=== PATIENT | male | born 1990 | race Caucasian/White ===

== ENCOUNTER 2018-12-29 18:16 | Emergency (ER) | payer OTHER ==
[2018-12-29] MEDS ORDERED: Proparacaine 0.5% Ophth Soln 15 ML Bottle EYEBOTH ONE (19:03)
[2018-12-29] MEDS ORDERED: Benoxinate/Fluorescein 0.4-0.25% Ophth Soln 5 ML Bottle EYEBOTH ONE (19:03)
[2018-12-29] MEDS ORDERED: Fluorescein 0.6 MG Ophth Strip ONE (19:06)
--- NOTE | 2018-12-29 19:24 | EDM.PDOC ---
ED HPI GENERAL MEDICAL PROBLEM - General Chief Complaint: Eye Problems Stated Complaint: FB IN EYE Time Seen by Provider: 12/29/18 18:53 Source of Information: Reports: Patient History Limitations: Reports: No Limitations - History of Present Illness INITIAL COMMENTS - FREE TEXT/NARRATIVE: The patient was working wit a saws all today at work on metal and he thinks he has a piece of metal in his left eye. He has pain and irritation and he has blurry vision. He says the blurry vision is better now. He was not welding or grinding. He did flush out his eye. Onset: Sudden Duration: Hour(s): Location: Reports: Other (Left eye) Quality: Reports: Sharp Severity: Moderate Improves with: Reports: None Worsens with: Reports: None Associated Symptoms: Reports: No Other Symptoms - Related Data Allergies Allergy/AdvReac Type Severity Reaction Status Date / Time No Known Allergies Allergy Verified 12/29/18 18:31 Home Meds: Home Meds Ciprofloxacin [Ciprofloxacin 0.3% Ophth Soln] 1 drop EYELF Q4HR #1 bottle [Rx] Past Medical History - Past Health History Medical/Surgical History: Denies Medical/Surgical History Social & Family History - Tobacco Use Smoking Status *Q: Never Smoker - Caffeine Use Caffeine Use: Reports: Energy Drinks - Recreational Drug Use Recreational Drug Use: No ED ROS GENERAL - Review of Systems Review Of Systems: See Below Constitutional: Reports: No Symptoms HEENT: Reports: Eye Pain Respiratory: Reports: No Symptoms Cardiovascular: Reports: No Symptoms Endocrine: Reports: No Symptoms GI/Abdominal: Reports: No Symptoms : Reports: No Symptoms ED EXAM GENERAL W FULL EYE - Physical Exam Exam: See Below Exam Limited By: No Limitations General Appearance: Alert, No Apparent Distress Eye Exam: Left Eye: Conjunctival Injection, Corneal Abrasion, Bilateral Eye: EOMI, PERRL Eyelids: Left: Lid Everted for Exam, Bilateral: Normal Appearance Conjunctiva & Sclera: Left: Injected Cornea Exam: Left: Corneal Abrasion Extraocular Movements: Bilateral: Intact Pupillary Reaction: Bilateral: Brisk Anterior Chamber: Left: Normal Appearance Ears: Normal External Exam Nose: Normal Inspection Head: Atraumatic, Normocephalic Course - Vital Signs Last Recorded V/S: Last Vital Signs Temp 97.4 F 12/29/18 18:29 Pulse 70 12/29/18 18:29 Resp 16 12/29/18 18:29 BP 152/78 H 12/29/18 18:29 Pulse Ox 95 12/29/18 18:29 - Orders/Labs/Meds Meds: Medications Discontinued Medications Generic Name Dose Route Start Last Admin Trade Name Anastacio PRN Reason Stop Dose Admin Fluorescein Sodium Confirm 12/29/18 19:06 12/29/18 19:13 Ful-Sylvia Administered 12/29/18 19:07 1.2 mg Dose Administration 1.2 mg .ROUTE .STK-MED ONE Fluorescein Sodium/Benoxinate HCl 1 ml 12/29/18 19:03 12/29/18 19:13 Fluress Ophth Soln EYEBOTH 12/29/18 19:04 Not Given ONETIME ONE Proparacaine HCl 1 ml 12/29/18 19:03 12/29/18 19:13 Proparacaine 0.5% Ophth Soln EYEBOTH 12/29/18 19:04 1 ml ONETIME ONE Administration - Re-Assessments/Exams Free Text/Narrative Re-Assessment/Exam: 12/29/18 19:26 He has a corneal abrasion. I will get him on some cipro drops. Departure - Departure Time of Disposition: 19:30 Disposition: Home, Self-Care 01 Condition: Good Clinical Impression: Corneal abrasion Qualifiers: Encounter type: initial encounter Laterality: left Qualified Code(s): S05.02XA - Injury of conjunctiva and corneal abrasion without foreign body, left eye, initial encounter - Discharge Information *PRESCRIPTION DRUG MONITORING PROGRAM REVIEWED*: Not Applicable *COPY OF PRESCRIPTION DRUG MONITORING REPORT IN PATIENT CAESAR: Not Applicable Prescriptions: Ciprofloxacin [Ciprofloxacin 0.3% Ophth Soln] 1 drop EYELF Q4HR #1 bottle Referrals: PCP,None [Primary Care Provider] - Forms: ED Department Discharge Additional Instructions: Take tylenol or motrin for pain. Use the cipro eye drops 1 drop in the left eye every 4 hours while awake for 1 week. Please return if you are worse.
== END 2018-12-29 19:39 | disposition home or self-care (01) ==
LOC: JD.ED 18:16
DX: S05.02XA Injury of conjunctiva and corneal abrasion without foreign body, left eye, initial encounter (principal); X58.XXXA Exposure to other specified factors, initial encounter
CPT/HCPCS: 99283

== ENCOUNTER 2019-10-11 08:35 | Day surgery (SDC) | payer BC ==
[~2019-10-11 08:35] MED LIST: Lactated Ringers 1,000 ML IV SCH; Lidocaine 1%/Sod Bicarbonate in NS 8.4% 1 ML Syringe IDERM PRN; Sodium Chloride 0.9% 10 ML Syringe FLUSH PRN
[2019-10-11] MEDS ORDERED: Lidocaine 1% 4 ML ONE (08:45)
[2019-10-11] MEDS ORDERED: Propofol 200 MG/20 ML SDV ONE ×2 (08:46→08:48)
[2019-10-11] MEDS ORDERED: fentaNYL 100 MCG/2 ML SDV ONE (08:46)
[2019-10-11] MEDS ORDERED: Ondansetron 4 MG/2 ML SDV IVPUSH PRN (09:23)
--- NOTE | 2019-10-11 09:23 | PCM.PREANE ---
Preanesthetic Assessment - Procedure Proposed Procedure: EGD - Anesthesia/Transfusion/Family Hx Anesthesia History: Prior Anesthesia Without Reaction Family History of Anesthesia Reaction: No Additional History: No previous problems with anesthesia or with intubation - Review of Systems General: No Symptoms Pulmonary: No Symptoms Cardiovascular: No Symptoms Gastrointestinal: No Symptoms Neurological: No Symptoms Other: Reports: None - Physical Assessment NPO Status Date: 10/10/19 NPO Status Time: 23:00 Vital Signs: Last Vital Signs Temp 36.2 C 10/11/19 08:40 Pulse 84 10/11/19 08:40 Resp 16 10/11/19 08:40 BP 138/84 10/11/19 08:40 Pulse Ox 97 10/11/19 08:40 Height: 6 ft 2 in Weight: 140.16 kg ASA Class: 2 Mental Status: Alert & Oriented x3 Airway Class: Mallampati = 2 Dentition: Reports: Normal Dentition Thyro-Mental Finger Breadths: 3 (heavy moreno) Mouth Opening Finger Breadths: 3 ROM/Head Extension: Full Lungs: Clear to Auscultation, Normal Respiratory Effort Cardiovascular: Regular Rate, Regular Rhythm - Allergies Allergies/Adverse Reactions: Allergies Allergy/AdvReac Type Severity Reaction Status Date / Time No Known Allergies Allergy Verified 10/10/19 13:17 - Acknowledgements Anesthesia Type Planned: MAC Pt an Appropriate Candidate for the Planned Anesthesia: Yes Alternatives and Risks of Anesthesia Discussed w Pt/Guardian: Yes Pt/Guardian Understands and Agrees with Anesthesia Plan: Yes PreAnesthesia Questionnaire - Past Health History Medical/Surgical History: Denies Medical/Surgical History HEENT History: Reports: Impaired Vision Cardiovascular History: Reports: Other (See Below) Other Cardiovascular History: chest pain, palpitations, pericarditis Respiratory History: Reports: SOB Gastrointestinal History: Reports: GERD, Other (See Below) Other Gastrointestinal History: anal fistula, pilonidal cyst, melanosis coli Genitourinary History: Reports: None MANAGER NUCLEAR History: Reports: None Musculoskeletal History: Reports: None Neurological History: Reports: None Psychiatric History: Reports: None Endocrine/Metabolic History: Reports: Obesity/BMI 30+ Hematologic History: Reports: None Immunologic History: Reports: None Oncologic (Cancer) History: Reports: None Dermatologic History: Reports: None - Infectious Disease History Infectious Disease History: Reports: Chicken Pox - Past Surgical History Head Surgeries/Procedures: Reports: None HEENT Surgical History: Reports: None Cardiovascular Surgical History: Reports: None Respiratory Surgical History: Reports: None GI Surgical History: Reports: Colonoscopy Female Surgical History: Reports: None Male Surgical History: Reports: None Endocrine Surgical History: Reports: None Neurological Surgical History: Reports: None Musculoskeletal Surgical History: Reports: None Oncologic Surgical History: Reports: None Dermatological Surgical History: Reports: None - SUBSTANCE USE Smoking Status *Q: Former Smoker Recreational Drug Use History: No - HOME MEDS Home Medications: Home Meds Omeprazole Magnesium [Prilosec Otc] 40 mg PO DAILY 08/17/19 [History] Colchicine 0.6 mg PO BID 10/10/19 [History] Indomethacin 50 mg PO DAILY 10/10/19 [History] Polyethylene Glycol 3350 [MiraLAX] 17 g PO DAILY PRN 10/10/19 [History] hydrOXYzine HCL [hydrOXYzine] 25 mg PO ASDIRECTED PRN 10/10/19 [History] - CURRENT (IN HOUSE) MEDS Current Meds: Current Medications Lactated Ringer's (Ringers, Lactated) 1,000 mls @ 125 mls/hr IV ASDIRECTED MARTHA Stop: 10/11/19 23:00 Last Admin: 10/11/19 08:55 Dose: 125 mls/hr Lidocaine/Sodium Bicarbonate (Buffered Lidocaine 1% In Ns 8.4%) 0.25 ml IDERM ONETIME PRN PRN Reason: Prior to IV Start Stop: 10/11/19 18:00 Last Admin: 10/11/19 08:55 Dose: 0.25 ml Sodium Chloride (Saline Flush) 10 ml FLUSH ASDIRECTED PRN PRN Reason: Keep Vein Open Stop: 10/11/19 18:00 Discontinued Medications Fentanyl (Sublimaze) Confirm Administered Dose 100 mcg .ROUTE .STK-MED ONE Stop: 10/11/19 08:47 Lidocaine HCl (Xylocaine-Mpf 1%) Confirm Administered Dose 4 mls @ as directed .ROUTE .STK-MED ONE Stop: 10/11/19 08:46 Propofol (Diprivan 20 Ml) Confirm Administered Dose 200 mg .ROUTE .STK-MED ONE Stop: 10/11/19 08:47 Propofol (Diprivan 20 Ml) Confirm Administered Dose 200 mg .ROUTE .STK-MED ONE Stop: 10/11/19 08:49
--- NOTE | 2019-10-11 09:46 | PCM.POSTAN ---
POST ANESTHESIA ASSESSMENT - MENTAL STATUS Mental Status: Alert, Oriented - VITAL SIGNS Vital Signs: Last Vital Signs Temp 36.8 C 10/11/19 09:29 Pulse 71 10/11/19 09:29 Resp 16 10/11/19 09:29 BP 125/68 10/11/19 09:29 Pulse Ox 96 10/11/19 09:29 - RESPIRATORY Respiratory Status: Respiratory Rate WNL, Airway Patent, O2 Saturation Stable - CARDIOVASCULAR CV Status: Pulse Rate WNL, Blood Pressure Stable - GASTROINTESTINAL GI Status: No Symptoms - PAIN Pain Score: 0 - POST OP HYDRATION Hydration Status: Adequate & Stable - OBSERVATIONS Free Text/Narrative:: Routine MAC. Transfer to OPS with handoff to RN. VSS, SV, CASTRO, FAC, CTAB, 0/10. No concerns at this time.
--- NOTE | 2019-10-11 09:47 | PCM48HPAN ---
Post Anesthesia Note - EVALUATION WITHIN 48HRS OF ANESTHETIC Vital Signs in Normal Range: Yes Patient Participated in Evaluation: Yes Respiratory Function Stable: Yes Airway Patent: Yes Cardiovascular Function Stable: Yes Hydration Status Stable: Yes Pain Control Satisfactory: Yes Nausea and Vomiting Control Satisfactory: Yes Mental Status Recovered: Yes Vital Signs: Last Vital Signs Temp 36.8 C 10/11/19 09:29 Pulse 71 10/11/19 09:29 Resp 16 10/11/19 09:29 BP 125/68 10/11/19 09:29 Pulse Ox 96 10/11/19 09:29 - COMMENTS/OBSERVATIONS Free Text/Narrative:: Routine. No concerns. Okay to discharge.
--- NOTE | 2019-10-11 09:54 | PCM.OPNOTE ---
- General Post-Op/Procedure Note Date of Surgery/Procedure: 10/11/19 Findings: 1. Gastritis 2. Small hiatal hernia (1-2cm) with mildly irregular GE junction 3. Abnormal duodenal mucosa Pre Op Diagnosis: Odynophagia and chest pain Post-Op Diagnosis: same Anesthesia Technique: MAC Primary Surgeon: Zoie Gonzalez Anesthesia Provider: Lasha Xie Pathology: 1. Duodenum biposy 2. GE junction and gastric antrum EBL in mLs: 0 Complications: none apparent Condition: Good
--- NOTE | 2019-10-11 10:01 | PCM.PRNOTE ---
- Free Text/Narrative Note: Operative Report Date of procedure: October 11, 2019 Preoperative diagnosis: Odynophagia and chest pain Postoperative diagnosis: Same Surgeon: Zoie Gonzalez M.D. Procedure: EGD with biopsy Anesthesia: MAC Anesthesiologist: Tyler Xie CRNA IV fluids: See anesthesia record Estimated blood loss: 0 mL Findings: 1. Gastritis 2. Small hiatal hernia (1-2cm) with mildly irregular GE junction 3. Abnormal duodenal mucosa Specimens: 1. Duodenal biopsy 2. GE junction and gastric antrum Indication: The patient is an 29 -year-old gentleman who presented with odynophagia and chest pain. The patient was consented for an EGD. Risk of perforation was discussed. The patient's consent was obtained Description of the procedure: The patient was taken to the endoscopy suite and placed on hemodynamic monitoring. The nurse core paster induced MAC anesthesia. A bite block was placed. The patient was positioned in the left lateral decubitus position. A timeout was performed. The endoscope was gently placed into the mouth to the back of the pharynx and introduced into the esophagus. The scope was gently advanced under direct visualization down to the level of the lower esophageal sphincter. A small sliding hiatal hernia (1-2 cm) was noted. The stomach was then entered. Normal rugal folds were noted with presence of bilious gastric secretions in the stomach. There was erythema diffusely in the stomach mucosa. The scope was advanced into the antrum. We noted gastritis. The pylorus was then entered and the first and second portion of the duodenum was inspected. We did note some abnormal appearance of the villous architecture and biopsies were taken with a cold biopsy forceps. There were no ulcerations in the duodenum. Biopsies were then taken with a cold biopsy forceps in the antrum. The scope was then retroflexed in the cardia and fundus were investigated. No other abnormalities were noted. The scope was then withdrawn while inspecting the esophagus. There was mild irregularity at the GE junction. Biopsies were taken with the cold biopsy forceps in 4 quadrants around the GE junction. There was no additional esophagitis. There was biliary secretions refluxing into the upper esophagus and near the vocal cords. This was suctioned. The procedure was terminated. the patient tolerated the procedure well without any evidence of complications. Instructions: Continue PPI. Follow-up with surgeon Zoie Gonzalez MD General Surgery
[2019-10-11] MEDS ORDERED: Midazolam 1 MG/ML 2 ML SDV IVPUSH ONE (11:58)
== END 2019-10-11 10:28 | disposition home or self-care (01) ==
LOC: JD.SDS 08:35
PROVIDERS: ATTEND Surgery
DX: K29.50 Unspecified chronic gastritis without bleeding (principal); K31.89 Other diseases of stomach and duodenum; K44.9 Diaphragmatic hernia without obstruction or gangrene; K22.8 Other specified diseases of esophagus; Z87.891 Personal history of nicotine dependence; Z79.899 Other long term (current) drug therapy
CPT/HCPCS: 00731; J2001; J2704; J3010; J7120

== ENCOUNTER 2020-07-08 06:59 | Observation (INO) | payer BC ==
[~2020-07-08 06:59] MED LIST changes: +Albuterol 0.083% 2.5 MG/3 ML Neb Soln NEB SCH
[2020-07-08] MEDS ORDERED: Lidocaine 1% 4 ML ONE (07:38)
[2020-07-08] MEDS ORDERED: Rocuronium 50 MG/5 ML Vial ONE ×5 (07:38→11:33)
[2020-07-08] MEDS ORDERED: Propofol 200 MG/20 ML SDV ONE ×3 (07:39→12:35)
[2020-07-08] MEDS ORDERED: fentaNYL 250 MCG/5 ML SDV ONE ×3 (07:39→10:38)
[2020-07-08] MEDS ORDERED: Ondansetron 4 MG/2 ML SDV ONE ×2 (08:19→13:41)
[2020-07-08] MEDS ORDERED: Dexamethasone 4 MG/ML 5 ML MDV ONE (08:19)
[2020-07-08] MEDS ORDERED: Morphine 10 MG/ML SDV ONE (08:20)
[2020-07-08] MEDS ORDERED: ceFAZolin 1 GM Vial ONE (08:22)
--- NOTE | 2020-07-08 08:30 | PCM.PREANE ---
Preanesthetic Assessment - Procedure Proposed Procedure: Laparoscopic Sam Fundoplication - Anesthesia/Transfusion/Family Hx Anesthesia History: Prior Anesthesia Without Reaction Family History of Anesthesia Reaction: No Transfusion History: Unknown - Review of Systems General: No Symptoms Pulmonary: No Symptoms Cardiovascular: No Symptoms Gastrointestinal: No Symptoms Neurological: No Symptoms Other: Reports: None - Physical Assessment NPO Status Date: 07/08/20 (greater than 8 hours) Vital Signs: Last Vital Signs Temp 36.1 C 07/08/20 07:10 Pulse 74 07/08/20 07:10 Resp 16 07/08/20 07:10 BP 133/79 07/08/20 07:10 Pulse Ox 96 07/08/20 07:10 Height: 6 ft 2 in Weight: 141.067 kg ASA Class: 2 Mental Status: Alert & Oriented x3 Airway Class: Mallampati = 3 Dentition: Reports: Normal Dentition Thyro-Mental Finger Breadths: 3 Mouth Opening Finger Breadths: 3 ROM/Head Extension: Full Lungs: Clear to Auscultation, Normal Respiratory Effort Cardiovascular: Regular Rate, Regular Rhythm - Lab Values: Laboratory Last Values SARS-CoV-2 (PCR) Not detected (NOT DETECT) 07/04/20 13:00 - Allergies Allergies/Adverse Reactions: Allergies Allergy/AdvReac Type Severity Reaction Status Date / Time No Known Allergies Allergy Verified 07/08/20 07:55 - Acknowledgements Anesthesia Type Planned: General Anesthesia Pt an Appropriate Candidate for the Planned Anesthesia: Yes Alternatives and Risks of Anesthesia Discussed w Pt/Guardian: Yes Pt/Guardian Understands and Agrees with Anesthesia Plan: Yes PreAnesthesia Questionnaire - Past Health History Medical/Surgical History: Denies Medical/Surgical History HEENT History: Reports: Impaired Vision Cardiovascular History: Reports: Other (See Below) Other Cardiovascular History: chest pain, palpitations, pericarditis Respiratory History: Reports: SOB Gastrointestinal History: Reports: GERD Other Gastrointestinal History: anal fistula, pilonidal cyst, melanosis coli Genitourinary History: Reports: Other (See Below) Other Genitourinary History: hematuria CHIEF OF FIELD OPERATIONS History: Reports: None Musculoskeletal History: Reports: None Neurological History: Reports: None Psychiatric History: Reports: None Endocrine/Metabolic History: Reports: Obesity/BMI 30+ Hematologic History: Reports: None Immunologic History: Reports: None Oncologic (Cancer) History: Reports: None Dermatologic History: Reports: None - Infectious Disease History Infectious Disease History: Reports: Chicken Pox - Past Surgical History Head Surgeries/Procedures: Reports: None HEENT Surgical History: Reports: None Cardiovascular Surgical History: Reports: None Respiratory Surgical History: Reports: None GI Surgical History: Reports: Colonoscopy, EGD, Other (See Below) Other GI Surgeries/Procedures: pilonidal cystectomy and anal fistulotomy Female Surgical History: Reports: None Male Surgical History: Reports: None Endocrine Surgical History: Reports: None Neurological Surgical History: Reports: None Musculoskeletal Surgical History: Reports: None Oncologic Surgical History: Reports: None Dermatological Surgical History: Reports: None - SUBSTANCE USE Smoking Status *Q: Former Smoker Recreational Drug Use History: No - HOME MEDS Home Medications: Home Meds Omeprazole Magnesium [Prilosec Otc] 40 mg PO DAILY 08/17/19 [History] - CURRENT (IN HOUSE) MEDS Current Meds: Current Medications Albuterol (Proventil Neb Soln) 2.5 mg NEB ONETIME MARTHA Stop: 07/08/20 18:00 Lactated Ringer's (Ringers, Lactated) 1,000 mls @ 125 mls/hr IV ASDIRECTED MARTHA Stop: 07/08/20 23:00 Last Admin: 07/08/20 07:15 Dose: 125 mls/hr Documented by: Lidocaine/Sodium Bicarbonate (Buffered Lidocaine 1% In Ns 8.4%) 0.25 ml IDERM ONETIME PRN PRN Reason: Prior to IV Start Stop: 07/08/20 18:00 Last Admin: 07/08/20 07:15 Dose: 0.25 ml Documented by: Sodium Chloride (Saline Flush) 10 ml FLUSH ASDIRECTED PRN PRN Reason: Keep Vein Open Stop: 07/08/20 18:00 Discontinued Medications Cefazolin Sodium (Ancef) Confirm Administered Dose 3 gm .ROUTE .STK-MED ONE Stop: 07/08/20 08:23 Dexamethasone (Dexamethasone) Confirm Administered Dose 20 mg .ROUTE .STK-MED ONE Stop: 07/08/20 08:20 Fentanyl (Sublimaze) Confirm Administered Dose 250 mcg .ROUTE .STK-MED ONE Stop: 07/08/20 07:40 Lidocaine HCl (Xylocaine-Mpf 1%) Confirm Administered Dose 4 mls @ as directed .ROUTE .STK-MED ONE Stop: 07/08/20 07:39 Morphine Sulfate (Morphine) Confirm Administered Dose 10 mg .ROUTE .STK-MED ONE Stop: 07/08/20 08:21 Ondansetron HCl (Zofran) Confirm Administered Dose 4 mg .ROUTE .STK-MED ONE Stop: 07/08/20 08:20 Propofol (Diprivan 20 Ml) Confirm Administered Dose 400 mg .ROUTE .STK-MED ONE Stop: 07/08/20 07:40 Rocuronium [place] (Zemuron) Confirm Administered Dose 50 mg .ROUTE .STK-MED ONE Stop: 07/08/20 07:39
[2020-07-08] MEDS ORDERED: Bupivacaine 0.5%/EPINEPHrine 1:200,000 50 ML MDV ONE (08:39)
[2020-07-08] MEDS ORDERED: Ketamine 500 mg/10 ML MDV ONE (10:44)
[2020-07-08] MEDS ORDERED: Lactated Ringers 4,000 ML ONE (11:33)
[2020-07-08] MEDS ORDERED: Ketorolac 30 MG/ML SDV ONE (13:27)
[2020-07-08] MEDS ORDERED: diphenhydrAMINE 50 MG/ML SDV IVPUSH PRN (14:20)
[2020-07-08] MEDS ORDERED: Promethazine 25 MG/ML SDV IM PRN (14:20)
[2020-07-08] MEDS ORDERED: Metoclopramide 10 MG/2 ML SDV IV PRN (14:20)
--- NOTE | 2020-07-08 14:21 | PCM.POSTAN ---
POST ANESTHESIA ASSESSMENT - MENTAL STATUS Mental Status: Alert, Oriented - VITAL SIGNS Vital Signs: Last Vital Signs Temp 96.9 F 07/08/20 07:10 Pulse 74 07/08/20 07:10 Resp 16 07/08/20 07:10 BP 133/79 07/08/20 07:10 Pulse Ox 96 07/08/20 07:10 159/93 94% on 2L 108 13 100.2f - RESPIRATORY Respiratory Status: Respiratory Rate WNL, Airway Patent, O2 Saturation Stable, Supplemental Oxygen - CARDIOVASCULAR CV Status: Pulse Rate WNL, Blood Pressure Stable - GASTROINTESTINAL GI Status: No Symptoms - PAIN Pain Score: 0 - POST OP HYDRATION Hydration Status: Adequate & Stable
--- NOTE | 2020-07-08 15:18 | PCM48HPAN ---
Post Anesthesia Note - EVALUATION WITHIN 48HRS OF ANESTHETIC Vital Signs in Normal Range: Yes Patient Participated in Evaluation: No Respiratory Function Stable: Yes Airway Patent: Yes Cardiovascular Function Stable: Yes Hydration Status Stable: Yes Pain Control Satisfactory: Yes Nausea and Vomiting Control Satisfactory: Yes Mental Status Recovered: Yes Vital Signs: Last Vital Signs Temp 37.2 C 07/08/20 14:45 Pulse 100 07/08/20 14:45 Resp 12 07/08/20 14:45 BP 163/94 H 07/08/20 14:45 Pulse Ox 95 07/08/20 14:45 - COMMENTS/OBSERVATIONS Free Text/Narrative:: Routine recovery after extensive anesthetic course. Transfer to acute care nursing for overnight stay. No concerns at this time. VSS, SV, CASTRO, FAC, CTAB.
--- NOTE | 2020-07-08 15:19 | OR ---
DATE OF OPERATION: 07/08/2020 SURGEON: Arlen Bacon MD PREOPERATIVE DIAGNOSIS: Severe reflux disease. POSTOPERATIVE DIAGNOSIS: Severe reflux disease. OPERATION PERFORMED: 1. Laparoscopic Sam fundoplication. 2. Intraoperative esophagogastroduodenoscopy. ANESTHESIA: General endotracheal. ESTIMATED BLOOD LOSS: 50 mL. URINE OUTPUT: 500 mL. FLUIDS: 5 L. COMPLICATIONS: None. NEED FOR SKILLED ASSISTANCE: Skilled assistance was needed in this case. The photography assistant helped with patient preparation, holding camera and retracting tissue during the surgery. INDICATIONS AND CONSENT: The patient is a 30-year-old male who has been struggling with chest pain as well as severe reflux refractory to medical management. The patient underwent preop evaluation for possible surgical intervention for his severe reflux, and he was deemed a good candidate for this procedure and a better candidate for a weight loss procedure. After much discussion, patient made it clear that he was not interested in the weight loss procedure at this time. I saw the patient in clinic and discussed risks, benefits, and alternatives to the procedure, and he agreed to proceed with the procedures. Informed consent was obtained. DESCRIPTION OF PROCEDURE: The patient was taken to the operating room and placed in supine position. Then, general endotracheal anesthesia was induced. Preop antibiotics were given. The patient was appropriately padded. Then, the patient's positioning was modified into lithotomy with Danilo stirrups. Then, a Zambrano catheter was placed. The abdomen was clipped of any hair and prepped and draped in the usual sterile fashion. A time-out was performed prior to the start of the procedure. I began the procedure by injecting local anesthetic in the left upper quadrant. The local anesthetic consisted of 5% bupivacaine with epinephrine. The local anesthetic was injected in the left upper quadrant. A stab incision was made, a Veress needle was placed, and the abdomen was insufflated to 15 mmHg. Then, a 12 mm port was placed at this location under direct visualization of 10 laparoscope. Inspection of the abdomen did not reveal any injuries due to the Veress needle insertion or trocar placement. Another 12 mm trocar was placed just to the left and superior of the umbilicus. Then, 2 additional 5 mm trocars were placed, one in the right upper quadrant, and another one in the left lateral abdomen. Liver retractor was then placed through an incision in the subxiphoid position, and the liver retractor was held in position by a retractor clamp. Then, we began the procedure by taking down the pars flaccida, accessing the right sondra. The peritoneum of the right sondra was opened, and midsternum was entered. There was a large paraesophageal fat pad. This was taken down at the anterior position of the esophagus. Then, at this point, the lesser sac was entered. Dissection was carried out. Short gastrics were ligated, and the left sondra was dissected free from the esophagus down to the apex of the crura. All this dissection was carried out with LigaSure Impact along with hand-held Bovie. Once the right and left crura were dissected, a retroesophageal window was made, and a Chichester drain was placed to assist with retraction of the esophagus. Then, the esophagus was retracted caudally and posteriorly to access the anterior aspect of the esophagus. This was dissected free deep into the mediastinum. Additional dissection circumferentially was made around the esophagus, taking care to leave the vagus nerves intact. We had about 5 cm of intraabdominal esophagus without any tension. Once this was done, the stomach fundus was completely freed from its attachments around the spleen and the retroperitoneum. Then, at this point, the dissection was complete. Prior to placing a bougie, the hernia opening was closed. This was done with interrupted 0 Surgidac stitches, leaving a small opening at the apex of the crura so that not to kink the esophagus. Once this was done, then a 56-[place] bougie was carefully placed into the esophagus and down to the stomach, and a floppy Sam fundoplication was performed using 0 Surgidac stitches creating a 2 cm wrap above the GE junction. At this point, postoperative EGD was performed. The EGD confirmed intact and a well-placed wrap. We were able to pass the EGD without any resistance. Then, at this point, the air was suctioned out, and the scope was removed. The abdomen was reinspected and hemostasis was confirmed. Once this was done, the procedure was concluded. The 12 mm port sites were closed in 2 layers. The fascia was closed with 0 Vicryl stitches using Lenny-Bina device, and skin at all 5 sites was closed with 4-0 Monocryl, and Dermabond was applied. The abdomen was desufflated at this point. Counts were correct x2, and the patient was awoken from general anesthesia and taken to the PACU for recovery. The patient will be admitted to the hospital for observation. The patient will be allowed to have clear liquids tonight and hopefully advance to full liquids tomorrow before discharge home. MMODAL /[id number]
[2020-07-08] MEDS: Ondansetron 4 MG/2 ML SDV IVPUSH SCH ×2 (15:37→20:46)
[2020-07-08] MEDS: Acetaminophen 325 MG Tab PO SCH ×2 (15:37→22:16)
[2020-07-08] MEDS: Lactated Ringers 1,000 ML IV SCH (15:52)
[2020-07-08] MEDS: oxyCODONE 5 MG Tab PO PRN (18:40)
[2020-07-08] MEDS: HYDROmorphone 1 MG/ML Syringe IVPUSH PRN (19:20)
[2020-07-08] MEDS: Ondansetron 4 MG Tab.DIS PO PRN (19:28)
[2020-07-09] MEDS: Ondansetron 4 MG Tab.DIS PO PRN ×4 (00:16→21:17)
[2020-07-09] MEDS: Acetaminophen 325 MG Tab PO SCH ×5 (00:16→21:18)
[2020-07-09] MEDS: HYDROmorphone 1 MG/ML Syringe IVPUSH PRN ×5 (00:25→21:25)
[2020-07-09] MEDS: Lactated Ringers 1,000 ML IV SCH ×2 (01:53→16:10)
[2020-07-09] MEDS: Ondansetron 4 MG/2 ML SDV IVPUSH SCH ×2 (03:38→09:06)
[2020-07-09] MEDS ORDERED: Polyethylene Glycol 3350 Powder 17 GM Packet PO PRN (08:00)
--- NOTE | 2020-07-09 10:07 | PCM.PN ---
- General Info Date of Service: 07/09/20 Admission Dx/Problem (Free Text): Sam fundoplication Subjective Update: Patient had episodes of nausea last night. No nausea today. He has not been out of bed yet since last night. Breathing well. Functional Status: Reports: Pain Controlled - Review of Systems General: Reports: No Symptoms HEENT: Reports: No Symptoms Pulmonary: Reports: No Symptoms Cardiovascular: Reports: No Symptoms Gastrointestinal: Reports: Abdominal Pain (post op) Genitourinary: Reports: No Symptoms Musculoskeletal: Reports: No Symptoms Skin: Reports: No Symptoms Neurological: Reports: No Symptoms Psychiatric: Reports: No Symptoms - Patient Data Vitals - Most Recent: Last Vital Signs Temp 98.5 F 07/09/20 04:00 Pulse 95 07/09/20 05:00 Resp 12 07/09/20 05:00 BP 131/86 07/09/20 04:00 Pulse Ox 98 07/09/20 05:25 Weight - Most Recent: 150.593 kg I&O - Last 24 Hours: Intake & Output 07/08/20 07/09/20 07/09/20 22:59 06:59 14:59 Intake Total 1046 1300 Output Total 650 1900 Balance 396 -600 Lab Results Last 24 Hours: Laboratory Results - last 24 hr 07/09/20 07/09/20 Range/Units 05:23 05:23 WBC 9.75 H (4.23-9.07) K/mm3 RBC 4.75 (4.63-6.08) M/mm3 Hgb 13.9 (13.7-17.5) gm/dl Hct 40.4 (40.1-51.0) % MCV 85.1 D (79.0-92.2) fl MCH 29.3 (25.7-32.2) pg MCHC 34.4 (32.2-35.5) g/dl RDW Std Deviation 40.3 (35.1-43.9) fL Plt Count 277 (163-337) K/mm3 MPV 10.3 (9.4-12.3) fl Neut % (Auto) 75.9 H (34.0-67.9) % Lymph % (Auto) 13.3 L (21.8-53.1) % [place] % (Auto) 10.7 (5.3-12.2) % Eos % (Auto) 0 L (0.8-7.0) Baso % (Auto) 0.0 L (0.1-1.2) % Neut # (Auto) 7.40 H (1.78-5.38) K/mm3 Lymph # (Auto) 1.30 L (1.32-3.57) K/mm3 [place] # (Auto) 1.04 H (0.30-0.82) K/mm3 Eos # (Auto) 0.00 L (0.04-0.54) K/mm3 Baso # (Auto) 0.00 L (0.01-0.08) K/mm3 Sodium 143 (136-145) mEq/L Potassium 4.1 (3.5-5.1) mEq/L Chloride 105 (98-107) mEq/L Carbon Dioxide 28 (21-32) mEq/L Anion Gap 14.1 (5-15) BUN 9 (7-18) mg/dL Creatinine 0.8 (0.7-1.3) mg/dL Est Cr Clr Drug Dosing 155.55 mL/min Estimated GFR (MDRD) > 60 (>60) mL/min BUN/Creatinine Ratio 11.3 L (14-18) Glucose 119 H (74-106) mg/dL Calcium 8.1 L (8.5-10.1) mg/dL Phosphorus 4.4 (2.6-4.7) mg/dL Magnesium 1.6 L (1.8-2.4) mg/dl Med Orders - Current: Current Medications Acetaminophen (Tylenol) 650 mg PO Q6H [facility] Last Admin: 07/09/20 09:18 Dose: 650 mg Documented by: Diphenhydramine HCl (Benadryl) 25 mg IVPUSH Q4H PRN PRN Reason: Itching Last Admin: 07/09/20 00:22 Dose: 25 mg Documented by: Hydromorphone HCl (Dilaudid) 1 mg IVPUSH Q2H PRN PRN Reason: Pain (severe 7-10) Last Admin: 07/09/20 00:25 Dose: 1 mg Documented by: Lactated Ringer's (Ringers, Lactated) 1,000 mls @ 50 mls/hr IV ASDIRECTED [facility] Last Admin: 07/09/20 01:53 Dose: 100 mls/hr Documented by: Metoclopramide HCl (Reglan) 5 mg IV Q6H PRN PRN Reason: Nausea Ondansetron HCl (Zofran Odt) 4 mg PO Q4H PRN PRN Reason: Nausea/Vomiting Last Admin: 07/09/20 00:16 Dose: 4 mg Documented by: Oxycodone HCl (Oxycodone) 5 - 10 mg PO Q4H PRN PRN Reason: Abdominal Pain Last Admin: 07/08/20 18:40 Dose: 5 mg Documented by: Polyethylene Glycol (Miralax) 17 gm PO DAILY PRN PRN Reason: Constipation Promethazine HCl (Phenergan) 12.5 mg IM Q6H PRN PRN Reason: Nausea Last Admin: 07/09/20 00:21 Dose: 12.5 mg Documented by: Discontinued Medications Albuterol (Proventil Neb Soln) 2.5 mg NEB ONETIME [facility] Stop: 07/08/20 18:00 Bupivacaine HCl/Epinephrine Bitart (Marcaine 0.5%/Epinephrine 1:200,000) Confirm Administered Dose 50 ml .ROUTE .STK-MED ONE Stop: 07/08/20 08:40 Last Admin: 07/08/20 08:44 Dose: 48 ml Documented by: Cefazolin Sodium (Ancef) Confirm Administered Dose 3 gm .ROUTE .STK-MED ONE Stop: 07/08/20 08:23 Dexamethasone (Dexamethasone) Confirm Administered Dose 20 mg .ROUTE .STK-MED ONE Stop: 07/08/20 08:20 Fentanyl (Sublimaze) Confirm Administered Dose 250 mcg .ROUTE .STK-MED ONE Stop: 07/08/20 07:40 Fentanyl (Sublimaze) Confirm Administered Dose 250 mcg .ROUTE .STK-MED ONE Stop: 07/08/20 09:14 Fentanyl (Sublimaze) Confirm Administered Dose 250 mcg .ROUTE .STK-MED ONE Stop: 07/08/20 10:39 Glycopyrrolate (Robinul) Confirm Administered Dose 0.8 mg .ROUTE .STK-MED ONE Stop: 07/08/20 13:47 Lactated Ringer's (Ringers, Lactated) 1,000 mls @ 125 mls/hr IV ASDIRECTED [facility] Stop: 07/08/20 23:00 Last Admin: 07/08/20 07:15 Dose: 125 mls/hr Documented by: Lidocaine HCl (Xylocaine-Mpf 1%) Confirm Administered Dose 4 mls @ as directed .ROUTE .STK-MED ONE Stop: 07/08/20 07:39 Lactated Ringer's (Ringers, Lactated) Confirm Administered Dose 4,000 mls @ as directed .ROUTE .STK-MED ONE Stop: 07/08/20 11:34 Ketamine HCl (Ketalar) Confirm Administered Dose 500 mg .ROUTE .STK-MED ONE Stop: 07/08/20 10:45 Ketorolac Tromethamine (Toradol) Confirm Administered Dose 30 mg .ROUTE .STK-MED ONE Stop: 07/08/20 13:28 Lidocaine/Sodium Bicarbonate (Buffered Lidocaine 1% In Ns 8.4%) 0.25 ml IDERM ONETIME PRN PRN Reason: Prior to IV Start Stop: 07/08/20 18:00 Last Admin: 07/08/20 07:15 Dose: 0.25 ml Documented by: Morphine Sulfate (Morphine) Confirm Administered Dose 10 mg .ROUTE .STK-MED ONE Stop: 07/08/20 08:21 Neostigmine Methylsulfate (Neostigmine Methylsulfate) Confirm Administered Dose 5 mg .ROUTE .STK-MED ONE Stop: 07/08/20 13:46 Ondansetron HCl (Zofran) Confirm Administered Dose 4 mg .ROUTE .STK-MED ONE Stop: 07/08/20 08:20 Ondansetron HCl (Zofran) Confirm Administered Dose 4 mg .ROUTE .STK-MED ONE Stop: 07/08/20 13:42 Ondansetron HCl (Zofran) 4 mg IVPUSH Q6H [facility] Last Admin: 07/09/20 09:06 Dose: Not Given Documented by: Propofol (Diprivan 20 Ml) Confirm Administered Dose 400 mg .ROUTE .STK-MED ONE Stop: 07/08/20 07:40 Propofol (Diprivan 20 Ml) Confirm Administered Dose 200 mg .ROUTE .STK-MED ONE Stop: 07/08/20 10:21 Propofol (Diprivan 20 Ml) Confirm Administered Dose 200 mg .ROUTE .STK-MED ONE Stop: 07/08/20 12:36 Rocuronium [place] (Zemuron) Confirm Administered Dose 50 mg .ROUTE .STK-MED ONE Stop: 07/08/20 07:39 Rocuronium [place] (Zemuron) Confirm Administered Dose 50 mg .ROUTE .STK-MED ONE Stop: 07/08/20 09:44 Rocuronium [place] (Zemuron) Confirm Administered Dose 50 mg .ROUTE .STK-MED ONE Stop: 07/08/20 09:46 Rocuronium [place] (Zemuron) Confirm Administered Dose 50 mg .ROUTE .STK-MED ONE Stop: 07/08/20 10:24 Rocuronium [place] (Zemuron) Confirm Administered Dose 50 mg .ROUTE .STK-MED ONE Stop: 07/08/20 11:34 Sodium Chloride (Saline Flush) 10 ml FLUSH ASDIRECTED PRN PRN Reason: Keep Vein Open Stop: 07/08/20 18:00 - Exam General: Alert, Oriented, Cooperative Lungs: Clear to Auscultation, Normal Respiratory Effort Cardiovascular: Regular Rate, Regular Rhythm, No Murmurs GI/Abdominal Exam: No Organomegaly, No Distention, No Abnormal Bruit, No Mass, Distended (appropriately) Sepsis Event Note - Evaluation Sepsis Screening Result: No Definite Risk - Focused Exam Vital Signs: Vital Signs Temp Pulse Resp BP Pulse Ox Pulse Ox 07/09/20 05:25 98 07/09/20 05:00 95 12 96 07/09/20 04:01 90 11 L 96 07/09/20 04:00 98.5 F 88 12 131/86 96 07/09/20 03:59 91 11 L 96 07/09/20 03:00 97 12 96 07/09/20 02:00 97 11 L 97 07/09/20 01:00 98 11 L 95 07/09/20 00:01 97 14 142/81 H 97 07/09/20 00:00 98.2 F 97 15 95 07/08/20 23:00 100 13 96 07/08/20 22:37 103 H 13 95 - Problem List Review Problem List Initiated/Reviewed/Updated: No - My Orders Last 24 Hours: My Active Orders 07/08/20 14:05 Resuscitation Status Routine 07/08/20 14:20 Acetaminophen [TylenoL] 650 mg PO Q6H HYDROmorphone [Dilaudid] 1 mg IVPUSH Q2H PRN Lactated Ringers [Ringers, Lactated] 1,000 ml IV ASDIRECTED Metoclopramide [Reglan] 5 mg IV Q6H PRN Ondansetron [Zofran ODT] 4 mg PO Q4H PRN Promethazine [Phenergan] 12.5 mg IM Q6H PRN diphenhydrAMINE [Benadryl] 25 mg IVPUSH Q4H PRN oxyCODONE 5 - 10 mg PO Q4H PRN 07/08/20 14:20 Patient Status [ADT] Routine Ambulate [RC] .TID Cardiac Monitoring [RC] . DIRECTED Intake and Output [RC] ,16 January Shower [RC] ASDIRECTED Oxygen Therapy [RC] PRN Pulse Oximetry [RC] CONTINUOUS RT Incentive Spirometry [RC] Q1HWA Up ad [place] [RC] ASDIRECTED Up to Chair [RC] ASDIRECTED Urinary Catheter Assessment [RC] Q4HR Urinary Catheter Removal [RC] PER UNIT ROUTINE Vital Signs [RC] Q4HR Abdominal Binder [OM.PC] Per Unit Routine 07/08/20 Dinner Clear Liquid Diet [DIET] 07/09/20 08:00 polyethylene glycoL 3350 [MiraLAX] 17 gm PO DAILY PRN - Assessment Assessment:: POD 1 s/p Sam fundoplication for refractory GERD. - Plan Plan:: - IVF to 50 ml/hr - Cont CLD as pt had rouble with Jello. He is tolerating water and juices. Once he is tolerating CLD well, will advance to FLD - Continue scheduled nausea medications. His nausea had improved - Wean oxygen - Dc telemetry - OOB to ambulate today - Anticipate discharge tomorrow pending clinical improvement
[2020-07-09] MEDS: oxyCODONE 5 MG Tab PO PRN ×2 (15:14→16:09)
[2020-07-09] MEDS: Acetaminophen/HYDROcodone 325-5 MG Tab PO PRN (18:21)
[2020-07-10] MEDS: Acetaminophen/HYDROcodone 325-5 MG Tab PO PRN ×4 (01:28→12:48)
[2020-07-10] MEDS: Acetaminophen 325 MG Tab PO SCH ×2 (06:00→08:26)
--- NOTE | 2020-07-10 11:35 | PCM.PN ---
- General Info Date of Service: 07/10/20 Admission Dx/Problem (Free Text): Sam fundoplication Subjective Update: pain is controlled, the patient is ambulating, tolerated clears and FLD. he is urinating by himself. - Review of Systems General: Reports: No Symptoms HEENT: Reports: No Symptoms Pulmonary: Reports: No Symptoms Cardiovascular: Reports: No Symptoms Gastrointestinal: Reports: Abdominal Pain Genitourinary: Reports: No Symptoms Musculoskeletal: Reports: No Symptoms Skin: Reports: No Symptoms Neurological: Reports: No Symptoms - Patient Data Vitals - Most Recent: Last Vital Signs Temp 98.3 F 07/10/20 08:00 Pulse 97 07/10/20 08:00 Resp 19 07/10/20 08:00 BP 132/86 07/10/20 08:00 Pulse Ox 97 07/10/20 08:00 Weight - Most Recent: 144.9 kg I&O - Last 24 Hours: Intake & Output 07/09/20 07/10/20 07/10/20 22:59 06:59 14:59 Intake Total 924 317 Balance 924 317 Med Orders - Current: Current Medications Acetaminophen (Tylenol) 650 mg PO Q6H [facility] Last Admin: 07/10/20 08:26 Dose: 650 mg Documented by: Hydrocodone Bitart/Acetaminophen ([place] 325-5 Mg) 1 - 2 tab PO Q4H PRN PRN Reason: Pain (moderate 4-6) Last Admin: 07/10/20 08:26 Dose: 1 tab Documented by: Diphenhydramine HCl (Benadryl) 25 mg IVPUSH Q4H PRN PRN Reason: Itching Last Admin: 07/09/20 00:22 Dose: 25 mg Documented by: Metoclopramide HCl (Reglan) 5 mg IV Q6H PRN PRN Reason: Nausea Ondansetron HCl (Zofran Odt) 4 mg PO Q4H PRN PRN Reason: Nausea/Vomiting Last Admin: 07/09/20 21:17 Dose: 4 mg Documented by: Oxycodone HCl (Oxycodone) 5 - 10 mg PO Q4H PRN PRN Reason: Abdominal Pain Last Admin: 07/09/20 16:09 Dose: 5 mg Documented by: Polyethylene Glycol (Miralax) 17 gm PO DAILY PRN PRN Reason: Constipation Promethazine HCl (Phenergan) 12.5 mg IM Q6H PRN PRN Reason: Nausea Last Admin: 07/09/20 00:21 Dose: 12.5 mg Documented by: Discontinued Medications Albuterol (Proventil Neb Soln) 2.5 mg NEB ONETIME [facility] Stop: 07/08/20 18:00 Bupivacaine HCl/Epinephrine Bitart (Marcaine 0.5%/Epinephrine 1:200,000) Confirm Administered Dose 50 ml .ROUTE .STK-MED ONE Stop: 07/08/20 08:40 Last Admin: 07/08/20 08:44 Dose: 48 ml Documented by: Cefazolin Sodium (Ancef) Confirm Administered Dose 3 gm .ROUTE .STK-MED ONE Stop: 07/08/20 08:23 Dexamethasone (Dexamethasone) Confirm Administered Dose 20 mg .ROUTE .STK-MED ONE Stop: 07/08/20 08:20 Fentanyl (Sublimaze) Confirm Administered Dose 250 mcg .ROUTE .STK-MED ONE Stop: 07/08/20 07:40 Fentanyl (Sublimaze) Confirm Administered Dose 250 mcg .ROUTE .STK-MED ONE Stop: 07/08/20 09:14 Fentanyl (Sublimaze) Confirm Administered Dose 250 mcg .ROUTE .STK-MED ONE Stop: 07/08/20 10:39 Glycopyrrolate (Robinul) Confirm Administered Dose 0.8 mg .ROUTE .STK-MED ONE Stop: 07/08/20 13:47 Hydromorphone HCl (Dilaudid) 1 mg IVPUSH Q2H PRN PRN Reason: Pain (severe 7-10) Last Admin: 07/09/20 21:25 Dose: 1 mg Documented by: Lactated Ringer's (Ringers, Lactated) 1,000 mls @ 125 mls/hr IV ASDIRECTED [facility] Stop: 07/08/20 23:00 Last Admin: 07/08/20 07:15 Dose: 125 mls/hr Documented by: Lidocaine HCl (Xylocaine-Mpf 1%) Confirm Administered Dose 4 mls @ as directed .ROUTE .STK-MED ONE Stop: 07/08/20 07:39 Lactated Ringer's (Ringers, Lactated) Confirm Administered Dose 4,000 mls @ as directed .ROUTE .STK-MED ONE Stop: 07/08/20 11:34 Lactated Ringer's (Ringers, Lactated) 1,000 mls @ 50 mls/hr IV ASDIRECTED [facility] Last Admin: 07/09/20 16:10 Dose: 100 mls/hr Documented by: Ketamine HCl (Ketalar) Confirm Administered Dose 500 mg .ROUTE .STK-MED ONE Stop: 07/08/20 10:45 Ketorolac Tromethamine (Toradol) Confirm Administered Dose 30 mg .ROUTE .STK-MED ONE Stop: 07/08/20 13:28 Lidocaine/Sodium Bicarbonate (Buffered Lidocaine 1% In Ns 8.4%) 0.25 ml IDERM ONETIME PRN PRN Reason: Prior to IV Start Stop: 07/08/20 18:00 Last Admin: 07/08/20 07:15 Dose: 0.25 ml Documented by: Morphine Sulfate (Morphine) Confirm Administered Dose 10 mg .ROUTE .STK-MED ONE Stop: 07/08/20 08:21 Neostigmine Methylsulfate (Neostigmine Methylsulfate) Confirm Administered Dose 5 mg .ROUTE .STK-MED ONE Stop: 07/08/20 13:46 Ondansetron HCl (Zofran) Confirm Administered Dose 4 mg .ROUTE .STK-MED ONE Stop: 07/08/20 08:20 Ondansetron HCl (Zofran) Confirm Administered Dose 4 mg .ROUTE .STK-MED ONE Stop: 07/08/20 13:42 Ondansetron HCl (Zofran) 4 mg IVPUSH Q6H [facility] Last Admin: 07/09/20 09:06 Dose: Not Given Documented by: Propofol (Diprivan 20 Ml) Confirm Administered Dose 400 mg .ROUTE .STK-MED ONE Stop: 07/08/20 07:40 Propofol (Diprivan 20 Ml) Confirm Administered Dose 200 mg .ROUTE .STK-MED ONE Stop: 07/08/20 10:21 Propofol (Diprivan 20 Ml) Confirm Administered Dose 200 mg .ROUTE .STK-MED ONE Stop: 07/08/20 12:36 Rocuronium [place] (Zemuron) Confirm Administered Dose 50 mg .ROUTE .STK-MED ONE Stop: 07/08/20 07:39 Rocuronium [place] (Zemuron) Confirm Administered Dose 50 mg .ROUTE .STK-MED ONE Stop: 07/08/20 09:44 Rocuronium [place] (Zemuron) Confirm Administered Dose 50 mg .ROUTE .STK-MED ONE Stop: 07/08/20 09:46 Rocuronium [place] (Zemuron) Confirm Administered Dose 50 mg .ROUTE .STK-MED ONE Stop: 07/08/20 10:24 Rocuronium [place] (Zemuron) Confirm Administered Dose 50 mg .ROUTE .STK-MED ONE Stop: 07/08/20 11:34 Sodium Chloride (Saline Flush) 10 ml FLUSH ASDIRECTED PRN PRN Reason: Keep Vein Open Stop: 07/08/20 18:00 - Exam General: Alert, Oriented, Cooperative Lungs: Clear to Auscultation, Normal Respiratory Effort Cardiovascular: Regular Rate, Regular Rhythm GI/Abdominal Exam: Soft, No Organomegaly, No Distention, No Abnormal Bruit, No Mass, Tender (appropriately around the incisions) Sepsis Event Note - Evaluation Sepsis Screening Result: No Definite Risk - Focused Exam Vital Signs: Vital Signs Temp Pulse Resp BP Pulse Ox 07/10/20 08:00 98.3 F 97 19 132/86 97 07/10/20 04:00 98.4 F 12 128/74 96 07/10/20 00:00 98.4 F 12 128/78 95 - Problem List Review Problem List Initiated/Reviewed/Updated: No - My Orders Last 24 Hours: My Active Orders 07/09/20 18:12 Acetaminophen/HYDROcodone [Plains 325-5 MG] 1 - 2 tab PO Q4H PRN 07/10/20 Dinner Full Liquid Diet [DIET] - Assessment Assessment:: POD 1 s/p Sam fundoplication for refractory GERD. - Plan Plan:: - progressing well - DC IVF and all IV medications - Continue FLD - continue to encourage ambulation - discharge to home today. Discharge instructions provided.
--- NOTE | 2020-07-10 11:53 | PCM.DCSUM1 ---
Discharge Summary - Hospital Course Free Text/Narrative:: The patient underwent laparoscopic sam fundoplication for refractory GERD. He had some severe pain on POD1 and stayed for pain control. He tolerated clear liquid diet and was advanced to full liquid diet. On POD2, pain was controlled on oral medications, patient was ambulating, on room air and tolerating full liquid diet. He was discharged to home in stable condition. Diagnosis: Stroke: No - Discharge Data Discharge Date: 07/10/20 Discharge Disposition: Home, Self-Care 01 Condition: Good - Referral to Home Health Primary Care Physician: PCP None - Patient Instructions Diet: Full Liquid Diet (dietary instructions have been provided to the patient.) Activity: No Lifting Over 20 Pounds (for 2 weeks) Driving: Do Not Drive (if taking opioid pain medications) Showering/Bathing: May Shower, No Tub Bathing/Swimming Wound/Incision Care: Keep Operative Site/Wound Site Clean and Dry Notify Provider of: Fever, Increased Pain, Swelling and Redness, Nausea and/or Vomiting Other/Special Instructions: - Crush all tablets prior to taking. Can dissolve the crushed meds in apple sauce or juice prior to taking. - Take Over the counter Miralax daily while on Opioid pain medications to avoid constipation. - Discharge Plan *PRESCRIPTION DRUG MONITORING PROGRAM REVIEWED*: No *COPY OF PRESCRIPTION DRUG MONITORING REPORT IN PATIENT CAESAR: No Prescriptions/Med Rec: Hydrocodone/Acetaminophen [Hydrocodone-Acetamin 10-300 mg] 1 each PO Q6H PRN 7 Days #28 tablet PRN Reason: Abdominal Pain Ondansetron [Zofran ODT] 4 mg PO Q6H PRN 5 Days #20 tab.dis PRN Reason: Nausea/Vomiting Home Medications: Home Meds Hydrocodone/Acetaminophen [Hydrocodone-Acetamin 10-300 mg] 1 each PO Q6H PRN 7 Days #28 tablet 07/10/20 [Rx] Ondansetron [Zofran ODT] 4 mg PO Q6H PRN 5 Days #20 tab.dis 07/10/20 [Rx] Oxygen Therapy Mode: Room Air Referrals: Arlen Bacon MD [Physician] - (in 7-10 days) - Discharge Summary/Plan Comment DC Time >30 min.: Yes - General Info Date of Service: 07/10/20 Admission Dx/Problem (Free Text: Sam fundoplication Subjective Update: Pain is controlled on oral medications, patient is ambulating, tolerating oral diet, on room air. Functional Status: Reports: Pain Controlled, Tolerating Diet, Ambulating, Urinating - Review of Systems General: Reports: No Symptoms HEENT: Reports: No Symptoms Pulmonary: Reports: No Symptoms Cardiovascular: Reports: No Symptoms Gastrointestinal: Reports: Abdominal Pain Genitourinary: Reports: No Symptoms Musculoskeletal: Reports: No Symptoms Skin: Reports: No Symptoms Neurological: Reports: No Symptoms Psychiatric: Reports: No Symptoms - Patient Data Vitals - Most Recent: Last Vital Signs Temp 98.3 F 07/10/20 08:00 Pulse 97 07/10/20 08:00 Resp 19 07/10/20 08:00 BP 132/86 07/10/20 08:00 Pulse Ox 97 07/10/20 08:00 Weight - Most Recent: 144.9 kg I&O - Last 24 hours: Intake & Output 07/09/20 07/10/20 07/10/20 22:59 06:59 14:59 Intake Total 924 317 Balance 924 317 Med Orders - Current: Current Medications Acetaminophen (Tylenol) 650 mg PO Q6H [facility] Last Admin: 07/10/20 08:26 Dose: 650 mg Documented by: Hydrocodone Bitart/Acetaminophen ([place] 325-5 Mg) 1 - 2 tab PO Q4H PRN PRN Reason: Pain (moderate 4-6) Last Admin: 07/10/20 08:26 Dose: 1 tab Documented by: Diphenhydramine HCl (Benadryl) 25 mg IVPUSH Q4H PRN PRN Reason: Itching Last Admin: 07/09/20 00:22 Dose: 25 mg Documented by: Metoclopramide HCl (Reglan) 5 mg IV Q6H PRN PRN Reason: Nausea Ondansetron HCl (Zofran Odt) 4 mg PO Q4H PRN PRN Reason: Nausea/Vomiting Last Admin: 07/09/20 21:17 Dose: 4 mg Documented by: Oxycodone HCl (Oxycodone) 5 - 10 mg PO Q4H PRN PRN Reason: Abdominal Pain Last Admin: 07/09/20 16:09 Dose: 5 mg Documented by: Polyethylene Glycol (Miralax) 17 gm PO DAILY PRN PRN Reason: Constipation Promethazine HCl (Phenergan) 12.5 mg IM Q6H PRN PRN Reason: Nausea Last Admin: 07/09/20 00:21 Dose: 12.5 mg Documented by: Discontinued Medications Albuterol (Proventil Neb Soln) 2.5 mg NEB ONETIME [facility] Stop: 07/08/20 18:00 Bupivacaine HCl/Epinephrine Bitart (Marcaine 0.5%/Epinephrine 1:200,000) Confirm Administered Dose 50 ml .ROUTE .STK-MED ONE Stop: 07/08/20 08:40 Last Admin: 07/08/20 08:44 Dose: 48 ml Documented by: Cefazolin Sodium (Ancef) Confirm Administered Dose 3 gm .ROUTE .STK-MED ONE Stop: 07/08/20 08:23 Dexamethasone (Dexamethasone) Confirm Administered Dose 20 mg .ROUTE .STK-MED ONE Stop: 07/08/20 08:20 Fentanyl (Sublimaze) Confirm Administered Dose 250 mcg .ROUTE .STK-MED ONE Stop: 07/08/20 07:40 Fentanyl (Sublimaze) Confirm Administered Dose 250 mcg .ROUTE .STK-MED ONE Stop: 07/08/20 09:14 Fentanyl (Sublimaze) Confirm Administered Dose 250 mcg .ROUTE .STK-MED ONE Stop: 07/08/20 10:39 Glycopyrrolate (Robinul) Confirm Administered Dose 0.8 mg .ROUTE .STK-MED ONE Stop: 07/08/20 13:47 Hydromorphone HCl (Dilaudid) 1 mg IVPUSH Q2H PRN PRN Reason: Pain (severe 7-10) Last Admin: 07/09/20 21:25 Dose: 1 mg Documented by: Lactated Ringer's (Ringers, Lactated) 1,000 mls @ 125 mls/hr IV ASDIRECTED [facility] Stop: 07/08/20 23:00 Last Admin: 07/08/20 07:15 Dose: 125 mls/hr Documented by: Lidocaine HCl (Xylocaine-Mpf 1%) Confirm Administered Dose 4 mls @ as directed .ROUTE .STK-MED ONE Stop: 07/08/20 07:39 Lactated Ringer's (Ringers, Lactated) Confirm Administered Dose 4,000 mls @ as directed .ROUTE .STK-MED ONE Stop: 07/08/20 11:34 Lactated Ringer's (Ringers, Lactated) 1,000 mls @ 50 mls/hr IV ASDIRECTED [facility] Last Admin: 07/09/20 16:10 Dose: 100 mls/hr Documented by: Ketamine HCl (Ketalar) Confirm Administered Dose 500 mg .ROUTE .STK-MED ONE Stop: 07/08/20 10:45 Ketorolac Tromethamine (Toradol) Confirm Administered Dose 30 mg .ROUTE .STK-MED ONE Stop: 07/08/20 13:28 Lidocaine/Sodium Bicarbonate (Buffered Lidocaine 1% In Ns 8.4%) 0.25 ml IDERM ONETIME PRN PRN Reason: Prior to IV Start Stop: 07/08/20 18:00 Last Admin: 07/08/20 07:15 Dose: 0.25 ml Documented by: Morphine Sulfate (Morphine) Confirm Administered Dose 10 mg .ROUTE .STK-MED ONE Stop: 07/08/20 08:21 Neostigmine Methylsulfate (Neostigmine Methylsulfate) Confirm Administered Dose 5 mg .ROUTE .STK-MED ONE Stop: 07/08/20 13:46 Ondansetron HCl (Zofran) Confirm Administered Dose 4 mg .ROUTE .STK-MED ONE Stop: 07/08/20 08:20 Ondansetron HCl (Zofran) Confirm Administered Dose 4 mg .ROUTE .STK-MED ONE Stop: 07/08/20 13:42 Ondansetron HCl (Zofran) 4 mg IVPUSH Q6H [facility] Last Admin: 07/09/20 09:06 Dose: Not Given Documented by: Propofol (Diprivan 20 Ml) Confirm Administered Dose 400 mg .ROUTE .STK-MED ONE Stop: 07/08/20 07:40 Propofol (Diprivan 20 Ml) Confirm Administered Dose 200 mg .ROUTE .STK-MED ONE Stop: 07/08/20 10:21 Propofol (Diprivan 20 Ml) Confirm Administered Dose 200 mg .ROUTE .STK-MED ONE Stop: 07/08/20 12:36 Rocuronium [place] (Zemuron) Confirm Administered Dose 50 mg .ROUTE .STK-MED ONE Stop: 07/08/20 07:39 Rocuronium [place] (Zemuron) Confirm Administered Dose 50 mg .ROUTE .STK-MED ONE Stop: 07/08/20 09:44 Rocuronium [place] (Zemuron) Confirm Administered Dose 50 mg .ROUTE .STK-MED ONE Stop: 07/08/20 09:46 Rocuronium [place] (Zemuron) Confirm Administered Dose 50 mg .ROUTE .STK-MED ONE Stop: 07/08/20 10:24 Rocuronium [place] (Zemuron) Confirm Administered Dose 50 mg .ROUTE .STK-MED ONE Stop: 07/08/20 11:34 Sodium Chloride (Saline Flush) 10 ml FLUSH ASDIRECTED PRN PRN Reason: Keep Vein Open Stop: 07/08/20 18:00 - Exam General: Reports: Alert, Oriented, Cooperative Lungs: Reports: Clear to Auscultation, Normal Respiratory Effort Cardiovascular: Reports: Regular Rate, Regular Rhythm GI/Abdominal Exam: Soft, No Organomegaly, No Distention, No Abnormal Bruit, No Mass, Tender (appropriately)
[2020-07-10] MEDS: Ondansetron 4 MG Tab.DIS PO PRN (12:52)
--- NOTE | 2020-07-12 16:20 | PCM.SN.2 ---
- Free Text/Narrative Note: Addendum to the surgery procedure: Hiatal hernia repair was performed as well.
== END 2020-07-10 12:56 | disposition home or self-care (01) ==
LOC: JD.SDS 06:59 → JD.ICU 07:00 → EDSTATUS 08:00 → JD.ICU 08:58 → JD.SDS 14:00 → JD.ICU 14:01
PROVIDERS: ADMIT Surgery; ATTEND Surgery
DX: K21.9 Gastro-esophageal reflux disease without esophagitis (principal); E66.9 Obesity, unspecified; Z68.41 Body mass index [BMI] 40.0-44.9, adult; Z98.890 Other specified postprocedural states; Z01.812 Encounter for preprocedural laboratory examination; Z20.828 Contact with and (suspected) exposure to other viral communicable diseases; Z79.899 Other long term (current) drug therapy
CPT/HCPCS: 00790; 36415; 80048; 83735; 84100; 85025; A9270-GY; G0378; J0690; J1100; J1170; J1200; J1885; J2001; J2270; J2405; J2550; J2704; J2710; J3010; J3490; J7120; U0002

== ENCOUNTER 2020-12-09 12:48 | Emergency (ER) | payer BC ==
--- NOTE | 2020-12-09 13:52 | EDM.PDOC ---
ED HPI GENERAL MEDICAL PROBLEM - General Chief Complaint: Chest Pain Stated Complaint: CHEST PAIN Time Seen by Provider: 12/09/20 12:51 Source of Information: Reports: Patient, RN Notes Reviewed History Limitations: Reports: No Limitations - History of Present Illness INITIAL COMMENTS - FREE TEXT/NARRATIVE: Patient is a 30 year old male presenting to the ER with c/o intermittent chest pain since this morning. He describes intermittent, "sharpish-dull" midsternal chest pain. He states that it has occurred on a few occasions throughout the morning, but is not present at this time. He reports that he feels SOB with these episodes. Denies dizziness. He has been having episodes of palpitations for awhile now. He has a hx of pericarditis and had a f/u with his cardiolog ist, Dr. Gomez, last week and they had a discussion regarding his palpitations. His estimation manager recommended that he stop using energy drinks which he states he has. He denies any caffeine use at this time. She also recommended a holter monitor; however, the patient declined. Pt also has a hx of GERD, but states that since he had his haital hernia repaired last June it has resolved. He is no longer taking his omeprazole. Denies any other cardiac hx. - Related Data Allergies Allergy/AdvReac Type Severity Reaction Status Date / Time No Known Allergies Allergy Verified 12/09/20 12:57 Home Meds: Home Meds . [No Known Home Meds] 12/09/20 [History] Past Medical History - Past Health History Medical/Surgical History: Denies Medical/Surgical History HEENT History: Reports: Impaired Vision Cardiovascular History: Reports: Other (See Below) Other Cardiovascular History: chest pain, palpitations, pericarditis Respiratory History: Reports: SOB Gastrointestinal History: Reports: GERD Other Gastrointestinal History: anal fistula, pilonidal cyst, melanosis coli Genitourinary History: Reports: Other (See Below) Other Genitourinary History: hematuria [employer] WORK[employer]PER History: Reports: None Musculoskeletal History: Reports: None Neurological History: Reports: None Psychiatric History: Reports: None Endocrine/Metabolic History: Reports: Obesity/BMI 30+ Hematologic History: Reports: None Immunologic History: Reports: None Oncologic (Cancer) History: Reports: None Dermatologic History: Reports: None - Infectious Disease History Infectious Disease History: Reports: Chicken Pox - Past Surgical History Head Surgeries/Procedures: Reports: None HEENT Surgical History: Reports: None Cardiovascular Surgical History: Reports: None Respiratory Surgical History: Reports: None GI Surgical History: Reports: Colonoscopy, EGD, Other (See Below) Other GI Surgeries/Procedures: pilonidal cystectomy and anal fistulotomy Male Surgical History: Reports: None Endocrine Surgical History: Reports: None Neurological Surgical History: Reports: None Musculoskeletal Surgical History: Reports: None Oncologic Surgical History: Reports: None Dermatological Surgical History: Reports: None Social & Family History - Family History Family Medical History: No Pertinent Family History - Tobacco Use Tobacco Use Status *Q: Never Tobacco User - Caffeine Use Caffeine Use: Reports: Energy Drinks - Recreational Drug Use Recreational Drug Use: No ED ROS GENERAL - Review of Systems Review Of Systems: See Below Constitutional: Reports: No Symptoms HEENT: Reports: No Symptoms Respiratory: Reports: Shortness of Breath. Denies: Wheezing, Cough Cardiovascular: Reports: Chest Pain, Palpitations. Denies: Dyspnea on Exertion, Lightheadedness, Syncope Endocrine: Reports: No Symptoms GI/Abdominal: Reports: No Symptoms : Reports: No Symptoms Musculoskeletal: Reports: No Symptoms Skin: Reports: No Symptoms Neurological: Reports: No Symptoms Psychiatric: Reports: No Symptoms Hematologic/Lymphatic: Reports: No Symptoms Immunologic: Reports: No Symptoms ED EXAM, GENERAL - Physical Exam Exam: See Below General Appearance: Alert, WD/WN, No Apparent Distress Respiratory/Chest: No Respiratory Distress, Lungs Clear, Normal Breath Sounds, No Accessory Muscle Use, Chest Non-Tender Cardiovascular: Normal Peripheral Pulses, Regular Rate, Rhythm, No Edema, No Gallop, No JVD, No Murmur, No Rub GI/Abdominal: Normal Bowel Sounds, Soft, Non-Tender, No Organomegaly, No Distention, No Abnormal Bruit, No Mass Extremities: Normal Inspection, Normal Range of Motion, Non-Tender, Normal Capillary Refill, No Pedal Edema Neurological: Alert, Oriented, CN II-XII Intact, Normal Cognition, Normal Gait, Normal Reflexes, No Motor/Sensory Deficits Psychiatric: Normal Affect, Normal Mood Skin Exam: Warm, Dry, Intact, Normal Color, No Rash #1 Interpretation EKG Date: 12/09/20 Time: 12:54 Rhythm: NSR Rate (Beats/Min): 68 [place]: Normal P-Wave: Present QRS: Normal ST-T: Normal QT: Normal Course - Vital Signs Last Recorded V/S: Last Vital Signs Temp 98.1 F 12/09/20 12:55 Pulse 68 12/09/20 12:55 Resp 17 12/09/20 14:50 BP 127/80 12/09/20 14:50 Pulse Ox 98 12/09/20 14:50 - Orders/Labs/Meds Orders: Active Orders 24 hr Category Date Time Status EKG 12 Lead [EK] Stat Ther 12/09/20 12:58 Ordered Labs: Laboratory Tests 12/09/20 12/09/20 12/09/20 Range/Units 13:15 13:15 13:15 WBC 6.45 (4.23-9.07) K/mm3 RBC 5.17 (4.63-6.08) M/mm3 Hgb 15.0 (13.7-17.5) gm/dl Hct 44.1 (40.1-51.0) % MCV 85.3 (79.0-92.2) fl MCH 29.0 (25.7-32.2) pg MCHC 34.0 (32.2-35.5) g/dl RDW Std Deviation 38.8 (35.1-43.9) fL Plt Count 282 (163-337) K/mm3 MPV 10.2 (9.4-12.3) fl Neut % (Auto) 52.2 (34.0-67.9) % Lymph % (Auto) 40.0 (21.8-53.1) % [place] % (Auto) 5.6 (5.3-12.2) % Eos % (Auto) 1.2 (0.8-7.0) Baso % (Auto) 0.8 (0.1-1.2) % Neut # (Auto) 3.37 (1.78-5.38) K/mm3 Lymph # (Auto) 2.58 (1.32-3.57) K/mm3 [place] # (Auto) 0.36 (0.30-0.82) K/mm3 Eos # (Auto) 0.08 (0.04-0.54) K/mm3 Baso # (Auto) 0.05 (0.01-0.08) K/mm3 D-Dimer, Quantitative < 0.19 L (0.19-0.50) mg/L Sodium 147 H (136-145) mEq/L Potassium 4.1 (3.5-5.1) mEq/L Chloride 107 (98-107) mEq/L Carbon Dioxide 27 (21-32) mEq/L Anion Gap 17.1 H (5-15) BUN 7 (7-18) mg/dL Creatinine 0.7 (0.7-1.3) mg/dL Est Cr Clr Drug Dosing 177.77 mL/min Estimated GFR (MDRD) > 60 (>60) mL/min BUN/Creatinine Ratio 10.0 L (14-18) Glucose 92 (74-106) mg/dL Calcium 8.9 (8.5-10.1) mg/dL Magnesium (1.8-2.4) mg/dl Total Bilirubin 0.5 (0.2-1.0) mg/dL AST 19 (15-37) U/L ALT 32 (16-63) U/L Alkaline Phosphatase 70 (46-116) U/L Troponin I < 0.017 (0.00-0.056) ng/mL C-Reactive Protein < 0.2 (<1.0) mg/dL Total Protein 7.8 (6.4-8.2) g/dl Albumin 4.3 (3.4-5.0) g/dl Globulin 3.5 gm/dL Albumin/Globulin Ratio 1.2 (1-2) 12/09/20 Range/Units 13:15 WBC (4.23-9.07) K/mm3 RBC (4.63-6.08) M/mm3 Hgb (13.7-17.5) gm/dl Hct (40.1-51.0) % MCV (79.0-92.2) fl MCH (25.7-32.2) pg MCHC (32.2-35.5) g/dl RDW Std Deviation (35.1-43.9) fL Plt Count (163-337) K/mm3 MPV (9.4-12.3) fl Neut % (Auto) (34.0-67.9) % Lymph % (Auto) (21.8-53.1) % [place] % (Auto) (5.3-12.2) % Eos % (Auto) (0.8-7.0) Baso % (Auto) (0.1-1.2) % Neut # (Auto) (1.78-5.38) K/mm3 Lymph # (Auto) (1.32-3.57) K/mm3 [place] # (Auto) (0.30-0.82) K/mm3 Eos # (Auto) (0.04-0.54) K/mm3 Baso # (Auto) (0.01-0.08) K/mm3 D-Dimer, Quantitative (0.19-0.50) mg/L Sodium (136-145) mEq/L Potassium (3.5-5.1) mEq/L Chloride (98-107) mEq/L Carbon Dioxide (21-32) mEq/L Anion Gap (5-15) BUN (7-18) mg/dL Creatinine (0.7-1.3) mg/dL Est Cr Clr Drug Dosing mL/min Estimated GFR (MDRD) (>60) mL/min BUN/Creatinine Ratio (14-18) Glucose (74-106) mg/dL Calcium (8.5-10.1) mg/dL Magnesium 1.8 (1.8-2.4) mg/dl Total Bilirubin (0.2-1.0) mg/dL AST (15-37) U/L ALT (16-63) U/L Alkaline Phosphatase (46-116) U/L Troponin I (0.00-0.056) ng/mL C-Reactive Protein (<1.0) mg/dL Total Protein (6.4-8.2) g/dl Albumin (3.4-5.0) g/dl Globulin gm/dL Albumin/Globulin Ratio (1-2) - Re-Assessments/Exams Free Text/Narrative Re-Assessment/Exam: Patient is a 30-year-old male presenting to the emergency department with complaints of intermittent chest pain this morning as well as episodes of palpitations. Symptoms had resolved at the time of my exam. Patient has a history significant for pericarditis and had a follow-up with his estimation manager, Dr. Siddiqui, last week. Recommendation was for a Holter monitor, however patient declined. Exam is grossly unremarkable. Will do cardiac work-up including CBC, CMP, CRP, magnesium, troponin, D-dimer, EKG, chest x-ray. 12/09/20 14:25 Hematology significant for sodium minimally elevated at 147, anion gap 17.1. Hematology is otherwise unremarkable. Troponin and D-dimer are both negative. EKG shows normal sinus rhythm at 68 with no acute ischemia. Chest x-ray shows no acute abnormalities. He has had no recurrence of chest pain or palpitations while in the ER. We will discharge the patient home with a 48-hour Holter monitor. Recommend that he contact Dr. Siddiqui's office today to let them know of today's occurrences and to schedule follow-up to review the Holter monitor results. Discharge instructions as documented. Departure - Departure Time of Disposition: 14:26 Disposition: Home, Self-Care 01 Condition: Good Clinical Impression: Atypical chest pain, Palpitations Instructions: Nonspecific Chest Pain, Adult, Palpitations Referrals: PCP,None [Primary Care Provider] - Ean Prince DO [Ordering Only Provider] - Forms: ED Department Discharge Additional Instructions: You were seen in the emergency department today for intermittent chest pain at this morning as well as episodes of palpitations. Work-up included blood work, EKG, chest x-ray. Results of your work-up were found to be overall normal. You have been sent home on a 40-hour Holter monitor. Follow the instructions as given to you and return this in 48 hours. Recommend contacting her estimation manager tomorrow morning to let them know of today's occurrences and to set up follow-up to review the Holter monitor results. Return to ER for any new or worsening symptoms of concern. Sepsis Event Note (ED) - Evaluation Sepsis Screening Result: No Definite Risk - Focused Exam Vital Signs: Vital Signs Temp Pulse Resp BP Pulse Ox 12/09/20 14:50 17 127/80 98 12/09/20 12:55 98.1 F 68 16 159/87 H 97 - My Orders Last 24 Hours: My Active Orders 12/09/20 12:58 EKG 12 Lead [EK] Stat - Assessment/Plan Last 24 Hours: My Active Orders 12/09/20 12:58 EKG 12 Lead [EK] Stat
--- NOTE | 2020-12-09 13:54 | CR ---
Chest: PA and lateral views of the chest were obtained. Comparison: Prior chest x-ray of 08/29/17 and 08/17/19. Heart size and mediastinum are normal. Lungs are clear with no acute parenchymal change. Bony structures are unremarkable. Impression: 1. Nothing acute is seen on 2 view chest x-ray. Diagnostic code #1
== END 2020-12-09 14:50 | disposition home or self-care (01) ==
LOC: JD.ED 12:48
DX: R07.89 Other chest pain (principal); R00.2 Palpitations; R06.02 Shortness of breath; E66.9 Obesity, unspecified; Z68.36 Body mass index [BMI] 36.0-36.9, adult
CPT/HCPCS: 36415; 71046; 71046-26; 80053; 83735; 84484; 85025; 85379; 86140; 93005; 93010; 93225; 93226; 99284; 99285-25

== ENCOUNTER 2021-01-29 04:46 | Emergency (ER) | payer BC ==
[2021-01-29] MEDS ORDERED: Sodium Chloride 0.9% 10 ML Syringe FLUSH PRN (05:17)
[2021-01-29] MEDS ORDERED: Ketorolac 15 MG/ML SDV IVPUSH ONE (05:17)
[2021-01-29] MEDS ORDERED: Ondansetron 4 MG/2 ML SDV IVPUSH ONE (05:18)
--- NOTE | 2021-01-29 05:24 | EDM.PDOC ---
<Rasheed Marroquin - Last Filed: 01/29/21 10:42> ED HPI GENERAL MEDICAL PROBLEM - General Chief Complaint: Flank Pain Stated Complaint: LEFT SIDE FLANK PAIN Time Seen by Provider: 01/29/21 05:08 - Related Data Allergies Allergy/AdvReac Type Severity Reaction Status Date / Time No Known Allergies Allergy Verified 01/29/21 04:52 Home Meds: Home Meds Tamsulosin HCl 0.4 mg PO DAILY #7 capsule 01/29/21 [Rx] oxyCODONE HCl/Acetaminophen [Endocet 5-325 Tablet] 1 each PO Q6H PRN #18 tablet 01/29/21 [Rx] Course - Re-Assessments/Exams Free Text/Narrative Re-Assessment/Exam: 01/29/21 10:42 Márquez called back and they have a bed now. He has more pain. I ordered dilaudid 1mg IV. Departure - Departure Time of Disposition: 10:50 Disposition: DC/Tfer to [facility] Clinical Impression: Acute left flank pain, Ureterolithiasis - Discharge Information Prescriptions: oxyCODONE HCl/Acetaminophen [Endocet 5-325 Tablet] 1 each PO Q6H PRN #18 tablet PRN Reason: Severe pain Tamsulosin HCl 0.4 mg PO DAILY #7 capsule Instructions: Kidney Stones Referrals: PCP,None [Primary Care Provider] - Forms: ED Department Discharge Additional Instructions: Return if condition worsens May resume general activity and regular diet as tolerated Strain all urine Continue usual medications May take IBUPROFEN 600 mg every 6 hours as needed for pain/inflammation Take TAMSULOSIN as prescribed, until completed, or stone has passed May take OXYCODONE/ACETAMINOPHEN sparingly for severe pain, 1-2 tablets every 6 hours as needed Follow-up with primary care provider is recommended Follow-up with urology is recommended within 1 week Call [facility] ([phone]) or ([phone]) to arrange urology consultation <Bharathi Flynn - Last Filed: 01/31/21 10:32> ED HPI GENERAL MEDICAL PROBLEM - General Source of Information: Reports: Patient History Limitations: Reports: No Limitations - History of Present Illness INITIAL COMMENTS - FREE TEXT/NARRATIVE: Patient arrived to ED by private vehicle He is accompanied by his Onset of symptoms was 01/24/2021 Developed hematuria and pain in the left lower back/flank area He was seen by outpatient provider and had imaging, thought to be radiography Arrangements were initiated for outpatient CT scan, which is currently pending Pain has persisted since onset, with some variability Lowest pain severity stated as 7/10 Pain was significantly worse this morning, rated 10/10, and associated at that time with nausea and dry heaves Current pain severity is 8/10 He denies acute trauma or injury Denies prior history of similar symptoms Left Flank Pain Score (Numeric/FACES): 8 Past Medical History - Past Health History Medical/Surgical History: Denies Medical/Surgical History HEENT History: Reports: Impaired Vision Cardiovascular History: Reports: Other (See Below) Other Cardiovascular History: chest pain, palpitations, pericarditis Respiratory History: Reports: SOB Gastrointestinal History: Reports: GERD Other Gastrointestinal History: anal fistula, pilonidal cyst, melanosis coli Genitourinary History: Reports: Other (See Below) 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 Musculoskeletal History: Reports: None Neurological History: Reports: None Psychiatric History: Reports: None Endocrine/Metabolic History: Reports: Obesity/BMI 30+ Hematologic History: Reports: None Immunologic History: Reports: None Oncologic (Cancer) History: Reports: None Dermatologic History: Reports: None - Infectious Disease History Infectious Disease History: Reports: Chicken Pox - Past Surgical History Respiratory Surgical History: Reports: None GI Surgical History: Reports: Colonoscopy, EGD, Hernia Repair/Other, Other (See Below) Other GI Surgeries/Procedures: pilonidal cystectomy and anal fistulotomy Social & Family History - Family History Family Medical History: No Pertinent Family History - Tobacco Use Tobacco Use Status *Q: Never Tobacco User - Caffeine Use Caffeine Use: Reports: Tea - Recreational Drug Use Recreational Drug Use: No ED ROS GENERAL - Review of Systems Review Of Systems: See Below Free Text/Narrative/Comment: Constitutional - no fever Cardiovascular - no chest pain Respiratory - no shortness of breath; no cough Gastrointestinal - no abdominal pain; nausea; no vomiting; no diarrhea; left flank pain Genitourinary - no dysuria; hematuria Musculoskeletal - no neck pain; back pain; no extremity injury Neurological - no headache; no speech disturbance; no weakness ED EXAM, GENERAL - Physical Exam Exam: See Below Free Text/Narrative:: Constitutional - awake; alert; mild to moderate pain distress Head - no facial swelling or weakness Eyes - extra ocular motion intact; conjunctiva normal ENT - no nasal deformity; no epistaxis; normal phonation Respiratory - normal respiratory effort; no crackles or wheezing; no stridor Cardiovascular - regular rhythm; normal rate; S1; S2; grade 1/6 systolic murmur GI/Abdomen - normal bowel sounds; soft; no tenderness; no rebound; no guarding; no mass; pain localized above left posterolateral iliac crest Musculoskeletal - grossly normal strength and motion; no swelling or deformity Skin - warm; dry Neurologic - normal speech; no weakness; gait intact Psychiatric - normal mood and affect; memory and attention normal Course - Vital Signs Text/Narrative:: . Considered etiologies included: Hematuria, flank pain, UTI, renal colic, ureterolithiasis Symptoms and examination were discussed Investigations were initiated Empiric treatment was initiated with ondansetron and ketorolac At reevaluation, there was mild improvement in pain severity to 6/10 He remained visibly uncomfortable Results were discussed, with findings for proximal ureteral calculus Additional analgesia was provided with morphine 4 mg IV At reevaluation he seemed comfortable, and outpatient treatment and follow-up were reviewed for anticipated discharge Prior to discharge from ED, he had recurrence of severe pain He was given an additional dose of morphine 4 mg IV with mild and transient improvement In consideration of his modest and transient response to analgesic treatment, and limited progress of stone over duration of symptoms, decision was made for transfer 0837 - Case was discussed with Dr. Chambers (urologist at ) who deferred to hospitalist 0845 - Case was discussed with Dr. Cheung (hospitalist at ) who accepted patient for transfer Further analgesia was provided with IV fentanyl Care was endorsed to Dr Marroquin pending bed assignment for transfer Last Recorded V/S: Last Vital Signs Temp 36.0 C L 01/29/21 10:35 Pulse 52 L 01/29/21 10:35 Resp 16 01/29/21 10:35 BP 137/98 H 01/29/21 10:35 Pulse Ox 97 01/29/21 10:35 - Orders/Labs/Meds Labs: Laboratory Tests 01/29/21 01/29/21 01/29/21 Range/Units 04:55 05:08 05:08 WBC 6.46 (4.23-9.07) K/mm3 RBC 5.24 (4.63-6.08) M/mm3 Hgb 15.2 (13.7-17.5) gm/dl Hct 43.3 (40.1-51.0) % MCV 82.6 (79.0-92.2) fl MCH 29.0 (25.7-32.2) pg MCHC 35.1 (32.2-35.5) g/dl RDW Std Deviation 38.7 (35.1-43.9) fL Plt Count 268 (163-337) K/mm3 MPV 10.3 (9.4-12.3) fl Neut % (Auto) 54.7 (34.0-67.9) % Lymph % (Auto) 34.7 (21.8-53.1) % [place] % (Auto) 7.6 (5.3-12.2) % Eos % (Auto) 2.3 (0.8-7.0) Baso % (Auto) 0.5 (0.1-1.2) % Neut # (Auto) 3.54 (1.78-5.38) K/mm3 Lymph # (Auto) 2.24 (1.32-3.57) K/mm3 [place] # (Auto) 0.49 (0.30-0.82) K/mm3 Eos # (Auto) 0.15 (0.04-0.54) K/mm3 Baso # (Auto) 0.03 (0.01-0.08) K/mm3 Sodium 146 H (136-145) mEq/L Potassium 3.9 (3.5-5.1) mEq/L Chloride 107 (98-107) mEq/L Carbon Dioxide 26 (21-32) mEq/L Anion Gap 16.9 H (5-15) BUN 13 (7-18) mg/dL Creatinine 0.9 (0.7-1.3) mg/dL Est Cr Clr Drug Dosing 138.27 mL/min Estimated GFR (MDRD) > 60 (>60) mL/min BUN/Creatinine Ratio 14.4 (14-18) Glucose 119 H (74-106) mg/dL Calcium 9.0 (8.5-10.1) mg/dL Total Bilirubin 0.7 (0.2-1.0) mg/dL AST 14 L (15-37) U/L ALT 21 (16-63) U/L Alkaline Phosphatase 76 (46-116) U/L Total Protein 7.5 (6.4-8.2) g/dl Albumin 4.2 (3.4-5.0) g/dl Globulin 3.3 gm/dL Albumin/Globulin Ratio 1.3 (1-2) Urine Color Yellow (Yellow) Urine Appearance Cloudy H (Clear) Urine pH 6.0 (5.0-8.0) Ur Specific [place] > or = 1.030 (1.005-1.030) Urine Protein 1+ H (Negative) Urine Glucose (UA) Negative (Negative) Urine Ketones Negative (Negative) Urine Occult Blood 3+ H (Negative) Urine Nitrite Negative (Negative) Urine Bilirubin Negative (Negative) Urine Urobilinogen 1.0 (0.2-1.0) Ur Leukocyte Esterase Negative (Negative) Urine RBC 75-100 H (0-5) /hpf Urine WBC 0-5 (0-5) /hpf Ur Squamous Epith Cells 0-5 (0-5) /hpf Calcium Oxalate Crystal Few H (NONE) Urine Bacteria Few (FEW) /hpf Urine Mucus Moderate H (FEW) /hpf Meds: Medications Discontinued Medications Generic Name Dose Route Start Last Admin Trade Name Anastacio PRSera Reason Stop Dose Admin Fentanyl 50 mcg 01/29/21 09:00 01/29/21 09:21 Fentanyl 100 Mcg/2 Ml Sdv IVPUSH 01/29/21 09:01 50 mcg ONETIME ONE Administration Hydromorphone HCl 1 mg 01/29/21 10:41 01/29/21 10:46 Hydromorphone 1 Mg/Ml Syringe IVPUSH 01/29/21 10:42 1 mg ONETIME ONE Administration Lactated Ringer's 1,000 mls @ 170 mls/hr 01/29/21 09:00 01/29/21 09:23 Ringers, Lactated IV 170 mls/hr ASDIRECTED MARTHA Administration Ketorolac Tromethamine 15 mg 01/29/21 05:17 01/29/21 05:32 Ketorolac 15 Mg/Ml Sdv IVPUSH 01/29/21 05:18 15 mg ONETIME ONE Administration Morphine Sulfate 4 mg 01/29/21 06:35 01/29/21 06:55 Morphine 4 Mg/Ml Syringe IVPUSH 01/29/21 06:36 4 mg ONETIME ONE Administration Morphine Sulfate 4 mg 01/29/21 08:06 01/29/21 08:35 Morphine 4 Mg/Ml Syringe IVPUSH 01/29/21 08:07 Not Given ONETIME ONE Morphine Sulfate Confirm 01/29/21 08:17 01/29/21 08:35 Morphine 10 Mg/Ml Sdv Administered 01/29/21 08:18 Not Given Dose 10 mg .ROUTE .STK-MED ONE Morphine Sulfate 4 mg 01/29/21 08:30 01/29/21 08:20 Morphine 10 Mg/Ml Sdv IV 01/29/21 08:31 4 mg ONETIME ONE Administration Ondansetron HCl 4 mg 01/29/21 05:18 01/29/21 05:32 Ondansetron 4 Mg/2 Ml Sdv IVPUSH 01/29/21 05:19 4 mg ONETIME ONE Administration Sodium Chloride 10 ml 01/29/21 05:17 01/29/21 05:32 Sodium Chloride 0.9% 10 Ml Syringe FLUSH 10 ml ASDIRECTED PRN Administration Keep Vein Open - Radiology Interpretation Free Text/Narrative:: CT abdomen/pelvis, noncontrast, preliminary radiology report: 1. Mildly obstructing 3 mm proximal left ureteral calculus 2. Right nephrolithiasis CT abdomen/pelvis, noncontrast, final radiologist interpretation: 1. Obstructing calculus within the proximal left ureter measuring between 4 and 5 mm. This causes adjacent inflammatory change around the left ureter compatible with fairly high-grade obstruction. 2. 2 nonobstructing stones within the right lower right kidney 3. Other nonacute findings as described above. Departure - Departure Condition: Good Sepsis Event Note (ED) - Evaluation Sepsis Screening Result: No Definite Risk
[2021-01-29] MEDS ORDERED: Morphine 4 MG/ML Syringe IVPUSH ONE ×2 (06:35→08:06)
--- NOTE | 2021-01-29 07:09 | CT ---
CT abdomen and pelvis Technique: Multiple axial sections were obtained from below the dome of the diaphragm inferiorly through the pubic symphysis. Intravenous and oral contrast was not utilized. Study has been performed as a pulmonary angiogram protocol. Comparison: Prior abdominal x-ray 08/29/19. Findings: Two calcifications are seen within the lower right kidney compatible with nonobstructing calculi. Left kidney shows no abnormal calcifications within the renal parenchyma. Left-sided collecting system and proximal left ureter are dilated. Left-sided findings are caused by an obstructing ureteral stone measuring somewhere between 4 and 5 mm. Inflammatory change is noted around the proximal left ureter compatible with fairly high-grade obstruction. No other abnormal ureteral calcifications are seen. Several small calcified granulomas are noted posteriorly within the right lobe of the liver. Spleen size is normal. Numerous gallstones are seen within the gallbladder. No adrenal abnormality is appreciated. Pancreas shows no discrete abnormality. Small amount of accessory splenic tissue is noted medial to the spleen. Abdominal aorta shows no aneurysm. No retroperitoneal adenopathy or mesenteric abnormalities are seen. Appendix is seen and appears to be normal in size. No pelvic mass or adenopathy is noted. Bone window settings were reviewed which show no acute osseous finding. Impression: 1. Obstructing calculus within the proximal left ureter measuring between 4 and 5 mm. This causes adjacent inflammatory change around the left ureter compatible with fairly high-grade obstruction. 2. Two nonobstructing stones within the lower right kidney. 3. Other nonacute findings as described above. Diagnostic code #3 I agree with preliminary report from [facility], finalized on 01/29/21, 7:23 AM CDT, code 1
[2021-01-29] MEDS ORDERED: Morphine 10 MG/ML SDV ONE (08:17)
[2021-01-29] MEDS ORDERED: Morphine 10 MG/ML SDV IV ONE (08:30)
[2021-01-29] MEDS ORDERED: fentaNYL 100 MCG/2 ML SDV IVPUSH ONE (09:00)
[2021-01-29] MEDS ORDERED: Lactated Ringers 1,000 ML IV SCH (09:00)
[2021-01-29] MEDS ORDERED: HYDROmorphone 1 MG/ML Syringe IVPUSH ONE (10:41)
== END 2021-01-29 10:54 ==
LOC: JD.ED 04:46
DX: N20.1 Calculus of ureter (principal); K21.9 Gastro-esophageal reflux disease without esophagitis; E66.9 Obesity, unspecified; Z68.35 Body mass index [BMI] 35.0-35.9, adult; Z79.899 Other long term (current) drug therapy
CPT/HCPCS: 36415; 74176; 80053; 81001; 85025; 96374; 96375; 96376; 99285; J1170; J1885; J2270; J2405; J3010; J7120

== ENCOUNTER 2021-02-02 16:54 | Inpatient (IN) | payer BC ==
[2021-02-02] MEDS ORDERED: Sodium Chloride 0.9% 10 ML Syringe FLUSH PRN (17:41)
[2021-02-02] MEDS ORDERED: LORazepam 2 MG/ML SDV IVPUSH ONE (17:42)
[2021-02-02] MEDS ORDERED: HYDROmorphone 0.5 MG/0.5 ML Syringe IVPUSH ONE (17:42)
--- NOTE | 2021-02-02 18:03 | EDM.PDOC ---
ED HPI GENERAL MEDICAL PROBLEM - General Chief Complaint: Flank Pain Stated Complaint: KIDNEY PAIN Time Seen by Provider: 02/02/21 17:16 Source of Information: Reports: Patient, RN Notes Reviewed - History of Present Illness INITIAL COMMENTS - FREE TEXT/NARRATIVE: 30 yr old male presents to ED with severe R sided back and flank pain that radiates to R groin. He was diagnosed with L 4 to 5 mm proximal ureter obstruction stone at this ED 4 days ago. Due to severity of pain over multiple day duration he was transferred to [facility] for Urology intervention. He states the Urologist accidentally stented the R side (wrong side), 3 days ago, than upon realizing mistake stented the L side. He was kept in the hospital yesterday, discharged home this morning feeling better at time of discharge. He started having more pain even on the way home that has worsened this afternoon. He has taken 2 percocet this afternoon, last percocet only 1 hr ago, pain still about an 8, only "slightly improved" from before taking the last percocet. No fever, chills, nausea or vomiting. Right Flank Pain Score (Numeric/FACES): 8 - Related Data Allergies Allergy/AdvReac Type Severity Reaction Status Date / Time No Known Allergies Allergy Verified 01/29/21 04:52 Home Meds: Home Meds oxyCODONE HCl/Acetaminophen [Endocet 5-325 Tablet] 1 each PO Q6H PRN #18 tablet 01/29/21 [Rx] Levofloxacin 500 mg PO DAILY 02/02/21 [History] Past Medical History - Past Health History Medical/Surgical History: Denies Medical/Surgical History HEENT History: Reports: Impaired Vision Cardiovascular History: Reports: Other (See Below) Other Cardiovascular History: chest pain, palpitations, pericarditis Respiratory History: Reports: SOB Gastrointestinal History: Reports: GERD Other Gastrointestinal History: anal fistula, pilonidal cyst, melanosis coli Genitourinary History: Reports: Renal Calculus, Other (See Below) Other Genitourinary History: hematuria [employer] History: Reports: None Musculoskeletal History: Reports: None Neurological History: Reports: None Psychiatric History: Reports: None Endocrine/Metabolic History: Reports: Obesity/BMI 30+ Hematologic History: Reports: None Immunologic History: Reports: None Oncologic (Cancer) History: Reports: None Dermatologic History: Reports: None - Infectious Disease History Infectious Disease History: Reports: Chicken Pox - Past Surgical History Head Surgeries/Procedures: Reports: None HEENT Surgical History: Reports: None Cardiovascular Surgical History: Reports: None Respiratory Surgical History: Reports: None GI Surgical History: Reports: Colonoscopy, EGD, Hernia Repair/Other, Other (See Below) Other GI Surgeries/Procedures: pilonidal cystectomy and anal fistulotomy Male Surgical History: Reports: None, Lithotripsy ([facility]) Endocrine Surgical History: Reports: None Neurological Surgical History: Reports: None Musculoskeletal Surgical History: Reports: None Oncologic Surgical History: Reports: None Dermatological Surgical History: Reports: None Social & Family History - Family History Family Medical History: No Pertinent Family History - Tobacco Use Tobacco Use Status *Q: Never Tobacco User - Caffeine Use Caffeine Use: Reports: Tea - Recreational Drug Use Recreational Drug Use: No ED ROS GENERAL - Review of Systems Review Of Systems: See Below ED EXAM, RENAL/ - Physical Exam Exam: See Below General Appearance: Alert, Moderate Distress Head: Atraumatic Neck: Supple Respiratory/Chest: No Respiratory Distress, Lungs Clear, Normal Breath Sounds Cardiovascular: Regular Rate, Rhythm GI/Abdominal: Soft, Non-Tender Back Exam: CVA Tenderness (R) Extremities: Normal Inspection. No: Pedal Edema, Leg Pain Neurological: Alert, Oriented, No Motor/Sensory Deficits Skin Exam: Warm, Dry, Normal Color, No Rash Course - Vital Signs Last Recorded V/S: Last Vital Signs Temp 96.9 F 02/02/21 17:21 Pulse 69 02/02/21 17:21 Resp 20 02/02/21 17:21 BP 135/86 02/02/21 17:21 Pulse Ox 100 02/02/21 17:21 - Orders/Labs/Meds Orders: Active Orders 24 hr Category Date Time Status Peripheral IV Care [RC] . DIRECTED Care 02/02/21 17:42 Active CULTURE URINE [RM] Stat Lab 02/02/21 17:25 Received Sodium Chloride 0.9% [Saline Flush] Med 02/02/21 17:41 Active 10 ml FLUSH ASDIRECTED PRN Peripheral IV Insertion Adult [OM.PC] Stat Oth 02/02/21 17:41 Ordered Medication Orders Sodium Chloride (Sodium Chloride 0.9% 10 Ml Syringe) 10 ml FLUSH ASDIRECTED PRN PRN Reason: Keep Vein Open Last Admin: 02/02/21 17:52 Dose: 10 ml Documented by: SANDI Labs: Laboratory Tests 02/02/21 02/02/21 02/02/21 Range/Units 17:20 17:20 17:25 WBC 10.07 H (4.23-9.07) K/mm3 RBC 4.77 (4.63-6.08) M/mm3 Hgb 14.0 (13.7-17.5) gm/dl Hct 39.2 L (40.1-51.0) % MCV 82.2 (79.0-92.2) fl MCH 29.4 (25.7-32.2) pg MCHC 35.7 H (32.2-35.5) g/dl RDW Std Deviation 37.1 (35.1-43.9) fL Plt Count 270 (163-337) K/mm3 MPV 10.5 (9.4-12.3) fl Neut % (Auto) 74.8 H (34.0-67.9) % Lymph % (Auto) 17.1 L (21.8-53.1) % [place] % (Auto) 7.2 (5.3-12.2) % Eos % (Auto) 0.6 L (0.8-7.0) Baso % (Auto) 0.2 (0.1-1.2) % Neut # (Auto) 7.53 H (1.78-5.38) K/mm3 Lymph # (Auto) 1.72 (1.32-3.57) K/mm3 [place] # (Auto) 0.73 (0.30-0.82) K/mm3 Eos # (Auto) 0.06 (0.04-0.54) K/mm3 Baso # (Auto) 0.02 (0.01-0.08) K/mm3 Manual Slide Review Sodium 142 (136-145) mEq/L Potassium 3.6 (3.5-5.1) mEq/L Chloride 104 (98-107) mEq/L Carbon Dioxide 23 (21-32) mEq/L Anion Gap 18.6 H (5-15) BUN 19 H (7-18) mg/dL Creatinine 1.2 (0.7-1.3) mg/dL Est Cr Clr Drug Dosing 100.80 mL/min Estimated GFR (MDRD) > 60 (>60) mL/min BUN/Creatinine Ratio 15.8 (14-18) Glucose 101 (74-106) mg/dL Calcium 8.6 (8.5-10.1) mg/dL Total Bilirubin 1.2 H (0.2-1.0) mg/dL AST 9 L (15-37) U/L ALT 15 L (16-63) U/L Alkaline Phosphatase 70 (46-116) U/L Total Protein 7.0 (6.4-8.2) g/dl Albumin 3.7 (3.4-5.0) g/dl Globulin 3.3 gm/dL Albumin/Globulin Ratio 1.1 (1-2) Urine Color Red H (Yellow) Urine Appearance Cloudy H (Clear) Urine pH 6.5 (5.0-8.0) Ur Specific [place] 1.025 (1.005-1.030) Urine Protein 3+ H (Negative) Urine Glucose (UA) Negative (Negative) Urine Ketones 1+ H (Negative) Urine Occult Blood 3+ H (Negative) Urine Nitrite Positive H (Negative) Urine Bilirubin 1+ H (Negative) Urine Urobilinogen 4.0 H (0.2-1.0) Ur Leukocyte Esterase 1+ H (Negative) Urine RBC >100 H (0-5) /hpf Urine WBC 10-20 H (0-5) /hpf Ur Squamous Epith Cells 0-5 (0-5) /hpf Urine Bacteria Moderate H (FEW) /hpf Urine Mucus Few (FEW) /hpf Meds: Medications Generic Name Dose Route Start Last Admin Trade Name Anastacio PRN Reason Stop Dose Admin Sodium Chloride 10 ml 02/02/21 17:41 02/02/21 17:52 Sodium Chloride 0.9% 10 Ml Syringe FLUSH 10 ml ASDIRECTED PRN Administration Keep Vein Open Discontinued Medications Generic Name Dose Route Start Last Admin Trade Name Anastacio PRN Reason Stop Dose Admin Hydromorphone HCl 0.5 mg 02/02/21 17:42 02/02/21 17:52 Hydromorphone 0.5 Mg/0.5 Ml Syringe IVPUSH 02/02/21 17:43 0.5 mg ONETIME ONE Administration Ceftriaxone Sodium 2 gm/ 100 mls @ 200 mls/hr 02/02/21 19:12 02/02/21 19:29 Sodium Chloride IV 02/02/21 19:41 200 mls/hr ONETIME ONE Administration Lorazepam 0.5 mg 02/02/21 17:42 02/02/21 17:51 Lorazepam 2 Mg/Ml Sdv IVPUSH 02/02/21 17:43 0.5 mg ONETIME ONE Administration - Re-Assessments/Exams Free Text/Narrative Re-Assessment/Exam: 02/02/21 19:44 WBC 10,000. Non[address] CT does show dilitation of the collecting system and renal pelvis R kidney. There is inflamatory change around the R ureter, there is some free fluid in the pelvis. See Radiology report for details. Ua is nitrite and leukocyte pos, 3 + RBC, 10-20 WBC/HPF, Moderate bacteria, UC ordered. I have discussed this with Dr Crane, Urologist security incident response engineer for [facility]. He states the edema/inflamation of the R ureter is not unexpected. This will t ypically go down, improve over the next day or so. If not the treatment is to place a stent back up the R ureter. He [facility]. If better in the morning he can go home. If not better he will accept the patient in transfer back to [facility] and he will admit the patient for stent placement. I have discussed this with Dr Car, our Hospitalist security incident response engineer. He is agreeable to the admission for pain management. He has asked I inform patient and his , make sure they know and understand the admission is for pain management only, that he is not a Urologist and cannnot be expected to make Urology type decisions or treatments. I have discussed this with patient and his . They would like to be admitted here [facility], give this a chance to get better on its own without further intervention if possible. He will be admitted med surg. Obsv. status. Departure - Departure Time of Disposition: 19:35 Disposition: Refer to Observation Condition: Fair Clinical Impression: Ureteric colic, UTI, Urinary tract infectious disease - Discharge Information Referrals: PCP,None [Primary Care Provider] - Forms: ED Department Discharge Sepsis Event Note (ED) - Evaluation Sepsis Screening Result: No Definite Risk - Focused Exam Vital Signs: Vital Signs Temp Pulse Resp BP Pulse Ox 02/02/21 17:21 96.9 F 69 20 135/86 100 - My Orders Last 24 Hours: My Active Orders 02/02/21 17:25 CULTURE URINE [RM] Stat 02/02/21 17:41 Sodium Chloride 0.9% [Saline Flush] 10 ml FLUSH ASDIRECTED PRN Peripheral IV Insertion Adult [OM.PC] Stat 02/02/21 17:42 Peripheral IV Care [RC] . DIRECTED - Assessment/Plan Last 24 Hours: My Active Orders 02/02/21 17:25 CULTURE URINE [RM] Stat 02/02/21 17:41 Sodium Chloride 0.9% [Saline Flush] 10 ml FLUSH ASDIRECTED PRN Peripheral IV Insertion Adult [OM.PC] Stat 02/02/21 17:42 Peripheral IV Care [RC] . DIRECTED
--- NOTE | 2021-02-02 18:45 | CT ---
CT abdomen and pelvis Technique: Multiple axial sections were obtained from above the dome of the diaphragm inferiorly through the pubic symphysis. Reconstructed coronal and sagittal images were obtained. Comparison: Prior CT abdomen and pelvis study of 01/29/21. Findings: Right kidney shows 2 small nonobstructing calculi. Left kidney shows a single small nonobstructing calculus. Left kidney shows a left ureteral stent with proximal end located within the left renal pelvis and distal end lying within the bladder. Right kidney shows dilation of the collecting system and renal pelvis. There is inflammatory change being seen around the right ureter. There are no definite obstructing calculi within the right ureter. No bladder calculi are seen. Visualized lung bases show nothing acute. Noncontrast appearance of the liver shows 2 small calcifications within the posterior right lobe which were felt compatible with small granulomas. Spleen size is normal. Adrenal glands show no nodule. Pancreas shows no discrete abnormality. Numerous gallstones are seen within the gallbladder. Abdominal aorta shows no aneurysm. No retroperitoneal adenopathy or mesenteric abnormalities are seen. No pelvic mass or adenopathy is noted. Pelvis shows free fluid which is increased over physiologic fluid. Bone window settings were reviewed which show no acute osseous finding. Impression: 1. Dilated right kidney collecting system and renal pelvis. Mild inflammatory change is seen around the right ureter although ureter is not dilated. These findings could represent recently passed stone as well as representing changes of UTI and possible early renal infection. Please correlate with the patient's symptoms. 2. Left ureteral stent which is satisfactory located. 3. Nonobstructing bilateral renal calculi are seen. 4. Free fluid within the pelvis which is slightly more than usually expected for being physiologic. 5. Other findings as noted above which are stable. Diagnostic code #3
[2021-02-02] MEDS ORDERED: cefTRIAXone 2 GM in Sodium Chloride 0.9% 100 ML IV ONE (19:12)
[2021-02-02] MEDS ORDERED: Acetaminophen 325 MG Tab PO PRN (20:32)
[2021-02-02] MEDS ORDERED: Albuterol/Ipratropium 3.0-0.5 MG/3 ML Neb Soln NEB PRN (20:32)
[2021-02-02] MEDS ORDERED: LORazepam 2 MG/ML SDV IV PRN (20:32)
[2021-02-02] MEDS ORDERED: Promethazine 12.5 MG in Sodium Chloride 0.9% 50 ML IV PRN (20:32)
[2021-02-02] MEDS ORDERED: hydrALAZINE 20 MG/ML SDV IVPUSH PRN (20:39)
--- NOTE | 2021-02-02 20:45 | PCM.HP.2 ---
H&P History of Present Illness - General Date of Service: 02/02/21 Admit Problem/Dx: Admission Diagnosis/Problem Admission Diagnosis/Problem Flank pain Source of Information: Patient, Other (chart) - History of Present Illness Initial Comments - Free Text/Narative: Patient is a 30-year-old male with a history of nephrolithiasis status post stenting who presented to the ER due to right flank pain for 3 days. The pain is constant, sharp in nature and a 8 out of 10 in severity associated with nause a and mild dizziness, radiating to inguinal area. Patient also reports that he has been having pink urine (gross hematuria) for about 9 days. he had stents placed bilaterally by urologist in [place] on Wednesday (3 days ago) but the stent was removed from right side. Otherwise the patient is fine. Denies headache, chest pain, shortness of breath, diarrhea, fever, or chills. Patient has never had a similar problems before. In the ER, CT abdomen showed dilated the right kidney collecting system at the renal pelvis. Mild inflammatory change is seen around the right ureter; left ureteral stent which is satisfactory located; nonobstructing bilateral renal calculi are seen. Patient was admitted to the hospital for pain control and antibiotics. Right Flank Pain Score (Numeric/FACES): 8 - Related Data Allergies/Adverse Reactions: Allergies Allergy/AdvReac Type Severity Reaction Status Date / Time No Known Allergies Allergy Verified 02/02/21 21:17 Home Medications: Home Meds oxyCODONE HCl/Acetaminophen [Endocet 5-325 Tablet] 1 each PO Q6H PRN #18 tablet 01/29/21 [Rx] Levofloxacin 500 mg PO DAILY 02/02/21 [History] Past Medical History - Past Health History Medical/Surgical History: Denies Medical/Surgical History HEENT History: Reports: Impaired Vision Cardiovascular History: Reports: Other (See Below) Other Cardiovascular History: chest pain, palpitations, pericarditis Respiratory History: Reports: SOB Gastrointestinal History: Reports: GERD Other Gastrointestinal History: anal fistula, pilonidal cyst, melanosis coli Genitourinary History: Reports: Renal Calculus, Other (See Below) Other Genitourinary History: hematuria SOFTBALL UMPIRE History: Reports: None Musculoskeletal History: Reports: None Neurological History: Reports: None Psychiatric History: Reports: None Endocrine/Metabolic History: Reports: Obesity/BMI 30+ Hematologic History: Reports: None Immunologic History: Reports: None Oncologic (Cancer) History: Reports: None Dermatologic History: Reports: None - Infectious Disease History Infectious Disease History: Reports: Chicken Pox - Past Surgical History Head Surgeries/Procedures: Reports: None HEENT Surgical History: Reports: None Cardiovascular Surgical History: Reports: None Respiratory Surgical History: Reports: None GI Surgical History: Reports: Colonoscopy, EGD, Hernia Repair/Other, Other (See Below) Other GI Surgeries/Procedures: pilonidal cystectomy and anal fistulotomy Male Surgical History: Reports: None, Lithotripsy ([facility]) Endocrine Surgical History: Reports: None Neurological Surgical History: Reports: None Musculoskeletal Surgical History: Reports: None Oncologic Surgical History: Reports: None Dermatological Surgical History: Reports: None Social & Family History - Family History Family Medical History: No Pertinent Family History (Denies genetic diseases in family) - Tobacco Use Tobacco Use Status *Q: Never Tobacco User - Caffeine Use Caffeine Use: Reports: Tea - Recreational Drug Use Recreational Drug Use: No H&P Review of Systems - Review of Systems: Review Of Systems: See Below General: Reports: No Symptoms HEENT: Reports: No Symptoms Pulmonary: Reports: No Symptoms Cardiovascular: Reports: No Symptoms Gastrointestinal: Reports: Nausea Genitourinary: Reports: Hematuria, Flank Pain Musculoskeletal: Reports: No Symptoms Skin: Reports: No Symptoms Psychiatric: Reports: No Symptoms Neurological: Reports: No Symptoms Hematologic/Lymphatic: Reports: No Symptoms Immunologic: Reports: No Symptoms Exam - Exam Exam: See Below - Vital Signs Vital Signs: Last Vital Signs Temp 36.1 C 02/02/21 17:21 Pulse 69 02/02/21 17:21 Resp 20 02/02/21 17:21 BP 135/86 02/02/21 17:21 Pulse Ox 100 02/02/21 17:21 Weight: 125.277 kg - Exam General: Alert, Oriented, Cooperative, Moderate Distress (Due to pain) HEENT: Conjunctiva Clear, EOMI, Pupils Equal, Pupils Reactive Neck: Supple, Trachea Midline, Full Range of Motion Lungs: Clear to Auscultation, Normal Respiratory Effort Cardiovascular: Regular Rate, Regular Rhythm, Normal S1, Normal S2 GI/Abdominal Exam: Normal Bowel Sounds, Soft, Non-Tender, No Organomegaly (Male) Exam: Deferred Rectal (Males) Exam: Deferred Back Exam: CVA Tenderness (R) Extremities: Normal Inspection, Normal Range of Motion, Non-Tender, No Pedal Edema Skin: Warm, Dry, Intact Neurological: Cranial Nerves Intact, Reflexes Equal Bilateral, Strength Equal Bilateral, Normal Speech, Normal Tone, Sensation Intact Neuro Extensive - Mental Status: Alert, Oriented x3, Normal Mood/Affect Neuro Extensive - Motor, Sensory, Reflexes: CN II-XII Intact Psychiatric: Normal Mood - Patient Data Lab Results Last 24 hrs: Laboratory Results - last 24 hr 02/02/21 02/02/21 02/02/21 Range/Units 17:20 17:20 17:25 WBC 10.07 H (4.23-9.07) K/mm3 RBC 4.77 (4.63-6.08) M/mm3 Hgb 14.0 (13.7-17.5) gm/dl Hct 39.2 L (40.1-51.0) % MCV 82.2 (79.0-92.2) fl MCH 29.4 (25.7-32.2) pg MCHC 35.7 H (32.2-35.5) g/dl RDW Std Deviation 37.1 (35.1-43.9) fL Plt Count 270 (163-337) K/mm3 MPV 10.5 (9.4-12.3) fl Neut % (Auto) 74.8 H (34.0-67.9) % Lymph % (Auto) 17.1 L (21.8-53.1) % Colbert % (Auto) 7.2 (5.3-12.2) % Eos % (Auto) 0.6 L (0.8-7.0) Baso % (Auto) 0.2 (0.1-1.2) % Neut # (Auto) 7.53 H (1.78-5.38) K/mm3 Lymph # (Auto) 1.72 (1.32-3.57) K/mm3 Colbert # (Auto) 0.73 (0.30-0.82) K/mm3 Eos # (Auto) 0.06 (0.04-0.54) K/mm3 Baso # (Auto) 0.02 (0.01-0.08) K/mm3 Manual Slide Review Sodium 142 (136-145) mEq/L Potassium 3.6 (3.5-5.1) mEq/L Chloride 104 (98-107) mEq/L Carbon Dioxide 23 (21-32) mEq/L Anion Gap 18.6 H (5-15) BUN 19 H (7-18) mg/dL Creatinine 1.2 (0.7-1.3) mg/dL Est Cr Clr Drug Dosing 100.80 mL/min Estimated GFR (MDRD) > 60 (>60) mL/min BUN/Creatinine Ratio 15.8 (14-18) Glucose 101 (74-106) mg/dL Calcium 8.6 (8.5-10.1) mg/dL Total Bilirubin 1.2 H (0.2-1.0) mg/dL AST 9 L (15-37) U/L ALT 15 L (16-63) U/L Alkaline Phosphatase 70 (46-116) U/L Total Protein 7.0 (6.4-8.2) g/dl Albumin 3.7 (3.4-5.0) g/dl Globulin 3.3 gm/dL Albumin/Globulin Ratio 1.1 (1-2) Urine Color Red H (Yellow) Urine Appearance Cloudy H (Clear) Urine pH 6.5 (5.0-8.0) Ur Specific [place] 1.025 (1.005-1.030) Urine Protein 3+ H (Negative) Urine Glucose (UA) Negative (Negative) Urine Ketones 1+ H (Negative) Urine Occult Blood 3+ H (Negative) Urine Nitrite Positive H (Negative) Urine Bilirubin 1+ H (Negative) Urine Urobilinogen 4.0 H (0.2-1.0) Ur Leukocyte Esterase 1+ H (Negative) Urine RBC >100 H (0-5) /hpf Urine WBC 10-20 H (0-5) /hpf Ur Squamous Epith Cells 0-5 (0-5) /hpf Urine Bacteria Moderate H (FEW) /hpf Urine Mucus Few (FEW) /hpf Result Diagrams: 02/03/21 06:03 02/03/21 06:03 Sepsis Event Note - Evaluation Sepsis Screening Result: No Definite Risk - Focused Exam Vital Signs: Vital Signs Temp Pulse Resp BP Pulse Ox 02/02/21 17:21 36.1 C 69 20 135/86 100 Problem List Initiated/Reviewed/Updated: Yes Orders Last 24hrs: Active Orders 24 hr Category Date Time Status Admission Status [Patient Status] [ADT] Routine ADT 02/02/21 20:02 Active Ambulate [RC] ASDIRECTED Care 02/02/21 20:32 Ordered Antiembolic Devices [RC] PER UNIT ROUTINE Care 02/02/21 20:34 Ordered Intake and Output [RC] QSHIFT Care 02/02/21 20:33 Ordered Oxygen Therapy [RC] PRN Care 02/02/21 20:32 Ordered Peripheral IV Care [RC] . DIRECTED Care 02/02/21 17:42 Active RT Aerosol Therapy [RC] ASDIRECTED Care 02/02/21 20:36 Ordered VTE/DVT Education [RC] PER UNIT ROUTINE Care 02/02/21 20:32 Ordered Vital Signs [RC] Q4H Care 02/02/21 20:32 Ordered Clear Liquid Diet [DIET] Diet 02/02/21 Breakfast Ordered CBC WITH AUTO DIFF [HEME] DAILY Lab 02/03/21 05:00 Ordered CBC WITH AUTO DIFF [HEME] DAILY Lab 02/04/21 05:00 Ordered CBC WITH AUTO DIFF [HEME] DAILY Lab 02/05/21 05:00 Ordered CBC WITH AUTO DIFF [HEME] DAILY Lab 02/06/21 05:00 Ordered COMPREHENSIVE METABOLIC PN,CMP [CHEM] DAILY Lab 02/03/21 05:00 Ordered COMPREHENSIVE METABOLIC PN,CMP [CHEM] DAILY Lab 02/04/21 05:00 Ordered COMPREHENSIVE METABOLIC PN,CMP [CHEM] DAILY Lab 02/05/21 05:00 Ordered COMPREHENSIVE METABOLIC PN,CMP [CHEM] DAILY Lab 02/06/21 05:00 Ordered CULTURE BLOOD [BC] Stat Lab 02/02/21 20:38 Ordered CULTURE BLOOD [BC] Stat Lab 02/02/21 20:38 Ordered CULTURE URINE [RM] Stat Lab 02/02/21 17:25 Received MAGNESIUM [CHEM] Routine Lab 02/02/21 20:32 Ordered TROPONIN I [CHEM] Routine Lab 02/02/21 20:32 Ordered TSH [CHEM] Routine Lab 02/02/21 20:43 Ordered URIC ACID, URINE Urgent Lab 02/02/21 20:42 Ordered Acetaminophen [TylenoL] Med 02/02/21 20:32 Ordered 650 mg PO Q6H PRN Acetaminophen/HYDROcodone [[place]comb 325-5 MG] Med 02/02/21 20:32 Ordered 1 tab PO Q6H PRN Albuterol/Ipratropium [DuoNeb 3.0-0.5 MG/3 ML] Med 02/02/21 20:32 Ordered 3 ml NEB Q4H PRN HYDROmorphone [Dilaudid] Med 02/02/21 20:32 Ordered 0.5 mg IVPUSH Q2H PRN LORazepam [Ativan] Med 02/02/21 20:32 Ordered 0.5 mg IV Q6H PRN Promethazine [Phenergan] 12.5 mg Med 02/02/21 20:32 Ordered Sodium Chloride 0.9% [Normal Saline] 50 ml IV Q6H Sodium Chloride 0.9% [Normal Saline] 1,000 ml Med 02/02/21 20:45 Ordered IV ASDIRECTED Sodium Chloride 0.9% [Saline Flush] Med 02/02/21 17:41 Active 10 ml FLUSH ASDIRECTED PRN cefTRIAXone [Rocephin] 1 gm Med 02/02/21 20:45 Ordered Sodium Chloride 0.9% [Normal Saline] 100 ml IV Q24H hydrALAZINE [Apresoline] Med 02/02/21 20:39 Ordered 10 mg IVPUSH Q4H PRN Blood Culture x2 Reflex Set [OM.PC] Stat Oth 02/02/21 20:32 Ordered Peripheral IV Insertion Adult [OM.PC] Stat Oth 02/02/21 17:41 Ordered Sequential Compression Device [OM.PC] Per Unit Routine Oth 02/02/21 20:33 Ordered Medication Orders Acetaminophen (Acetaminophen 325 Mg Tab) 650 mg PO Q6H PRN PRN Reason: Pain (Mild 1-3)/fever Hydrocodone Bitart/Acetaminophen (Acetaminophen/Hydrocodone 325-5 Mg Tab) 1 tab PO Q6H PRN PRN Reason: Pain (moderate 4-6) Albuterol/Ipratropium (Albuterol/Ipratropium 3.0-0.5 Mg/3 Ml Neb Soln) 3 ml NEB Q4H PRN PRN Reason: Shortness Of Breath/wheezing Hydralazine HCl (Hydralazine 20 Mg/Ml Sdv) 10 mg IVPUSH Q4H PRN PRN Reason: Hypertension Hydromorphone HCl (Hydromorphone 0.5 Mg/0.5 Ml Syringe) 0.5 mg IVPUSH Q2H PRN PRN Reason: Pain (severe 7-10) Sodium Chloride (Normal Saline) 1,000 mls @ 70 mls/hr IV ASDIRECTED MARTHA Promethazine HCl 12.5 mg/ (Sodium Chloride) 50.5 mls @ 100 mls/hr IV Q6H PRN PRN Reason: Nausea/Vomiting Ceftriaxone Sodium 1 gm/ (Sodium Chloride) 100 mls @ 200 mls/hr IV Q24H MARTHA Lorazepam (Lorazepam 2 Mg/Ml Sdv) 0.5 mg IV Q6H PRN PRN Reason: Anxiety Sodium Chloride (Sodium Chloride 0.9% 10 Ml Syringe) 10 ml FLUSH ASDIRECTED PRN PRN Reason: Keep Vein Open Last Admin: 02/02/21 17:52 Dose: 10 ml Documented by: SANDI Assessment/Plan Comment:: Patient is a 30-year-old male with a history of nephrolithiasis status post stenting who presented to the ER due to right flank pain for 3 days. The pain is constant, sharp in nature and a 8 out of 10 in severity associated with nausea and mild dizziness, radiating to inguinal area. Patient also reports that he has been having pink urine (gross hematuria) for about 9 days. Assessment: Abdominal pain/ureterric colic Dilitation of the collecting system and renal pelvis and mild inflammatory change, right. S/p stenting, stent was removed. Nonobstrucive nephrolithiasis, B/L s/p stenting, L -Creatinine 1.2 on admission -Right CVA tenderness -No definite obstructiong calculi within the right ureter -Possible early renal infection, right -Left ureteral stent is satisfactorily located -Etiology for multiple calculi unknown. Urine uric acid, oxalic acid (not available), and TSH. serum edward WNL Gross hematuria -Etiologies include renal calculi and recent procedures -urine RBC > 100 -urine color: red -urine occult blood: 3+ -H/H: 14.0/39.2 on admission UTI/right pyelonephritis -Nonobstructive nephrolithiasis and recent bilateral procedure -Urine nitrate -Urine leukocyte esterase: 1+ -Urine WBC 10-20 Liver granulomas -CT abd - 2 small calcifications within the posterior right lobe which c ompatible with small granulomas. -On admission: AST/ALT: 9/15, alkaline phos 70, total bilirubin 1.2 Cholelithiasis Obesity, BMI 36.4 Plan: 1. Patient was admitted to the hospital as an observation status which was switched to inpatient status. 2. Blood culture and urine culture. Continue ceftriaxone. Pending urine culture result 3. Will repeat CT abdomen 4. Repeat renal function daily in morning 5. Pain management including IV Dilaudid 6. Monitor hemoglobin 7. Follow with PCP, GI and surgeon for his liver granulomas, cholelithiasis and obesity 8. DVT prophylaxis: SCD. No pharmacological DVT prophylaxis due to gross hematuria 9. CODE STATUS: Full 10. Deposition: 1 or 2 more days - Mortality Measure Prognosis:: Good
[2021-02-02] MEDS: Acetaminophen/HYDROcodone 325-5 MG Tab PO PRN (20:54)
[2021-02-02] MEDS: HYDROmorphone 0.5 MG/0.5 ML Syringe IVPUSH PRN (20:54)
[2021-02-02] MEDS: Sodium Chloride 0.9% 1,000 ML IV SCH (22:07)
[2021-02-03] MEDS: HYDROmorphone 0.5 MG/0.5 ML Syringe IVPUSH PRN ×4 (00:01→09:17)
[2021-02-03] MEDS: Acetaminophen/HYDROcodone 325-5 MG Tab PO PRN ×3 (03:13→17:27)
[2021-02-03] MEDS ORDERED: Magnesium Sulfate/Water 2 GM/50 ML BAG IV SCH (09:30)
[2021-02-03] MEDS ORDERED: Magnesium Sulfate/Water 2 GM/50 ML BAG IV ONE (09:45)
[2021-02-03] MEDS: Docusate Sodium 100 MG Cap PO PRN (09:48)
[2021-02-03] MEDS: HYDROmorphone 1 MG/ML Syringe IVPUSH PRN ×4 (11:03→21:14)
[2021-02-03] MEDS: Sodium Chloride 0.9% 1,000 ML IV SCH (11:46)
--- NOTE | 2021-02-03 11:58 | PCM.PN ---
- General Info Date of Service: 02/03/21 Admission Dx/Problem (Free Text): Admission Diagnosis/Problem Admission Diagnosis/Problem Flank pain Subjective Update: Patient is a 30-year-old male with a history of nephrolithiasis status post stenting who presented to the ER due to right flank pain for 3 days. The pain is constant, sharp in nature and a 8 out of 10 in severity associated with nausea and mild dizziness, radiating to inguinal area. Patient also reports that he has been having pink urine (gross hematuria) for about 9 days. Pain is not controlled. Patient still has a lot of pain from right flank. The pain is 8 out of 10. Vital signs are stable WBC 9.14 Mag 1.6 Creatinine 1.1 - Review of Systems Systems Review Comment:: General: Reports: No Symptoms HEENT: Reports: No Symptoms Pulmonary: Reports: No Symptoms Cardiovascular: Reports: No Symptoms Gastrointestinal: Reports: Nausea Genitourinary: Reports: Hematuria, Flank Pain Musculoskeletal: Reports: No Symptoms Skin: Reports: No Symptoms Psychiatric: Reports: No Symptoms Neurological: Reports: No Symptoms Hematologic/Lymphatic: Reports: No Symptoms Immunologic: Reports: No Symptoms - Patient Data Vitals - Most Recent: Last Vital Signs Temp 37.1 C 02/03/21 03:14 Pulse 76 02/03/21 03:14 Resp 18 02/03/21 03:14 BP 145/87 H 02/03/21 03:14 Pulse Ox 97 02/03/21 03:14 Weight - Most Recent: 122.561 kg I&O - Last 24 Hours: Intake & Output 02/02/21 02/03/21 02/03/21 22:59 06:59 14:59 Intake Total 861 Balance 861 Lab Results Last 24 Hours: Laboratory Results - last 24 hr 02/02/21 02/02/21 02/02/21 Range/Units 17:20 17:20 17:25 WBC 10.07 H (4.23-9.07) K/mm3 RBC 4.77 (4.63-6.08) M/mm3 Hgb 14.0 (13.7-17.5) gm/dl Hct 39.2 L (40.1-51.0) % MCV 82.2 (79.0-92.2) fl MCH 29.4 (25.7-32.2) pg MCHC 35.7 H (32.2-35.5) g/dl RDW Std Deviation 37.1 (35.1-43.9) fL Plt Count 270 (163-337) K/mm3 MPV 10.5 (9.4-12.3) fl Neut % (Auto) 74.8 H (34.0-67.9) % Lymph % (Auto) 17.1 L (21.8-53.1) % [place] % (Auto) 7.2 (5.3-12.2) % Eos % (Auto) 0.6 L (0.8-7.0) Baso % (Auto) 0.2 (0.1-1.2) % Neut # (Auto) 7.53 H (1.78-5.38) K/mm3 Lymph # (Auto) 1.72 (1.32-3.57) K/mm3 [place] # (Auto) 0.73 (0.30-0.82) K/mm3 Eos # (Auto) 0.06 (0.04-0.54) K/mm3 Baso # (Auto) 0.02 (0.01-0.08) K/mm3 Manual Slide Review Sodium 142 (136-145) mEq/L Potassium 3.6 (3.5-5.1) mEq/L Chloride 104 (98-107) mEq/L Carbon Dioxide 23 (21-32) mEq/L Anion Gap 18.6 H (5-15) BUN 19 H (7-18) mg/dL Creatinine 1.2 (0.7-1.3) mg/dL Est Cr Clr Drug Dosing 100.80 mL/min Estimated GFR (MDRD) > 60 (>60) mL/min BUN/Creatinine Ratio 15.8 (14-18) Glucose 101 (74-106) mg/dL Calcium 8.6 (8.5-10.1) mg/dL Magnesium (1.8-2.4) mg/dl Total Bilirubin 1.2 H (0.2-1.0) mg/dL AST 9 L (15-37) U/L ALT 15 L (16-63) U/L Alkaline Phosphatase 70 (46-116) U/L Troponin I (0.00-0.056) ng/mL Total Protein 7.0 (6.4-8.2) g/dl Albumin 3.7 (3.4-5.0) g/dl Globulin 3.3 gm/dL Albumin/Globulin Ratio 1.1 (1-2) TSH 3rd Generation (0.358-3.74) uIU/mL Urine Color Red H (Yellow) Urine Appearance Cloudy H (Clear) Urine pH 6.5 (5.0-8.0) Ur Specific [place] 1.025 (1.005-1.030) Urine Protein 3+ H (Negative) Urine Glucose (UA) Negative (Negative) Urine Ketones 1+ H (Negative) Urine Occult Blood 3+ H (Negative) Urine Nitrite Positive H (Negative) Urine Bilirubin 1+ H (Negative) Urine Urobilinogen 4.0 H (0.2-1.0) Ur Leukocyte Esterase 1+ H (Negative) Urine RBC >100 H (0-5) /hpf Urine WBC 10-20 H (0-5) /hpf Ur Squamous Epith Cells 0-5 (0-5) /hpf Urine Bacteria Moderate H (FEW) /hpf Urine Mucus Few (FEW) /hpf SARS-CoV-2 RNA (NAHUN) (NEGATIVE) 02/02/21 02/02/21 02/03/21 Range/Units 21:02 21:02 06:03 WBC 9.14 H (4.23-9.07) K/mm3 RBC 4.74 (4.63-6.08) M/mm3 Hgb 13.9 (13.7-17.5) gm/dl Hct 39.4 L (40.1-51.0) % MCV 83.1 (79.0-92.2) fl MCH 29.3 (25.7-32.2) pg MCHC 35.3 (32.2-35.5) g/dl RDW Std Deviation 37.5 (35.1-43.9) fL Plt Count 259 (163-337) K/mm3 MPV 9.9 (9.4-12.3) fl Neut % (Auto) 73.4 H (34.0-67.9) % Lymph % (Auto) 17.1 L (21.8-53.1) % [place] % (Auto) 8.3 (5.3-12.2) % Eos % (Auto) 0.8 (0.8-7.0) Baso % (Auto) 0.3 (0.1-1.2) % Neut # (Auto) 6.71 H (1.78-5.38) K/mm3 Lymph # (Auto) 1.56 (1.32-3.57) K/mm3 [place] # (Auto) 0.76 (0.30-0.82) K/mm3 Eos # (Auto) 0.07 (0.04-0.54) K/mm3 Baso # (Auto) 0.03 (0.01-0.08) K/mm3 Manual Slide Review Sodium (136-145) mEq/L Potassium (3.5-5.1) mEq/L Chloride (98-107) mEq/L Carbon Dioxide (21-32) mEq/L Anion Gap (5-15) BUN (7-18) mg/dL Creatinine (0.7-1.3) mg/dL Est Cr Clr Drug Dosing mL/min Estimated GFR (MDRD) (>60) mL/min BUN/Creatinine Ratio (14-18) Glucose (74-106) mg/dL Calcium (8.5-10.1) mg/dL Magnesium 1.6 L (1.8-2.4) mg/dl Total Bilirubin (0.2-1.0) mg/dL AST (15-37) U/L ALT (16-63) U/L Alkaline Phosphatase (46-116) U/L Troponin I < 0.017 (0.00-0.056) ng/mL Total Protein (6.4-8.2) g/dl Albumin (3.4-5.0) g/dl Globulin gm/dL Albumin/Globulin Ratio (1-2) TSH 3rd Generation 2.886 (0.358-3.74) uIU/mL Urine Color (Yellow) Urine Appearance (Clear) Urine pH (5.0-8.0) Ur Specific [place] (1.005-1.030) Urine Protein (Negative) Urine Glucose (UA) (Negative) Urine Ketones (Negative) Urine Occult Blood (Negative) Urine Nitrite (Negative) Urine Bilirubin (Negative) Urine Urobilinogen (0.2-1.0) Ur Leukocyte Esterase (Negative) Urine RBC (0-5) /hpf Urine WBC (0-5) /hpf Ur Squamous Epith Cells (0-5) /hpf Urine Bacteria (FEW) /hpf Urine Mucus (FEW) /hpf SARS-CoV-2 RNA (NAHUN) (NEGATIVE) 02/03/21 02/03/21 Range/Units 06:03 10:15 WBC (4.23-9.07) K/mm3 RBC (4.63-6.08) M/mm3 Hgb (13.7-17.5) gm/dl Hct (40.1-51.0) % MCV (79.0-92.2) fl MCH (25.7-32.2) pg MCHC (32.2-35.5) g/dl RDW Std Deviation (35.1-43.9) fL Plt Count (163-337) K/mm3 MPV (9.4-12.3) fl Neut % (Auto) (34.0-67.9) % Lymph % (Auto) (21.8-53.1) % [place] % (Auto) (5.3-12.2) % Eos % (Auto) (0.8-7.0) Baso % (Auto) (0.1-1.2) % Neut # (Auto) (1.78-5.38) K/mm3 Lymph # (Auto) (1.32-3.57) K/mm3 [place] # (Auto) (0.30-0.82) K/mm3 Eos # (Auto) (0.04-0.54) K/mm3 Baso # (Auto) (0.01-0.08) K/mm3 Manual Slide Review Sodium 141 (136-145) mEq/L Potassium 3.8 (3.5-5.1) mEq/L Chloride 104 (98-107) mEq/L Carbon Dioxide 25 (21-32) mEq/L Anion Gap 15.8 H (5-15) BUN 17 (7-18) mg/dL Creatinine 1.1 (0.7-1.3) mg/dL Est Cr Clr Drug Dosing 113.13 mL/min Estimated GFR (MDRD) > 60 (>60) mL/min BUN/Creatinine Ratio 15.5 (14-18) Glucose 105 (74-106) mg/dL Calcium 8.1 L (8.5-10.1) mg/dL Magnesium (1.8-2.4) mg/dl Total Bilirubin 1.0 (0.2-1.0) mg/dL AST 8 L (15-37) U/L ALT 22 (16-63) U/L Alkaline Phosphatase 67 (46-116) U/L Troponin I (0.00-0.056) ng/mL Total Protein 6.9 (6.4-8.2) g/dl Albumin 3.3 L (3.4-5.0) g/dl Globulin 3.6 gm/dL Albumin/Globulin Ratio 0.9 L (1-2) TSH 3rd Generation (0.358-3.74) uIU/mL Urine Color (Yellow) Urine Appearance (Clear) Urine pH (5.0-8.0) Ur Specific [place] (1.005-1.030) Urine Protein (Negative) Urine Glucose (UA) (Negative) Urine Ketones (Negative) Urine Occult Blood (Negative) Urine Nitrite (Negative) Urine Bilirubin (Negative) Urine Urobilinogen (0.2-1.0) Ur Leukocyte Esterase (Negative) Urine RBC (0-5) /hpf Urine WBC (0-5) /hpf Ur Squamous Epith Cells (0-5) /hpf Urine Bacteria (FEW) /hpf Urine Mucus (FEW) /hpf SARS-CoV-2 RNA (NAHUN) Negative (NEGATIVE) Max[facility] Results Last 24 Hours: Microbiology 02/02/21 17:25 Urine Culture - Preliminary Urine, Clean Catch NO GROWTH AFTER 1 DAY Med Orders - Current: Current Medications Acetaminophen (Acetaminophen 325 Mg Tab) 650 mg PO Q6H PRN PRN Reason: Pain (Mild 1-3)/fever Hydrocodone Bitart/Acetaminophen (Acetaminophen/Hydrocodone 325-5 Mg Tab) 1 tab PO Q6H PRN PRN Reason: Pain (moderate 4-6) Last Admin: 02/03/21 09:17 Dose: 1 tab Documented by: Albuterol/Ipratropium (Albuterol/Ipratropium 3.0-0.5 Mg/3 Ml Neb Soln) 3 ml NEB Q4H PRN PRN Reason: Shortness Of Breath/wheezing Docusate Sodium (Docusate Sodium 100 Mg Cap) 100 mg PO BID PRN PRN Reason: Constipation Last Admin: 02/03/21 09:48 Dose: 100 mg Documented by: Hydralazine HCl (Hydralazine 20 Mg/Ml Sdv) 10 mg IVPUSH Q4H PRN PRN Reason: Hypertension Hydromorphone HCl (Hydromorphone 1 Mg/Ml Syringe) 1 mg IVPUSH Q2H PRN PRN Reason: Pain Last Admin: 02/03/21 11:03 Dose: 1 mg Documented by: Sodium Chloride (Normal Saline) 1,000 mls @ 70 mls/hr IV ASDIRECTED MARTHA Last Admin: 02/03/21 11:46 Dose: 70 mls/hr Documented by: Promethazine HCl 12.5 mg/ (Sodium Chloride) 50.5 mls @ 100 mls/hr IV Q6H PRN PRN Reason: Nausea/Vomiting Ceftriaxone Sodium 1 gm/ (Sodium Chloride) 100 mls @ 200 mls/hr IV Q24H MARTHA Lorazepam (Lorazepam 2 Mg/Ml Sdv) 0.5 mg IV Q6H PRN PRN Reason: Anxiety Sodium Chloride (Sodium Chloride 0.9% 10 Ml Syringe) 10 ml FLUSH ASDIRECTED PRN PRN Reason: Keep Vein Open Last Admin: 02/02/21 17:52 Dose: 10 ml Documented by: Discontinued Medications Hydromorphone HCl (Hydromorphone 0.5 Mg/0.5 Ml Syringe) 0.5 mg IVPUSH ONETIME ONE Stop: 02/02/21 17:43 Last Admin: 02/02/21 17:52 Dose: 0.5 mg Documented by: Hydromorphone HCl (Hydromorphone 0.5 Mg/0.5 Ml Syringe) 0.5 mg IVPUSH Q2H PRN PRN Reason: Pain (severe 7-10) Last Admin: 02/03/21 09:17 Dose: 0.5 mg Documented by: Ceftriaxone Sodium 2 gm/ (Sodium Chloride) 100 mls @ 200 mls/hr IV ONETIME ONE Stop: 02/02/21 19:41 Last Admin: 02/02/21 19:29 Dose: 200 mls/hr Documented by: Magnesium Sulfate (Magnesium Sulfate In Water 2 Gm/50 Ml) 2 gm in 50 mls @ 25 mls/hr IV Q1H MARTHA Last Admin: 02/03/21 10:43 Dose: Not Given Documented by: Magnesium Sulfate (Magnesium Sulfate In Water 2 Gm/50 Ml) 2 gm in 50 mls @ 25 mls/hr IV ONETIME ONE Stop: 02/03/21 11:44 Last Admin: 02/03/21 09:48 Dose: 25 mls/hr Documented by: Lorazepam (Lorazepam 2 Mg/Ml Sdv) 0.5 mg IVPUSH ONETIME ONE Stop: 02/02/21 17:43 Last Admin: 02/02/21 17:51 Dose: 0.5 mg Documented by: - Exam Physical Findings Comments:: General: Alert, Oriented, Cooperative, Moderate Distress (Due to pain) HEENT: Conjunctiva Clear, EOMI, Pupils Equal, Pupils Reactive Neck: Supple, Trachea Midline, Full Range of Motion Lungs: Clear to Auscultation, Normal Respiratory Effort Cardiovascular: Regular Rate, Regular Rhythm, Normal S1, Normal S2 GI/Abdominal Exam: Normal Bowel Sounds, Soft, Non-Tender, No Organomegaly (Male) Exam: Deferred Rectal (Males) Exam: Deferred Back Exam: CVA Tenderness (R) Extremities: Normal Inspection, Normal Range of Motion, Non-Tender, No Pedal Edema Skin: Warm, Dry, Intact Neurological: Cranial Nerves Intact, Reflexes Equal Bilateral, Strength Equal Bilateral, Normal Speech, Normal Tone, Sensation Intact Neuro Extensive - Mental Status: Alert, Oriented x3, Normal Mood/Affect Neuro Extensive - Motor, Sensory, Reflexes: CN II-XII Intact Psychiatric: Normal Mood - Patient Data Lab Results Last 24 hrs: Laboratory Results - last 24 hr 02/02/21 02/02/21 02/02/21 Range/Units 17:20 17:20 17:25 WBC 10.07 H (4.23-9.07) K/mm3 RBC 4.77 (4.63-6.08) M/mm3 Hgb 14.0 (13.7-17.5) gm/dl Hct 39.2 L (40.1-51.0) % MCV 82.2 (79.0-92.2) fl MCH 29.4 (25.7-32.2) pg MCHC 35.7 H (32.2-35.5) g/dl RDW Std Deviation 37.1 (35.1-43.9) fL Plt Count 270 (163-337) K/mm3 MPV 10.5 (9.4-12.3) fl Neut % (Auto) 74.8 H (34.0-67.9) % Lymph % (Auto) 17.1 L (21.8-53.1) % [place] % (Auto) 7.2 (5.3-12.2) % Eos % (Auto) 0.6 L (0.8-7.0) Baso % (Auto) 0.2 (0.1-1.2) % Neut # (Auto) 7.53 H (1.78-5.38) K/mm3 Lymph # (Auto) 1.72 (1.32-3.57) K/mm3 [place] # (Auto) 0.73 (0.30-0.82) K/mm3 Eos # (Auto) 0.06 (0.04-0.54) K/mm3 Baso # (Auto) 0.02 (0.01-0.08) K/mm3 Manual Slide Review Sodium 142 (136-145) mEq/L Potassium 3.6 (3.5-5.1) mEq/L Chloride 104 (98-107) mEq/L Carbon Dioxide 23 (21-32) mEq/L Anion Gap 18.6 H (5-15) BUN 19 H (7-18) mg/dL Creatinine 1.2 (0.7-1.3) mg/dL Est Cr Clr Drug Dosing 100.80 mL/min Estimated GFR (MDRD) > 60 (>60) mL/min BUN/Creatinine Ratio 15.8 (14-18) Glucose 101 (74-106) mg/dL Calcium 8.6 (8.5-10.1) mg/dL Magnesium (1.8-2.4) mg/dl Total Bilirubin 1.2 H (0.2-1.0) mg/dL AST 9 L (15-37) U/L ALT 15 L (16-63) U/L Alkaline Phosphatase 70 (46-116) U/L Troponin I (0.00-0.056) ng/mL Total Protein 7.0 (6.4-8.2) g/dl Albumin 3.7 (3.4-5.0) g/dl Globulin 3.3 gm/dL Albumin/Globulin Ratio 1.1 (1-2) TSH 3rd Generation (0.358-3.74) uIU/mL Urine Color Red H (Yellow) Urine Appearance Cloudy H (Clear) Urine pH 6.5 (5.0-8.0) Ur Specific [place] 1.025 (1.005-1.030) Urine Protein 3+ H (Negative) Urine Glucose (UA) Negative (Negative) Urine Ketones 1+ H (Negative) Urine Occult Blood 3+ H (Negative) Urine Nitrite Positive H (Negative) Urine Bilirubin 1+ H (Negative) Urine Urobilinogen 4.0 H (0.2-1.0) Ur Leukocyte Esterase 1+ H (Negative) Urine RBC >100 H (0-5) /hpf Urine WBC 10-20 H (0-5) /hpf Ur Squamous Epith Cells 0-5 (0-5) /hpf Urine Bacteria Moderate H (FEW) /hpf Urine Mucus Few (FEW) /hpf SARS-CoV-2 RNA (NAHUN) (NEGATIVE) 02/02/21 02/02/21 02/03/21 Range/Units 21:02 21:02 06:03 WBC 9.14 H (4.23-9.07) K/mm3 RBC 4.74 (4.63-6.08) M/mm3 Hgb 13.9 (13.7-17.5) gm/dl Hct 39.4 L (40.1-51.0) % MCV 83.1 (79.0-92.2) fl MCH 29.3 (25.7-32.2) pg MCHC 35.3 (32.2-35.5) g/dl RDW Std Deviation 37.5 (35.1-43.9) fL Plt Count 259 (163-337) K/mm3 MPV 9.9 (9.4-12.3) fl Neut % (Auto) 73.4 H (34.0-67.9) % Lymph % (Auto) 17.1 L (21.8-53.1) % [place] % (Auto) 8.3 (5.3-12.2) % Eos % (Auto) 0.8 (0.8-7.0) Baso % (Auto) 0.3 (0.1-1.2) % Neut # (Auto) 6.71 H (1.78-5.38) K/mm3 Lymph # (Auto) 1.56 (1.32-3.57) K/mm3 [place] # (Auto) 0.76 (0.30-0.82) K/mm3 Eos # (Auto) 0.07 (0.04-0.54) K/mm3 Baso # (Auto) 0.03 (0.01-0.08) K/mm3 Manual Slide Review Sodium (136-145) mEq/L Potassium (3.5-5.1) mEq/L Chloride (98-107) mEq/L Carbon Dioxide (21-32) mEq/L Anion Gap (5-15) BUN (7-18) mg/dL Creatinine (0.7-1.3) mg/dL Est Cr Clr Drug Dosing mL/min Estimated GFR (MDRD) (>60) mL/min BUN/Creatinine Ratio (14-18) Glucose (74-106) mg/dL Calcium (8.5-10.1) mg/dL Magnesium 1.6 L (1.8-2.4) mg/dl Total Bilirubin (0.2-1.0) mg/dL AST (15-37) U/L ALT (16-63) U/L Alkaline Phosphatase (46-116) U/L Troponin I < 0.017 (0.00-0.056) ng/mL Total Protein (6.4-8.2) g/dl Albumin (3.4-5.0) g/dl Globulin gm/dL Albumin/Globulin Ratio (1-2) TSH 3rd Generation 2.886 (0.358-3.74) uIU/mL Urine Color (Yellow) Urine Appearance (Clear) Urine pH (5.0-8.0) Ur Specific [place] (1.005-1.030) Urine Protein (Negative) Urine Glucose (UA) (Negative) Urine Ketones (Negative) Urine Occult Blood (Negative) Urine Nitrite (Negative) Urine Bilirubin (Negative) Urine Urobilinogen (0.2-1.0) Ur Leukocyte Esterase (Negative) Urine RBC (0-5) /hpf Urine WBC (0-5) /hpf Ur Squamous Epith Cells (0-5) /hpf Urine Bacteria (FEW) /hpf Urine Mucus (FEW) /hpf SARS-CoV-2 RNA (NAHUN) (NEGATIVE) 02/03/21 02/03/21 Range/Units 06:03 10:15 WBC (4.23-9.07) K/mm3 RBC (4.63-6.08) M/mm3 Hgb (13.7-17.5) gm/dl Hct (40.1-51.0) % MCV (79.0-92.2) fl MCH (25.7-32.2) pg MCHC (32.2-35.5) g/dl RDW Std Deviation (35.1-43.9) fL Plt Count (163-337) K/mm3 MPV (9.4-12.3) fl Neut % (Auto) (34.0-67.9) % Lymph % (Auto) (21.8-53.1) % [place] % (Auto) (5.3-12.2) % Eos % (Auto) (0.8-7.0) Baso % (Auto) (0.1-1.2) % Neut # (Auto) (1.78-5.38) K/mm3 Lymph # (Auto) (1.32-3.57) K/mm3 [place] # (Auto) (0.30-0.82) K/mm3 Eos # (Auto) (0.04-0.54) K/mm3 Baso # (Auto) (0.01-0.08) K/mm3 Manual Slide Review Sodium 141 (136-145) mEq/L Potassium 3.8 (3.5-5.1) mEq/L Chloride 104 (98-107) mEq/L Carbon Dioxide 25 (21-32) mEq/L Anion Gap 15.8 H (5-15) BUN 17 (7-18) mg/dL Creatinine 1.1 (0.7-1.3) mg/dL Est Cr Clr Drug Dosing 113.13 mL/min Estimated GFR (MDRD) > 60 (>60) mL/min BUN/Creatinine Ratio 15.5 (14-18) Glucose 105 (74-106) mg/dL Calcium 8.1 L (8.5-10.1) mg/dL Magnesium (1.8-2.4) mg/dl Total Bilirubin 1.0 (0.2-1.0) mg/dL AST 8 L (15-37) U/L ALT 22 (16-63) U/L Alkaline Phosphatase 67 (46-116) U/L Troponin I (0.00-0.056) ng/mL Total Protein 6.9 (6.4-8.2) g/dl Albumin 3.3 L (3.4-5.0) g/dl Globulin 3.6 gm/dL Albumin/Globulin Ratio 0.9 L (1-2) TSH 3rd Generation (0.358-3.74) uIU/mL Urine Color (Yellow) Urine Appearance (Clear) Urine pH (5.0-8.0) Ur Specific [place] (1.005-1.030) Urine Protein (Negative) Urine Glucose (UA) (Negative) Urine Ketones (Negative) Urine Occult Blood (Negative) Urine Nitrite (Negative) Urine Bilirubin (Negative) Urine Urobilinogen (0.2-1.0) Ur Leukocyte Esterase (Negative) Urine RBC (0-5) /hpf Urine WBC (0-5) /hpf Ur Squamous Epith Cells (0-5) /hpf Urine Bacteria (FEW) /hpf Urine Mucus (FEW) /hpf SARS-CoV-2 RNA (NAHUN) Negative (NEGATIVE) Result Diagrams: 02/03/21 06:03 02/03/21 06:03 Max[facility] Results Last 24 hrs: Microbiology 02/02/21 17:25 Urine Culture - Preliminary Urine, Clean Catch NO GROWTH AFTER 1 DAY Sepsis Event Note - Evaluation Sepsis Screening Result: No Definite Risk - Focused Exam Vital Signs: Vital Signs Temp Pulse Resp BP Pulse Ox 02/03/21 03:14 37.1 C 76 18 145/87 H 97 02/03/21 00:06 36.8 C 79 14 133/85 98 - Problem List Review Problem List Initiated/Reviewed/Updated: Yes - My Orders Last 24 Hours: My Active Orders 02/02/21 19:25 URIC ACID, URINE Urgent 02/02/21 20:32 Ambulate [RC] ASDIRECTED Oxygen Therapy [RC] PRN Vital Signs [RC] Q4HR Acetaminophen [TylenoL] 650 mg PO Q6H PRN Acetaminophen/HYDROcodone [[place] 325-5 MG] 1 tab PO Q6H PRN Albuterol/Ipratropium [DuoNeb 3.0-0.5 MG/3 ML] 3 ml NEB Q4H PRN LORazepam [Ativan] 0.5 mg IV Q6H PRN Promethazine [Phenergan] 12.5 mg Sodium Chloride 0.9% [Normal Saline] 50 ml IV Q6H Blood Culture x2 Reflex Set [OM.PC] Stat 02/02/21 20:33 Intake and Output [RC] 04,16 Sequential Compression Device [OM.PC] Per Unit Routine 02/02/21 20:34 Antiembolic Devices [RC] PER UNIT ROUTINE 02/02/21 20:36 RT Aerosol Therapy [RC] ASDIRECTED 02/02/21 20:39 hydrALAZINE [Apresoline] 10 mg IVPUSH Q4H PRN 02/02/21 20:45 Sodium Chloride 0.9% [Normal Saline] 1,000 ml IV ASDIRECTED 02/02/21 21:02 CULTURE BLOOD [BC] Stat 02/02/21 21:10 CULTURE BLOOD [BC] Stat 02/02/21 21:16 Resuscitation Status Routine 02/03/21 09:44 Docusate Sodium [Colace] 100 mg PO BID PRN 02/03/21 10:12 HYDROmorphone [Dilaudid] 1 mg IVPUSH Q2H PRN 02/03/21 10:13 Pulse Oximetry Continuous Monitoring [OM.PC] Routine 02/03/21 10:56 Consult to Physical Therapy [PT Evaluation and Treatment] [CONS] Routine 02/03/21 10:59 Consult to Occupational Therapy [OT Evaluation and Treatment] [CONS] Routine 02/03/21 11:15 Admission Status [Patient Status] [ADT] Routine 02/03/21 17:00 Abdomen Pelvis wo Cont [CT] Routine 02/03/21 21:00 cefTRIAXone [Rocephin] 1 gm Sodium Chloride 0.9% [Normal Saline] 100 ml IV Q24H 02/04/21 05:00 CBC WITH AUTO DIFF [HEME] DAILY COMPREHENSIVE METABOLIC PN,CMP [CHEM] DAILY MAGNESIUM [CHEM] Routine 02/05/21 05:00 CBC WITH AUTO DIFF [HEME] DAILY COMPREHENSIVE METABOLIC PN,CMP [CHEM] DAILY 02/06/21 05:00 CBC WITH AUTO DIFF [HEME] DAILY COMPREHENSIVE METABOLIC PN,CMP [CHEM] DAILY - Plan Plan:: Patient is a 30-year-old male with a history of nephrolithiasis status post stenting who presented to the ER due to right flank pain for 3 days. The pain is constant, sharp in nature and a 8 out of 10 in severity associated with nausea and mild dizziness, radiating to inguinal area. Patient also reports that he has been having pink urine (gross hematuria) for about 9 days. Assessment: Abdominal pain/ureterric colic Dilitation of the collecting system and renal pelvis and mild inflammatory change, right. S/p stenting, stent was removed. Nonobstrucive nephrolithiasis, B/L s/p stenting, L -Creatinine 1.2 on admission -Right CVA tenderness -No definite obstructiong calculi within the right ureter -Possible early renal infection, right -Left ureteral stent is satisfactorily located -Etiology for multiple calculi unknown. Urine uric acid, oxalic acid (not available), and TSH. serum edward WNL Gross hematuria -Etiologies include renal calculi and recent procedures -urine RBC > 100 -urine color: red -urine occult blood: 3+ -H/H: 14.0/39.2 on admission UTI/right pyelonephritis -Nonobstructive nephrolithiasis and recent bilateral procedure -Urine nitrate -Urine leukocyte esterase: 1+ -Urine WBC 10-20 Liver granulomas -CT abd - 2 small calcifications within the posterior right lobe which compatible with small granulomas. -On admission: AST/ALT: 9/15, alkaline phos 70, total bilirubin 1.2 Cholelithiasis Obesity, BMI 36.4 Plan: 1. Patient was admitted to the hospital as an observation status which was switched to inpatient status. 2. Blood culture and urine culture. Continue ceftriaxone. Pending urine culture result 3. Will repeat CT abdomen 4. Repeat renal function daily in morning 5. Pain management including IV Dilaudid 6. Monitor hemoglobin 7. Follow with PCP, GI and surgeon for his liver granulomas, cholelithiasis and obesity 8. DVT prophylaxis: SCD. No pharmacological DVT prophylaxis due to gross hematuria 9. CODE STATUS: Full 10. Deposition: 1 or 2 more days
--- NOTE | 2021-02-03 17:38 | CT ---
CT abdomen and pelvis Technique: Multiple axial sections were obtained from above the dome of the diaphragm inferiorly through the pubic symphysis. Intravenous and oral contrast were not utilized. Reconstructed coronal and sagittal images were obtained. Comparison: Prior study of 02/02/21. Findings: Increased inflammatory type change is noted around the right kidney. Dilated right renal pelvis is noted. No ureteral dilatation is seen. Two small calculi are noted within the right kidney. Stable left ureteral stent is noted. Single small nonobstructing stone is seen within the left kidney. Small right-sided pleural effusion is seen which is an interval change. Minimal left-sided pleural effusion is noted. Mild atelectasis is seen within both lung bases. Liver shows several small calcifications posteriorly. No acute liver abnormality is otherwise seen. Multiple small gallstones are seen within the gallbladder. Pancreas shows no abnormality. Abdominal aorta shows no aneurysm. No retroperitoneal adenopathy or mesenteric abnormalities are seen. No pelvic mass or adenopathy is seen. Free fluid is again seen within the pelvis which appears to be stable. Appendix is seen and appears normal in size. Bone window settings were reviewed which show no acute osseous abnormality. Impression: 1. Increased inflammatory change around the right kidney. This most likely represents worsening right sided pyelonephritis. Obstructing ureteral findings can also cause this etiology although no ureteral dilatation is seen. 2. Small pleural effusion which is slightly larger on the right side. Both lung bases also show mild atelectasis. 3. Left ureteral stent is stable. 4. Numerous small gallstones are noted within the gallbladder. 5. Other findings believed to be incidental as noted above. Diagnostic code #3
[2021-02-03] MEDS: cefTRIAXone 2 GM in Sodium Chloride 0.9% 100 ML IV SCH (19:01)
[2021-02-03] MEDS ORDERED: cefTRIAXone 1 GM in Sodium Chloride 0.9% 100 ML IV SCH (21:00)
[2021-02-04] MEDS: Sodium Chloride 0.9% 1,000 ML IV SCH ×2 (01:30→15:04)
[2021-02-04] MEDS: HYDROmorphone 1 MG/ML Syringe IVPUSH PRN ×5 (01:32→22:10)
[2021-02-04] MEDS: Docusate Sodium 100 MG Cap PO PRN (05:22)
[2021-02-04] MEDS: Acetaminophen/HYDROcodone 325-5 MG Tab PO PRN ×2 (08:06→16:17)
--- NOTE | 2021-02-04 11:55 | PCM.PN ---
- General Info Date of Service: 02/04/21 Admission Dx/Problem (Free Text): Admission Diagnosis/Problem Admission Diagnosis/Problem Flank pain Subjective Update: Patient is a 30-year-old male with a history of nephrolithiasis status post stenting who presented to the ER due to right flank pain for 3 days. The pain is constant, sharp in nature and a 8 out of 10 in severity associated with nausea and mild dizziness, radiating to inguinal area. Patient also reports that he has been having pink urine (gross hematuria) for about 9 days. Patient still has right flank pain but the pain is controlled. Denies nausea, vomiting, fever, or chills. Afebrile White blood cells 9.27, creatinine 1.0 Total bilirubin 0.8 - Review of Systems Systems Review Comment:: General: Reports: No Symptoms HEENT: Reports: No Symptoms Pulmonary: Reports: No Symptoms Cardiovascular: Reports: No Symptoms Gastrointestinal: Reports: Nausea Genitourinary: Reports: Hematuria, Flank Pain Musculoskeletal: Reports: No Symptoms Skin: Reports: No Symptoms Psychiatric: Reports: No Symptoms Neurological: Reports: No Symptoms Hematologic/Lymphatic: Reports: No Symptoms Immunologic: Reports: No Symptoms - Patient Data Vitals - Most Recent: Last Vital Signs Temp 37.1 C 02/04/21 11:17 Pulse 74 02/04/21 11:39 Resp 16 02/04/21 11:17 BP 145/99 H 02/04/21 11:17 Pulse Ox 93 L 02/04/21 11:39 Weight - Most Recent: 122.606 kg I&O - Last 24 Hours: Intake & Output 02/03/21 02/04/21 02/04/21 22:59 06:59 14:59 Intake Total 1790 880 Balance 1790 880 Lab Results Last 24 Hours: Laboratory Results - last 24 hr 02/02/21 02/04/21 02/04/21 Range/Units 19:25 04:54 04:54 WBC 9.27 H (4.23-9.07) K/mm3 RBC 4.45 L (4.63-6.08) M/mm3 Hgb 12.8 L (13.7-17.5) gm/dl Hct 37.3 L (40.1-51.0) % MCV 83.8 (79.0-92.2) fl MCH 28.8 (25.7-32.2) pg MCHC 34.3 (32.2-35.5) g/dl RDW Std Deviation 37.7 (35.1-43.9) fL Plt Count 253 (163-337) K/mm3 MPV 10.1 (9.4-12.3) fl Neut % (Auto) 72.7 H (34.0-67.9) % Lymph % (Auto) 16.4 L (21.8-53.1) % [place] % (Auto) 9.2 (5.3-12.2) % Eos % (Auto) 1.4 (0.8-7.0) Baso % (Auto) 0.2 (0.1-1.2) % Neut # (Auto) 6.74 H (1.78-5.38) K/mm3 Lymph # (Auto) 1.52 (1.32-3.57) K/mm3 [place] # (Auto) 0.85 H (0.30-0.82) K/mm3 Eos # (Auto) 0.13 (0.04-0.54) K/mm3 Baso # (Auto) 0.02 (0.01-0.08) K/mm3 Sodium 142 (136-145) mEq/L Potassium 3.8 (3.5-5.1) mEq/L Chloride 105 (98-107) mEq/L Carbon Dioxide 26 (21-32) mEq/L Anion Gap 14.8 (5-15) BUN 16 (7-18) mg/dL Creatinine 1.0 (0.7-1.3) mg/dL Est Cr Clr Drug Dosing 124.44 mL/min Estimated GFR (MDRD) > 60 (>60) mL/min BUN/Creatinine Ratio 16.0 (14-18) Glucose 102 H (70-99) mg/dL Calcium 8.0 L (8.5-10.1) mg/dL Magnesium 1.8 (1.8-2.4) mg/dL Total Bilirubin 0.8 (0.2-1.0) mg/dL AST 8 L (15-37) U/L ALT 13 L (16-63) U/L Alkaline Phosphatase 65 (46-116) U/L Total Protein 6.2 L (6.4-8.2) g/dl Albumin 2.9 L (3.4-5.0) g/dl Globulin 3.3 gm/dL Albumin/Globulin Ratio 0.9 L (1-2) Ur Uric Acid Concent 93.3 mg/dL Maximus Results Last 24 Hours: Microbiology 02/02/21 17:25 Urine Culture - Final Urine, Clean Catch NO GROWTH AFTER 2 DAYS 02/02/21 21:02 Aerobic Blood Culture - Preliminary Blood - Venous NO GROWTH AFTER 1 DAY Anaerobic Blood Culture - Preliminary NO GROWTH AFTER 1 DAY 02/02/21 21:10 Aerobic Blood Culture - Preliminary Blood - Venous - Lab Draw NO GROWTH AFTER 1 DAY Anaerobic Blood Culture - Preliminary NO GROWTH AFTER 1 DAY Med Orders - Current: Current Medications Acetaminophen (Acetaminophen 325 Mg Tab) 650 mg PO Q6H PRN PRN Reason: Pain (Mild 1-3)/fever Hydrocodone Bitart/Acetaminophen (Acetaminophen/Hydrocodone 325-5 Mg Tab) 1 tab PO Q6H PRN PRN Reason: Pain (moderate 4-6) Last Admin: 02/04/21 08:06 Dose: 1 tab Documented by: Albuterol/Ipratropium (Albuterol/Ipratropium 3.0-0.5 Mg/3 Ml Neb Soln) 3 ml NEB Q4H PRN PRN Reason: Shortness Of Breath/wheezing Docusate Sodium (Docusate Sodium 100 Mg Cap) 100 mg PO BID PRN PRN Reason: Constipation Last Admin: 02/04/21 05:22 Dose: 100 mg Documented by: Hydralazine HCl (Hydralazine 20 Mg/Ml Sdv) 10 mg IVPUSH Q4H PRN PRN Reason: Hypertension Hydromorphone HCl (Hydromorphone 1 Mg/Ml Syringe) 1 mg IVPUSH Q2H PRN PRN Reason: Pain Last Admin: 02/04/21 11:00 Dose: 1 mg Documented by: Sodium Chloride (Normal Saline) 1,000 mls @ 70 mls/hr IV ASDIRECTED [facility] Last Admin: 02/04/21 01:30 Dose: 70 mls/hr Documented by: Promethazine HCl 12.5 mg/ (Sodium Chloride) 50.5 mls @ 100 mls/hr IV Q6H PRN PRN Reason: Nausea/Vomiting Ceftriaxone Sodium 2 gm/ (Sodium Chloride) 100 mls @ 200 mls/hr IV Q24H [facility] Last Admin: 02/03/21 19:01 Dose: 200 mls/hr Documented by: Lorazepam (Lorazepam 2 Mg/Ml Sdv) 0.5 mg IV Q6H PRN PRN Reason: Anxiety Sodium Chloride (Sodium Chloride 0.9% 10 Ml Syringe) 10 ml FLUSH ASDIRECTED PRN PRN Reason: Keep Vein Open Last Admin: 02/02/21 17:52 Dose: 10 ml Documented by: Discontinued Medications Hydromorphone HCl (Hydromorphone 0.5 Mg/0.5 Ml Syringe) 0.5 mg IVPUSH ONETIME ONE Stop: 02/02/21 17:43 Last Admin: 02/02/21 17:52 Dose: 0.5 mg Documented by: Hydromorphone HCl (Hydromorphone 0.5 Mg/0.5 Ml Syringe) 0.5 mg IVPUSH Q2H PRN PRN Reason: Pain (severe 7-10) Last Admin: 02/03/21 09:17 Dose: 0.5 mg Documented by: Ceftriaxone Sodium 2 gm/ (Sodium Chloride) 100 mls @ 200 mls/hr IV ONETIME ONE Stop: 02/02/21 19:41 Last Admin: 02/02/21 19:29 Dose: 200 mls/hr Documented by: Ceftriaxone Sodium 1 gm/ (Sodium Chloride) 100 mls @ 200 mls/hr IV Q24H [facility] Magnesium Sulfate (Magnesium Sulfate In Water 2 Gm/50 Ml) 2 gm in 50 mls @ 25 mls/hr IV Q1H [facility] Last Admin: 02/03/21 10:43 Dose: Not Given Documented by: Magnesium Sulfate (Magnesium Sulfate In Water 2 Gm/50 Ml) 2 gm in 50 mls @ 25 mls/hr IV ONETIME ONE Stop: 02/03/21 11:44 Last Admin: 02/03/21 09:48 Dose: 25 mls/hr Documented by: Lorazepam (Lorazepam 2 Mg/Ml Sdv) 0.5 mg IVPUSH ONETIME ONE Stop: 02/02/21 17:43 Last Admin: 02/02/21 17:51 Dose: 0.5 mg Documented by: - Exam Physical Findings Comments:: General: Alert, Oriented, Cooperative, Moderate Distress (Due to pain) HEENT: Conjunctiva Clear, EOMI, Pupils Equal, Pupils Reactive Neck: Supple, Trachea Midline, Full Range of Motion Lungs: Clear to Auscultation, Normal Respiratory Effort Cardiovascular: Regular Rate, Regular Rhythm, Normal S1, Normal S2 GI/Abdominal Exam: Normal Bowel Sounds, Soft, Non-Tender, No Organomegaly (Male) Exam: Deferred Rectal (Males) Exam: Deferred Back Exam: CVA Tenderness (R) Extremities: Normal Inspection, Normal Range of Motion, Non-Tender, No Pedal Edema Skin: Warm, Dry, Intact Neurological: Cranial Nerves Intact, Reflexes Equal Bilateral, Strength Equal Bilateral, Normal Speech, Normal Tone, Sensation Intact Neuro Extensive - Mental Status: Alert, Oriented x3, Normal Mood/Affect Neuro Extensive - Motor, Sensory, Reflexes: CN II-XII Intact Psychiatric: Normal Mood - Patient Data Lab Results Last 24 hrs: Laboratory Results - last 24 hr 02/02/21 02/04/21 02/04/21 Range/Units 19:25 04:54 04:54 WBC 9.27 H (4.23-9.07) K/mm3 RBC 4.45 L (4.63-6.08) M/mm3 Hgb 12.8 L (13.7-17.5) gm/dl Hct 37.3 L (40.1-51.0) % MCV 83.8 (79.0-92.2) fl MCH 28.8 (25.7-32.2) pg MCHC 34.3 (32.2-35.5) g/dl RDW Std Deviation 37.7 (35.1-43.9) fL Plt Count 253 (163-337) K/mm3 MPV 10.1 (9.4-12.3) fl Neut % (Auto) 72.7 H (34.0-67.9) % Lymph % (Auto) 16.4 L (21.8-53.1) % [place] % (Auto) 9.2 (5.3-12.2) % Eos % (Auto) 1.4 (0.8-7.0) Baso % (Auto) 0.2 (0.1-1.2) % Neut # (Auto) 6.74 H (1.78-5.38) K/mm3 Lymph # (Auto) 1.52 (1.32-3.57) K/mm3 [place] # (Auto) 0.85 H (0.30-0.82) K/mm3 Eos # (Auto) 0.13 (0.04-0.54) K/mm3 Baso # (Auto) 0.02 (0.01-0.08) K/mm3 Sodium 142 (136-145) mEq/L Potassium 3.8 (3.5-5.1) mEq/L Chloride 105 (98-107) mEq/L Carbon Dioxide 26 (21-32) mEq/L Anion Gap 14.8 (5-15) BUN 16 (7-18) mg/dL Creatinine 1.0 (0.7-1.3) mg/dL Est Cr Clr Drug Dosing 124.44 mL/min Estimated GFR (MDRD) > 60 (>60) mL/min BUN/Creatinine Ratio 16.0 (14-18) Glucose 102 H (70-99) mg/dL Calcium 8.0 L (8.5-10.1) mg/dL Magnesium 1.8 (1.8-2.4) mg/dL Total Bilirubin 0.8 (0.2-1.0) mg/dL AST 8 L (15-37) U/L ALT 13 L (16-63) U/L Alkaline Phosphatase 65 (46-116) U/L Total Protein 6.2 L (6.4-8.2) g/dl Albumin 2.9 L (3.4-5.0) g/dl Globulin 3.3 gm/dL Albumin/Globulin Ratio 0.9 L (1-2) Ur Uric Acid Concent 93.3 mg/dL Result Diagrams: 02/04/21 04:54 02/04/21 04:54 Maximus Results Last 24 hrs: Microbiology 02/02/21 17:25 Urine Culture - Final Urine, Clean Catch NO GROWTH AFTER 2 DAYS 02/02/21 21:02 Aerobic Blood Culture - Preliminary Blood - Venous NO GROWTH AFTER 1 DAY Anaerobic Blood Culture - Preliminary NO GROWTH AFTER 1 DAY 02/02/21 21:10 Aerobic Blood Culture - Preliminary Blood - Venous - Lab Draw NO GROWTH AFTER 1 DAY Anaerobic Blood Culture - Preliminary NO GROWTH AFTER 1 DAY Sepsis Event Note - Evaluation Sepsis Screening Result: No Definite Risk - Focused Exam Vital Signs: Vital Signs Temp Pulse Pulse Resp BP Pulse Ox 02/04/21 11:39 74 93 L 02/04/21 11:17 37.1 C 16 145/99 H 02/04/21 07:56 94 95 02/04/21 07:49 36.4 C 16 128/84 02/04/21 05:15 37.1 C 94 16 137/80 - Problem List Review Problem List Initiated/Reviewed/Updated: Yes - My Orders Last 24 Hours: My Active Orders 02/03/21 10:56 Consult to Physical Therapy [PT Evaluation and Treatment] [CONS] Routine 02/03/21 10:59 Consult to Occupational Therapy [OT Evaluation and Treatment] [CONS] Routine 02/03/21 11:15 Admission Status [Patient Status] [ADT] Routine 02/03/21 18:30 cefTRIAXone [Rocephin] 2 gm Sodium Chloride 0.9% [Normal Saline] 100 ml IV Q24H 02/04/21 08:43 UA W/MICROSCOPIC [URIN] Routine 02/04/21 Lunch Regular Diet [DIET] 02/05/21 05:00 CBC WITH AUTO DIFF [HEME] DAILY COMPREHENSIVE METABOLIC PN,CMP [CHEM] DAILY 02/06/21 05:00 CBC WITH AUTO DIFF [HEME] DAILY COMPREHENSIVE METABOLIC PN,CMP [CHEM] DAILY - Plan Plan:: Patient is a 30-year-old male with a history of nephrolithiasis status post stenting who presented to the ER due to right flank pain for 3 days. The pain is constant, sharp in nature and a 8 out of 10 in severity associated with nausea and mild dizziness, radiating to inguinal area. Patient also reports that he has been having pink urine (gross hematuria) for about 9 days. Assessment: Abdominal pain/ureterric colic Dilatation of the collecting system and renal pelvis and mild inflammatory change, right. S/p stenting, stent was removed. Nonobstructive nephrolithiasis, B/L s/p stenting, L -Creatinine 1.2 on admission -Right CVA tenderness -No definite obstructing calculi within the right ureter -Possible early renal infection, right -Left ureteral stent is satisfactorily located -Etiology for multiple calculi unknown. Urine uric acid concentration 93.3, oxalic acid (not available), and TSH 2.886. serum calcium WNL -Repeat CT abd on 02/03/2021 -dilated right renal pelvis; Increased inflammatory change around the right kidney. This most likely represents worsening right sided pyelonephritis obstructing urethral findings can also cause this etiology. -Discussed with urologist Dr. Alford at [place] in [place] this morning who advised that we do not need to care about the CT result. The dilation would take 2 to 3 weeks to resolve. No stent needed at this moment. Continue antibiotics and pain control. Do not need to repeat CT unless he has fever and elevation of white count. Once pain is controlled, patient can be discharged home and follow with [place] next week. 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 -On admission: AST/ALT: 9/15, alkaline phos 70, total bilirubin 1.2 Cholelithiasis Obesity, BMI 36.4 Plan: 1. Patient was switched to inpatient status. 2. Blood culture and urine culture-no growth so far. Increased ceftriaxone to 2 g daily from 1 g daily. Pending urine culture result 3. Repeat UA 4. Repeat renal function daily in morning 5. Pain management including IV Dilaudid (decreased) 6. Monitor hemoglobin 7. Follow with PCP, GI and surgeon for his liver granulomas, cholelithiasis and obesity 8. DVT prophylaxis: SCD. No pharmacological DVT prophylaxis due to gross hematuria 9. CODE STATUS: Full 10. Deposition: 1 or 2 more days
[2021-02-04] MEDS: cefTRIAXone 2 GM in Sodium Chloride 0.9% 100 ML IV SCH (17:57)
[2021-02-04] MEDS ORDERED: Magnesium Hydroxide 400 MG/5 ML Susp 30 ML Cup PO ONE (18:04)
[2021-02-05] MEDS: HYDROmorphone 1 MG/ML Syringe IVPUSH PRN (04:51)
[2021-02-05] MEDS: Sodium Chloride 0.9% 1,000 ML IV SCH (05:24)
[2021-02-05] MEDS ORDERED: HYDROmorphone 0.5 MG/0.5 ML Syringe IVPUSH PRN (09:31)
--- NOTE | 2021-02-05 12:19 | PCM.DCSUM1 ---
Discharge Summary - Hospital Course Free Text/Narrative:: Patient is a 30-year-old male with a history of nephrolithiasis status post stenting who presented to the ER due to right flank pain for 3 days. The pain is constant, sharp in nature and a 8 out of 10 in severity associated with nausea and mild dizziness, radiating to inguinal area. Patient also reports that he has been having pink urine (gross hematuria) for about 9 days. Assessment: Abdominal pain/ureterric colic Dilatation of the collecting system and renal pelvis and mild inflammatory change, right. S/p stenting, stent was removed. Nonobstructive nephrolithiasis, B/L s/p stenting, L -Creatinine 1.2 on admission. creatinine 0.7 today -Right CVA tenderness -No definite obstructing calculi within the right ureter -Possible early renal infection, right -Left ureteral stent is satisfactorily located -Etiology for multiple calculi unknown. Urine uric acid concentration 93.3, oxalic acid (not available), and TSH 2.886. serum calcium WNL -Repeat CT abd on 02/03/2021 -dilated right renal pelvis; Increased inflammatory change around the right kidney. This most likely represents worsening right sided pyelonephritis obstructing urethral findings can also cause this etiology. -Discussed with urologist Dr. Alford at [facility] in [place] yesterday who advised that we do not need to care about the CT result. The dilation would take 2 to 3 weeks to resolve. No stent needed at this moment. Continue antibiotics and p ain control. Do not need to repeat CT unless he has fever and elevation of white count. Once pain is controlled, patient can be discharged home and follow with [place] next week. 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 -On admission: AST/ALT: 9/15, alkaline phos 70, total bilirubin 1.2 Cholelithiasis Obesity, BMI 36.4 Plan: 1. Patient was switched to inpatient status. 2. Blood culture and urine culture-no growth so far. Will discontinue ceftriaxone to 2 g daily. She will be discharged on Cipro 500 mg twice daily for 7 days. Blood culture and urine culture no growth 3. Repeat UA -hematuria improved 4. Repeat renal function daily in morning 5. Pain management including IV Dilaudid (decreased) 6. Monitor hemoglobin 7. Follow with PCP, GI and surgeon for his liver granulomas, cholelithiasis and obesity Today patient does not have any new complaints. Pain is significantly improved. Afebrile. White blood cells went down to 9.38. Creatinine 0.7. Hemoglobin 12.7. Denies headache, dizziness, chest pain, shortness of breath, nausea, vomiting, or diarrhea. Patient can walk. Patient will be discharged home to follow with PCP in 3 days, GI (for liver granulomas) in 1 week and urology in [place] next week. Repeat a CBC, CMP and electrolytes in [address] until approval from MD. Call PCP for medical issues. HPI Initial Comments: arlette is a 30-year-old male with a history of nephrolithiasis status post stenting who presented to the ER due to right flank pain for 3 days. The pain is constant, sharp in nature and a 8 out of 10 in severity associated with nausea and mild dizziness, radiating to inguinal area. Patient also reports that he has been having pink urine (gross hematuria) for about 9 days. he had stents placed bilaterally by urologist in [place] on Wednesday (3 days ago) but the stent was removed from right side. Otherwise the patient is fine. Denies headache, chest pain, shortness of breath, diarrhea, fever, or chills. Patient has never had a similar problems before. In the ER, CT abdomen showed dilated the right kidney collecting system at the renal pelvis. Mild inflammatory change is seen around the right ureter; left ureteral stent which is satisfactory located; nonobstructing bilateral renal calculi are seen. Patient was admitted to the hospital for pain control and antibiotics. Diagnosis: Stroke: No - Discharge Data Discharge Date: 02/05/21 Discharge Disposition: Home, Self-Care 01 Condition: Good - Referral to Home Health Primary Care Physician: PCP None - Patient Summary/Data Consults: Consultations 02/03/21 10:56 Consult to Physical Therapy [PT Evaluation and Treatment] [CONS] Routine 02/03/21 10:59 Consult to Occupational Therapy [OT Evaluation and Treatment] [CONS] Routine Recommended Follow-up Testing/Procedures: follow with PCP in 3 days, GI (for liver granulomas) in 1 week and urology in [place] next week. Follow with surgeon for cholelithiasis. Repeat a CBC, CMP and electrolytes in [address] until approval from MD. Call PCP for medical issues. - Patient Instructions Diet: Regular Diet as Tolerated Activity: As Tolerated Driving: Do Not Drive Notify Provider of: Fever, Increased Pain, Swelling and Redness, Drainage, Nausea and/or Vomiting - Discharge Plan *PRESCRIPTION DRUG MONITORING PROGRAM REVIEWED*: Not Applicable *COPY OF PRESCRIPTION DRUG MONITORING REPORT IN PATIENT CAESAR: Not Applicable Prescriptions/Med Rec: Ciprofloxacin HCl [Cipro] 500 mg PO BID #14 tablet Hydrocodone/Acetaminophen [Hydrocodone-Acetamin 5-325 mg] 1 each PO Q6HR PRN #10 tablet PRN Reason: Pain (Moderate 4-6) Acetaminophen [Tylenol] 650 mg PO Q6H PRN #20 tablet PRN Reason: Pain (Mild 1-3)/fever Home Medications: Home Meds Acetaminophen [Tylenol] 650 mg PO Q6H PRN #20 tablet 02/05/21 [Rx] Ciprofloxacin HCl [Cipro] 500 mg PO BID #14 tablet 02/05/21 [Rx] Hydrocodone/Acetaminophen [Hydrocodone-Acetamin 5-325 mg] 1 each PO Q6HR PRN #10 tablet 02/05/21 [Rx] Patient Handouts: Sepsis, Self Care, Adult Forms: ED Department Discharge Referrals: see, urology in [place] next week (or sooner) [Other] Dimitri Stanford NP [Nurse Practitioner] - 02/07/21 8:30 am (This appt. is to Establish Care and follow up from Hospital stay.) Anselmo Lucas MD [Ordering Only Provider] - 02/20/21 9:30 am (East entrance door # [phone] appt. Please check in at 9:30 appt. times is at 10:00 Central time. This appt. is urology) Arlen Bacon MD [Physician] - (Patient will follow up on his own.) see, GI in 1 week for Liver granuloma [Other] - Discharge Summary/Plan Comment DC Time >30 min.: Yes - General Info Date of Service: 02/05/21 Admission Dx/Problem (Free Text: Admission Diagnosis/Problem Admission Diagnosis/Problem Flank pain Subjective Update: Patient is a 30-year-old male with a history of nephrolithiasis status post stenting who presented to the ER due to right flank pain for 3 days. The pain is constant, sharp in nature and a 8 out of 10 in severity associated with nausea and mild dizziness, radiating to inguinal area. Patient also reports that he has been having pink urine (gross hematuria) for about 9 days. Patient still has right flank pain but the pain is significantly improved. Denies nausea, vomiting, fever, or chills. Afebrile White blood cells 9.38, creatinine 0.7 Total bilirubin 0.7 - Review of Systems General: Reports: No Symptoms HEENT: Reports: No Symptoms Pulmonary: Reports: No Symptoms Cardiovascular: Reports: No Symptoms Gastrointestinal: Reports: Other (Right flank pain but it significantly improved) Musculoskeletal: Reports: No Symptoms Skin: Reports: No Symptoms Neurological: Reports: No Symptoms Psychiatric: Reports: No Symptoms - Patient Data Vitals - Most Recent: Last Vital Signs Temp 36.9 C 02/05/21 11:02 Pulse 88 02/05/21 11:09 Resp 18 02/05/21 11:02 BP 138/71 02/05/21 11:02 Pulse Ox 95 02/05/21 11:09 Weight - Most Recent: 121.608 kg I&O - Last 24 hours: Intake & Output 02/04/21 02/05/21 02/05/21 22:59 06:59 14:59 Intake Total 1360 2088 Balance 1360 2088 Lab Results - Last 24 hrs: Laboratory Results - last 24 hr 02/02/21 02/04/21 02/05/21 Range/Units 19:25 12:37 04:35 WBC 9.38 H (4.23-9.07) K/mm3 RBC 4.30 L (4.63-6.08) M/mm3 Hgb 12.7 L (13.7-17.5) gm/dl Hct 36.3 L (40.1-51.0) % MCV 84.4 (79.0-92.2) fl MCH 29.5 (25.7-32.2) pg MCHC 35.0 (32.2-35.5) g/dl RDW Std Deviation 38.2 (35.1-43.9) fL Plt Count 267 (163-337) K/mm3 MPV 10.0 (9.4-12.3) fl Neut % (Auto) 71.7 H (34.0-67.9) % Lymph % (Auto) 16.5 L (21.8-53.1) % [place] % (Auto) 10.3 (5.3-12.2) % Eos % (Auto) 1.2 (0.8-7.0) Baso % (Auto) 0.3 (0.1-1.2) % Neut # (Auto) 6.72 H (1.78-5.38) K/mm3 Lymph # (Auto) 1.55 (1.32-3.57) K/mm3 [place] # (Auto) 0.97 H (0.30-0.82) K/mm3 Eos # (Auto) 0.11 (0.04-0.54) K/mm3 Baso # (Auto) 0.03 (0.01-0.08) K/mm3 Sodium (136-145) mEq/L Potassium (3.5-5.1) mEq/L Chloride (98-107) mEq/L Carbon Dioxide (21-32) mEq/L Anion Gap (5-15) BUN (7-18) mg/dL Creatinine (0.7-1.3) mg/dL Est Cr Clr Drug Dosing mL/min Estimated GFR (MDRD) (>60) mL/min BUN/Creatinine Ratio (14-18) Glucose (70-99) mg/dL Calcium (8.5-10.1) mg/dL Total Bilirubin (0.2-1.0) mg/dL AST (15-37) U/L ALT (16-63) U/L Alkaline Phosphatase (46-116) U/L Total Protein (6.4-8.2) g/dl Albumin (3.4-5.0) g/dl Globulin gm/dL Albumin/Globulin Ratio (1-2) Urine Color Dark yellow (Yellow) Urine Appearance Cloudy H (Clear) Urine pH 7.0 (5.0-8.0) Ur Specific [place] 1.020 (1.005-1.030) Urine Protein 2+ H (Negative) Urine Glucose (UA) Negative (Negative) Urine Ketones 2+ H (Negative) Urine Occult Blood 3+ H (Negative) Urine Nitrite Negative (Negative) Urine Bilirubin Negative (Negative) Urine Urobilinogen 2.0 H (0.2-1.0) Ur Leukocyte Esterase 1+ H (Negative) Urine RBC Too numerous to cnt H (0-5) /hpf Urine WBC Too numerous to cnt H (0-5) /hpf Ur Epithelial Cells 0-5 (0-5) /hpf Urine Bacteria Few (FEW) /hpf Urine Mucus Few (FEW) /hpf Urine Total Volume Random Ur Uric Acid 24 Hr Na 02/05/21 Range/Units 04:35 WBC (4.23-9.07) K/mm3 RBC (4.63-6.08) M/mm3 Hgb (13.7-17.5) gm/dl Hct (40.1-51.0) % MCV (79.0-92.2) fl MCH (25.7-32.2) pg MCHC (32.2-35.5) g/dl RDW Std Deviation (35.1-43.9) fL Plt Count (163-337) K/mm3 MPV (9.4-12.3) fl Neut % (Auto) (34.0-67.9) % Lymph % (Auto) (21.8-53.1) % [place] % (Auto) (5.3-12.2) % Eos % (Auto) (0.8-7.0) Baso % (Auto) (0.1-1.2) % Neut # (Auto) (1.78-5.38) K/mm3 Lymph # (Auto) (1.32-3.57) K/mm3 [place] # (Auto) (0.30-0.82) K/mm3 Eos # (Auto) (0.04-0.54) K/mm3 Baso # (Auto) (0.01-0.08) K/mm3 Sodium 141 (136-145) mEq/L Potassium 3.7 (3.5-5.1) mEq/L Chloride 107 (98-107) mEq/L Carbon Dioxide 25 (21-32) mEq/L Anion Gap 12.7 (5-15) BUN 14 (7-18) mg/dL Creatinine 0.7 (0.7-1.3) mg/dL Est Cr Clr Drug Dosing 177.77 mL/min Estimated GFR (MDRD) > 60 (>60) mL/min BUN/Creatinine Ratio 20.0 H (14-18) Glucose 107 H (70-99) mg/dL Calcium 8.0 L (8.5-10.1) mg/dL Total Bilirubin 0.7 (0.2-1.0) mg/dL AST 16 (15-37) U/L ALT 21 (16-63) U/L Alkaline Phosphatase 74 (46-116) U/L Total Protein 6.0 L (6.4-8.2) g/dl Albumin 2.8 L (3.4-5.0) g/dl Globulin 3.2 gm/dL Albumin/Globulin Ratio 0.9 L (1-2) Urine Color (Yellow) Urine Appearance (Clear) Urine pH (5.0-8.0) Ur Specific [place] (1.005-1.030) Urine Protein (Negative) Urine Glucose (UA) (Negative) Urine Ketones (Negative) Urine Occult Blood (Negative) Urine Nitrite (Negative) Urine Bilirubin (Negative) Urine Urobilinogen (0.2-1.0) Ur Leukocyte Esterase (Negative) Urine RBC (0-5) /hpf Urine WBC (0-5) /hpf Ur Epithelial Cells (0-5) /hpf Urine Bacteria (FEW) /hpf Urine Mucus (FEW) /hpf Urine Total Volume Ur Uric Acid 24 Hr MAYITO Results - Last 24 hrs: Microbiology 02/02/21 21:02 Aerobic Blood Culture - Preliminary Blood - Venous NO GROWTH AFTER 2 DAYS Anaerobic Blood Culture - Preliminary NO GROWTH AFTER 2 DAYS 02/02/21 21:10 Aerobic Blood Culture - Preliminary Blood - Venous - Lab Draw NO GROWTH AFTER 2 DAYS Anaerobic Blood Culture - Preliminary NO GROWTH AFTER 2 DAYS 02/02/21 17:25 Urine Culture - Final Urine, Clean Catch NO GROWTH AFTER 2 DAYS Med Orders - Current: Current Medications Acetaminophen (Acetaminophen 325 Mg Tab) 650 mg PO Q6H PRN PRN Reason: Pain (Mild 1-3)/fever Hydrocodone Bitart/Acetaminophen (Acetaminophen/Hydrocodone 325-5 Mg Tab) 1 tab PO Q6H PRN PRN Reason: Pain (moderate 4-6) Last Admin: 02/04/21 16:17 Dose: 1 tab Documented by: Albuterol/Ipratropium (Albuterol/Ipratropium 3.0-0.5 Mg/3 Ml Neb Soln) 3 ml NEB Q4H PRN PRN Reason: Shortness Of Breath/wheezing Docusate Sodium (Docusate Sodium 100 Mg Cap) 100 mg PO BID PRN PRN Reason: Constipation Last Admin: 02/04/21 05:22 Dose: 100 mg Documented by: Hydralazine HCl (Hydralazine 20 Mg/Ml Sdv) 10 mg IVPUSH Q4H PRN PRN Reason: Hypertension Hydromorphone HCl (Hydromorphone 0.5 Mg/0.5 Ml Syringe) 0.5 mg IVPUSH Q4H PRN PRN Reason: Pain (severe 7-10) Sodium Chloride (Normal Saline) 1,000 mls @ 70 mls/hr IV ASDIRECTED MARTHA Last Admin: 02/05/21 05:24 Dose: 70 mls/hr Documented by: Promethazine HCl 12.5 mg/ (Sodium Chloride) 50.5 mls @ 100 mls/hr IV Q6H PRN PRN Reason: Nausea/Vomiting Ceftriaxone Sodium 2 gm/ (Sodium Chloride) 100 mls @ 200 mls/hr IV Q24H MARTHA Last Admin: 02/04/21 17:57 Dose: 200 mls/hr Documented by: Lorazepam (Lorazepam 2 Mg/Ml Sdv) 0.5 mg IV Q6H PRN PRN Reason: Anxiety Sodium Chloride (Sodium Chloride 0.9% 10 Ml Syringe) 10 ml FLUSH ASDIRECTED PRN PRN Reason: Keep Vein Open Last Admin: 02/02/21 17:52 Dose: 10 ml Documented by: Discontinued Medications Hydromorphone HCl (Hydromorphone 0.5 Mg/0.5 Ml Syringe) 0.5 mg IVPUSH ONETIME ONE Stop: 02/02/21 17:43 Last Admin: 02/02/21 17:52 Dose: 0.5 mg Documented by: Hydromorphone HCl (Hydromorphone 0.5 Mg/0.5 Ml Syringe) 0.5 mg IVPUSH Q2H PRN PRN Reason: Pain (severe 7-10) Last Admin: 02/03/21 09:17 Dose: 0.5 mg Documented by: Hydromorphone HCl (Hydromorphone 1 Mg/Ml Syringe) 1 mg IVPUSH Q2H PRN PRN Reason: Pain Last Admin: 02/05/21 04:51 Dose: 1 mg Documented by: Ceftriaxone Sodium 2 gm/ (Sodium Chloride) 100 mls @ 200 mls/hr IV ONETIME ONE Stop: 02/02/21 19:41 Last Admin: 02/02/21 19:29 Dose: 200 mls/hr Documented by: Ceftriaxone Sodium 1 gm/ (Sodium Chloride) 100 mls @ 200 mls/hr IV Q24H MARTHA Magnesium Sulfate (Magnesium Sulfate In Water 2 Gm/50 Ml) 2 gm in 50 mls @ 25 mls/hr IV Q1H MARTHA Last Admin: 02/03/21 10:43 Dose: Not Given Documented by: Magnesium Sulfate (Magnesium Sulfate In Water 2 Gm/50 Ml) 2 gm in 50 mls @ 25 mls/hr IV ONETIME ONE Stop: 02/03/21 11:44 Last Admin: 02/03/21 09:48 Dose: 25 mls/hr Documented by: Lorazepam (Lorazepam 2 Mg/Ml Sdv) 0.5 mg IVPUSH ONETIME ONE Stop: 02/02/21 17:43 Last Admin: 02/02/21 17:51 Dose: 0.5 mg Documented by: Magnesium Hydroxide (Magnesium Hydroxide 400 Mg/5 Ml Susp 30 Ml Cup) 30 ml PO ONETIME ONE Stop: 02/04/21 18:05 Last Admin: 02/04/21 18:10 Dose: 30 ml Documented by: - Exam General: Reports: Alert, Oriented, Cooperative, No Acute Distress HEENT: Reports: Pupils Equal, Pupils Reactive, EOMI Neck: Reports: Supple, No JVD, No Thyromegaly Lungs: Reports: Clear to Auscultation, Normal Respiratory Effort Cardiovascular: Reports: Regular Rate, Regular Rhythm, No Murmurs GI/Abdominal Exam: Normal Bowel Sounds, Soft, Non-Tender, No Organomegaly Back Exam: Reports: CVA Tenderness (R) (Significantly improved) Skin: Reports: Warm, Dry, Intact Neurological: Reports: Normal Speech, Normal Tone, Strength Equal Bilateral, Reflexes Equal Bilateral, Sensation Intact Psy/Mental Status: Reports: Normal Affect, Normal Mood
== END 2021-02-05 12:37 | disposition home or self-care (01) | DRG 466 ==
LOC: JD.ED 16:54 → JD.MS 20:02 → OBSVTOIN 02-03 11:15 → JD.MS 02-03 19:52
PROVIDERS: ADMIT Internal Medicine; ATTEND Internal Medicine
DX: T83.83XA Hemorrhage due to genitourinary prosthetic devices, implants and grafts, initial encounter (principal); N39.0 Urinary tract infection, site not specified; N20.2 Calculus of kidney with calculus of ureter; K21.9 Gastro-esophageal reflux disease without esophagitis; R31.0 Gross hematuria; K75.3 Granulomatous hepatitis, not elsewhere classified; K80.20 Calculus of gallbladder without cholecystitis without obstruction; E66.9 Obesity, unspecified; Z79.891 Long term (current) use of opiate analgesic; Z79.2 Long term (current) use of antibiotics; Z68.36 Body mass index [BMI] 36.0-36.9, adult
CPT/HCPCS: 36415; 74176; 74176-26; 80053; 81001; 83735; 84443; 84484; 84560; 85025; 87040; 87086; 94762; 96365; 96367; 96375; 96376; 99220; 99233; 99239; 99284; 99285-25; A9270-GY; G0378; J0696; J1170; J2060; J3475; J7030; U0002

== ENCOUNTER 2021-02-20 20:29 | Emergency (ER) | payer BC ==
[2021-02-20] MEDS ORDERED: HYDROmorphone 1 MG/ML Syringe IVPUSH ONE (21:14)
[2021-02-20] MEDS ORDERED: Ondansetron 4 MG/2 ML SDV IVPUSH ONE (21:14)
--- NOTE | 2021-02-20 21:25 | EDM.PDOC ---
ED HPI GENERAL MEDICAL PROBLEM - General Chief Complaint: Flank Pain Stated Complaint: BACK PAIN Time Seen by Provider: 02/20/21 20:34 Source of Information: Reports: Patient History Limitations: Reports: No Limitations - History of Present Illness INITIAL COMMENTS - FREE TEXT/NARRATIVE: 31-year-old male presents the emergency department today with complaints of left flank pain. Patient has a history of kidney stones with stent placement. He states he had the stent removed today at [address] Anselmo Lucas, urologist at [facility] in [place]. He states that postop he was monitored for approximately 20 minutes for pain and other issues. Patient states he did not have any pain while in postop however once he was discharged, and approximately 45 minutes later he developed severe stabbing pain to his left flank that has not let up. He denies any fever or chills vomiting or diarrhea. He states he is nauseated however he is unable to vomit due to an abdominal surgery he had years ago so he is not able to vomit. He states he has been dry heaving however and he states he feels hot. He also states to noting agnes red blood in his urine however they did tell him this was normal postop. Left Flank Pain Score (Numeric/FACES): 10 - Related Data Allergies Allergy/AdvReac Type Severity Reaction Status Date / Time No Known Allergies Allergy Verified 02/20/21 20:46 Home Meds: Home Meds Hydrocodone/Acetaminophen [Hydrocodone-Acetamin 5-325 mg] 1 each PO Q6HR PRN #10 tablet 02/05/21 [Rx] Cholecalciferol (Vitamin D3) [Vitamin D3] 50 mcg PO 02/20/21 [History] Past Medical History - Past Health History Medical/Surgical History: Denies Medical/Surgical History HEENT History: Reports: Impaired Vision, Other (See Below) Other HEENT History: wear glasses Cardiovascular History: Reports: Other (See Below) Other Cardiovascular History: chest pain, palpitations, pericarditis Respiratory History: Reports: SOB Gastrointestinal History: Reports: GERD Other Gastrointestinal History: anal fistula, pilonidal cyst, Genitourinary History: Reports: Renal Calculus, Other (See Below) Other Genitourinary History: hematuria DESIGN RELEASE ENGINEER History: Reports: None Musculoskeletal History: Reports: None Neurological History: Reports: None Psychiatric History: Reports: None Endocrine/Metabolic History: Reports: Obesity/BMI 30+ Hematologic History: Reports: None Immunologic History: Reports: None Oncologic (Cancer) History: Reports: None Dermatologic History: Reports: None - Infectious Disease History Infectious Disease History: Reports: Chicken Pox - Past Surgical History Head Surgeries/Procedures: Reports: None HEENT Surgical History: Reports: None Cardiovascular Surgical History: Reports: None Respiratory Surgical History: Reports: None GI Surgical History: Reports: Colonoscopy, EGD, Hernia Repair/Other, Other (See Below) Other GI Surgeries/Procedures: pilonidal cystectomy and anal fistulotomy Male Surgical History: Reports: Lithotripsy ([facility]) Endocrine Surgical History: Reports: None Neurological Surgical History: Reports: None Musculoskeletal Surgical History: Reports: None Oncologic Surgical History: Reports: None Dermatological Surgical History: Reports: None Social & Family History - Family History Family Medical History: No Pertinent Family History - Tobacco Use Tobacco Use Status *Q: Former Tobacco User Used Tobacco, but Quit: Yes Month/Year Tobacco Last Used: 7 years ago - Caffeine Use Caffeine Use: Reports: Tea - Recreational Drug Use Recreational Drug Use: No ED ROS GENERAL - Review of Systems Review Of Systems: Comprehensive ROS is negative, except as noted in HPI. ED EXAM, RENAL/ - Physical Exam Exam: See Below Exam Limited By: No Limitations General Appearance: Alert, WD/WN, Moderate Distress Ears: Normal External Exam, Hearing Grossly Normal Nose: Normal Inspection Throat/Mouth: Normal Inspection, Normal Lips, Normal Voice, No Airway Compromise Head: Atraumatic Neck: Normal Inspection, Supple Respiratory/Chest: No Respiratory Distress, Lungs Clear, Normal Breath Sounds, No Accessory Muscle Use, Chest Non-Tender Cardiovascular: Normal Peripheral Pulses, Regular Rate, Rhythm, No Murmur GI/Abdominal: Normal Bowel Sounds, Soft, Non-Tender, No Distention (Male) Exam: Deferred Rectal (Males) Exam: Deferred Back Exam: Normal Inspection Extremities: Normal Inspection Neurological: Alert, Oriented, Normal Cognition Psychiatric: Normal Affect, Normal Mood Skin Exam: Warm, Intact, Normal Color, No Rash, Diaphoretic Lymphatic: No Adenopathy Course - Vital Signs Text/Narrative:: Patient's presents with pain to left flank rated 10 out of 10. He had a stent removed from his left kidney approximately 6 hours ago. States he was monitored in postop and did not have pain during the postop period but did develop pain 45 minutes after being discharged from hospital. He states that the pain is constant and it is a stabbing pain to his left flank rated 10 out of 10. I phoned the urologist on-call at [facility] in [place] and spoke with Dr. Barrington Rod. His recommendations is to get the patient's pain and nausea under control. He states that if we CT the patient we likely will not see any blockage as it is too early and the patient has not fully rehydrated himself yet. He states the pain may also be due to edema at the opening of the ureter of the bladder and once this swelling decreases so we will the pain. Once we get the patient's pain and nausea under control we can discharge him to home with strong return precautions. Should he develop a fever or the pain returned and is unbearable he is to return to the emergency department and likely need to be transferred to [place]. I have ordered for the patient to receive Dilaudid 1 mg IV and 4 mg of Zofran IV. Last Recorded V/S: Last Vital Signs Temp 97.2 F 02/20/21 20:39 Pulse 92 02/20/21 20:39 Resp 20 02/20/21 20:39 BP 132/78 02/20/21 20:39 Pulse Ox 97 02/20/21 20:39 - Orders/Labs/Meds Meds: Medications Discontinued Medications Generic Name Dose Route Start Last Admin Trade Name Anastacio PRN Reason Stop Dose Admin Fentanyl 50 mcg 02/20/21 22:12 02/20/21 23:37 Fentanyl 100 Mcg/2 Ml Sdv IVPUSH 02/20/21 22:13 Not Given ONETIME ONE Hydromorphone HCl 1 mg 02/20/21 21:14 02/20/21 21:22 Hydromorphone 1 Mg/Ml Syringe IVPUSH 02/20/21 21:15 1 mg ONETIME ONE Administration Sodium Chloride 1,000 mls @ 999 mls/hr 02/20/21 22:11 02/20/21 22:22 Normal Saline IV 02/20/21 23:11 999 mls/hr ONETIME ONE Administration Ketorolac Tromethamine 30 mg 02/20/21 22:19 Ketorolac 30 Mg/Ml Sdv IVPUSH 02/20/21 22:20 ONETIME ONE Metoclopramide HCl 7.5 mg 02/20/21 22:11 02/20/21 22:22 Metoclopramide 10 Mg/2 Ml Sdv IVPUSH 02/20/21 22:12 7.5 mg ONETIME ONE Administration Ondansetron HCl 4 mg 02/20/21 21:14 02/20/21 21:22 Ondansetron 4 Mg/2 Ml Sdv IVPUSH 02/20/21 21:15 4 mg ONETIME ONE Administration - Re-Assessments/Exams Free Text/Narrative Re-Assessment/Exam: 02/20/21 22:13 Went in to reevaluate the patient and he is sitting at the bedside dry heaving. He states that his nausea is no better and that his pain is slightly better whe n sitting on the bedside however he is unable to lay flat due to the severity of his pain. I have ordered for the patient to receive a liter of normal saline due to vomiting and dry heaving, Reglan 7.5 mg and fentanyl 50 mics and toradol 30mg. 02/20/21 23:45 Patient did refuse the fentanyl and Toradol. His liter of IV fluids is complete and I went to check on him. He states that he is having 0 pain and his nausea is much better. He would like to try and go home. I will discharge to home with strong return precautions. Departure - Departure Time of Disposition: 23:46 Disposition: Home, Self-Care 01 Condition: Good Clinical Impression: Left flank pain - Discharge Information Referrals: PCP,Not In Area [Primary Care Provider] - Forms: ED Department Discharge Additional Instructions: You are seen in the emergency department this evening after having a stent removed from your left kidney this afternoon. Urology at [facility] in [place] was consulted and they recommended getting your pain under control as well as your nausea. You were given 2 doses of nausea medication and a dose of IV pain medication as well as a liter of IV fluids. He states this did resolve your pain as well as your nausea. You will be discharged home with recommendations that you rest and drink plenty of fluids. However, you do need to return to the emergency department should you develop fever or chills, or your flank pain returns in the severity is when you were initially seen in the emergency department. Sepsis Event Note (ED) - Evaluation Sepsis Screening Result: No Definite Risk - Focused Exam Vital Signs: Vital Signs Temp Pulse Resp BP Pulse Ox 02/20/21 20:39 97.2 F 92 20 132/78 97
[2021-02-20] MEDS ORDERED: Metoclopramide 10 MG/2 ML SDV IVPUSH ONE (22:11)
[2021-02-20] MEDS ORDERED: Sodium Chloride 0.9% 1,000 ML IV ONE (22:11)
[2021-02-20] MEDS ORDERED: fentaNYL 100 MCG/2 ML SDV IVPUSH ONE (22:12)
[2021-02-20] MEDS ORDERED: Ketorolac 30 MG/ML SDV IVPUSH ONE (22:19)
== END 2021-02-20 23:50 | disposition home or self-care (01) ==
LOC: JD.ED 20:29
DX: R10.9 Unspecified abdominal pain (principal); E66.9 Obesity, unspecified; Z87.891 Personal history of nicotine dependence; Z68.32 Body mass index [BMI] 32.0-32.9, adult
CPT/HCPCS: 96374; 96375; 99283; J1170; J2405; J2765; J7030; 99284

== ENCOUNTER 2021-06-09 07:23 | Emergency (ER) | payer BC ==
--- NOTE | 2021-06-09 07:52 | EDM.PDOC ---
ED HPI GENERAL MEDICAL PROBLEM - General Chief Complaint: Chest Pain Stated Complaint: CHEST PAIN/HIGH HEART RATE Time Seen by Provider: 06/09/21 07:48 Source of Information: Reports: Patient History Limitations: Reports: No Limitations - History of Present Illness INITIAL COMMENTS - FREE TEXT/NARRATIVE: 31-year-old male presents to the ED with diffuse central chest discomfort rating up into his neck and throat that awoke him from sleep around 0200 hrs. this morning. No nausea or vomiting. No acid taste No feeling of need to burp or belch to relieve the discomfort. Patient underwent a Sam fundoplication about 11 months ago because of severe reflux disease. He has a history apparently of pericarditis. Pain is worse with sitting up. He also feels more dyspneic sitting up. Feels the pressure up in his throat both sides of his anterior neck. No trouble swallowing. He has been able to eat normally since his Sam fundoplication. No known heart disease. ECG done by triage nurse shows sinus rhythm at 77/min with a nonspecific intraventricular conduction delay and changes in the inferior wall compared with an old inferior wall LA. Current pain is rated as a 4-5 out of 10. Worse with sitting up. Onset: Today, Sudden Onset Date: 06/09/21 Onset Time: 02:00 Duration: Hour(s):, Constant, Improving (Pain is a bit better in his central chest than it was when he first woke up) Location: Reports: Chest (Central chest rating up into his anterior neck. No pain in his back.) Quality: Reports: Ache, Pressure, Other Severity: Moderate (Squeezing discomfort. 4-5 out of 10 at present. It was 8 or 9 out of 10 initially) Improves with: Reports: None Worsens with: Reports: Other (Feels worse dyspnea with sitting up.). Denies: Medication Context: Denies: Activity, Exercise, Sick Contact, Trauma, Other Associated Symptoms: Reports: Chest Pain, Malaise, Shortness of Breath, Weakness (None.). Denies: Confusion, Cough, cough w sputum, Diaphoresis, Headaches, Loss of Appetite, Nausea/Vomiting, Seizure, Syncope Treatments PACKING CHECKER: Reports: Other (see below) Middle Chest Pain Score (Numeric/FACES): 6 - Related Data Allergies Allergy/AdvReac Type Severity Reaction Status Date / Time No Known Allergies Allergy Verified 02/20/21 20:46 Home Meds: Home Meds Diclofenac Sodium [Voltaren] 75 mg PO BIDMEALS #16 tab.cr 06/09/21 [Rx] Famotidine [Pepcid AC] 20 mg PO DAILY #14 tablet 06/09/21 [Rx] oxyCODONE HCl/Acetaminophen [Percocet 5-325 mg Tablet] 1 - 2 each PO Q4H PRN #12 tablet 06/09/21 [Rx] predniSONE [Prednisone] 20 mg PO ASDIRECTED #18 tablet 06/09/21 [Rx] traMADol [Ultram] 50 mg PO TID 06/09/21 [History] Past Medical History - Past Health History Medical/Surgical History: Denies Medical/Surgical History HEENT History: Reports: Impaired Vision, Other (See Below) Other HEENT History: wear glasses Cardiovascular History: Reports: Other (See Below) Other Cardiovascular History: chest pain, palpitations, pericarditis Respiratory History: Reports: SOB Gastrointestinal History: Reports: GERD Other Gastrointestinal History: anal fistula, pilonidal cyst, Genitourinary History: Reports: Renal Calculus, Other (See Below) Other Genitourinary History: hematuria VP MEDICAL History: Reports: None Musculoskeletal History: Reports: None Neurological History: Reports: None Psychiatric History: Reports: None Endocrine/Metabolic History: Reports: Obesity/BMI 30+ Hematologic History: Reports: None Immunologic History: Reports: None Oncologic (Cancer) History: Reports: None Dermatologic History: Reports: None - Infectious Disease History Infectious Disease History: Reports: Chicken Pox - Past Surgical History Head Surgeries/Procedures: Reports: None HEENT Surgical History: Reports: None Cardiovascular Surgical History: Reports: None Respiratory Surgical History: Reports: None GI Surgical History: Reports: Colonoscopy, EGD, Hernia Repair/Other, Other (See Below) Other GI Surgeries/Procedures: pilonidal cystectomy and anal fistulotomy Male Surgical History: Reports: Lithotripsy ([facility]) Endocrine Surgical History: Reports: None Neurological Surgical History: Reports: None Musculoskeletal Surgical History: Reports: None Oncologic Surgical History: Reports: None Dermatological Surgical History: Reports: None Social & Family History - Family History Family Medical History: No Pertinent Family History - Caffeine Use Caffeine Use: Reports: Tea - Living Situation & Occupation Living situation: Reports: Occupation: Employed ED ROS GENERAL - Review of Systems Review Of Systems: See Below Constitutional: Reports: Decreased Appetite. Denies: Fever, Chills, Malaise, Weakness, Fatigue, Weight Loss HEENT: Reports: Glasses Respiratory: Reports: Shortness of Breath. Denies: Wheezing, Pleuritic Chest Pain, Cough, Sputum Cardiovascular: Denies: Chest Pain, Blood Pressure Problem, Claudication, Dyspnea on Exertion, Edema, Lightheadedness, Orthopnea, Palpitations Endocrine: Reports: No Symptoms GI/Abdominal: Reports: Other (History of GERD much improved after Sam fundoplication 11 months ago.). Denies: Constipation, Diarrhea : Reports: No Symptoms Musculoskeletal: Reports: Back Pain (Occasional low back pain) Skin: Reports: No Symptoms Neurological: Reports: No Symptoms Psychiatric: Reports: No Symptoms Hematologic/Lymphatic: Reports: No Symptoms Immunologic: Reports: No Symptoms ED EXAM, GENERAL - Physical Exam Exam: See Below Exam Limited By: No Limitations General Appearance: Alert, WD/WN, Mild Distress, Other (He is very uncomfortable when he sits up. Temperature is 36.8 degrees pulse is 80 and sinus respiratory is 20 with BP 146/92. Pulse ox 99% room air) Eye Exam: Bilateral Eye: Normal Inspection (No blepharal pallor or scleral icterus), PERRL Throat/Mouth: Normal Inspection, Normal Lips, Normal Teeth, Normal Oropharynx Head: Atraumatic, Normocephalic Neck: Normal Inspection, Supple, Non-Tender, Full Range of Motion. No: Carotid Bruit, Lymphadenopathy (L), Lymphadenopathy (R), Thyromegaly Respiratory/Chest: No Respiratory Distress, Lungs Clear, Normal Breath Sounds, No Accessory Muscle Use Cardiovascular: Normal Peripheral Pulses, Regular Rate, Rhythm, No Edema, No Gallop, No Murmur, No Rub Peripheral Pulses: 3+: Carotid (L), Carotid (R), Posterior Tibial (L), Posterior Tibial (R), Dorsalis Pedis (L), Dorsalis Pedis (R) GI/Abdominal: Normal Bowel Sounds, Soft, Non-Tender, No Organomegaly, No Abnormal Bruit, No Mass, Pelvis Stable, Other (Surgery scars from Sam fundoplication done laparoscopically) Back Exam: Normal Inspection, Full Range of Motion. No: CVA Tenderness (L), CVA Tenderness (R) Extremities: Normal Inspection, Normal Range of Motion, Non-Tender, No Pedal Edema Neurological: Alert, Oriented, CN II-XII Intact, Normal Cognition Psychiatric: Normal Affect, Normal Mood Skin Exam: Warm, Dry, Intact, Normal Color, No Rash #1 Interpretation EKG Date: 06/09/21 Time: 07:31 Rhythm: NSR Rate (Beats/Min): 77 [place]: Normal P-Wave: Enlarged (Consider left atrial hypertrophy) QRS: Other (Nonspecific intraventricular conduction delay. 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 Diffuse early repolarization pattern) QT: Normal EKG Interpretation Comments: Abnormal ECG Course - Vital Signs Last Recorded V/S: Last Vital Signs Temp 36.7 C 06/09/21 13:36 Pulse 77 06/09/21 13:36 Resp 20 06/09/21 13:36 BP 122/77 06/09/21 13:36 Pulse Ox 96 06/09/21 13:36 - Orders/Labs/Meds Labs: Laboratory Tests 06/09/21 06/09/21 06/09/21 Range/Units 08:20 08:20 08:20 WBC 8.90 (4.23-9.07) K/mm3 RBC 5.15 (4.63-6.08) M/mm3 Hgb 15.1 (13.7-17.5) gm/dl Hct 43.4 (40.1-51.0) % MCV 84.3 (79.0-92.2) fl MCH 29.3 (25.7-32.2) pg MCHC 34.8 (32.2-35.5) g/dl RDW Std Deviation 39.6 (35.1-43.9) fL Plt Count 241 (163-337) K/mm3 MPV 10.4 (9.4-12.3) fl Neut % (Auto) 72.6 H (34.0-67.9) % Lymph % (Auto) 19.0 L (21.8-53.1) % [place] % (Auto) 7.1 (5.3-12.2) % Eos % (Auto) 0.9 (0.8-7.0) Baso % (Auto) 0.3 (0.1-1.2) % Neut # (Auto) 6.46 H (1.78-5.38) K/mm3 Lymph # (Auto) 1.69 (1.32-3.57) K/mm3 [place] # (Auto) 0.63 (0.30-0.82) K/mm3 Eos # (Auto) 0.08 (0.04-0.54) K/mm3 Baso # (Auto) 0.03 (0.01-0.08) K/mm3 ESR 2 (0-15) mm/hr PT 10.4 (9.7-12.0) SECONDS INR 0.93 APTT 26.0 (21.7-31.4) SECONDS D-Dimer, Quantitative (0.19-0.50) mg/L Sodium (136-145) mEq/L Potassium (3.5-5.1) mEq/L Chloride (98-107) mEq/L Carbon Dioxide (21-32) mEq/L Anion Gap (5-15) BUN (7-18) mg/dL Creatinine (0.7-1.3) mg/dL Est Cr Clr Drug Dosing mL/min Estimated GFR (MDRD) (>60) mL/min BUN/Creatinine Ratio (14-18) Glucose (70-99) mg/dL Calcium (8.5-10.1) mg/dL Magnesium (1.8-2.4) mg/dL Total Bilirubin (0.2-1.0) mg/dL AST (15-37) U/L ALT (16-63) U/L Alkaline Phosphatase (46-116) U/L CK-MB (CK-2) (0-3.6) ng/ml Troponin I (0.00-0.056) ng/mL C-Reactive Protein (<1.0) mg/dL NT-Pro-B Natriuret Pep (0-125) pg/mL Total Protein (6.4-8.2) g/dl Albumin (3.4-5.0) g/dl Globulin gm/dL Albumin/Globulin Ratio (1-2) Urine Color (Yellow) Urine Appearance (Clear) Urine pH (5.0-8.0) Ur Specific [place] (1.005-1.030) Urine Protein (Negative) Urine Glucose (UA) (Negative) Urine Ketones (Negative) Urine Occult Blood (Negative) Urine Nitrite (Negative) Urine Bilirubin (Negative) Urine Urobilinogen (0.2-1.0) Ur Leukocyte Esterase (Negative) Urine RBC (0-5) /hpf Urine WBC (0-5) /hpf Ur Epithelial Cells (0-5) /hpf Urine Bacteria (FEW) /hpf Urine Mucus (FEW) /hpf SARS-CoV-2 RNA (NAHUN) (NEGATIVE) 06/09/21 06/09/21 06/09/21 Range/Units 08:20 08:20 08:20 WBC (4.23-9.07) K/mm3 RBC (4.63-6.08) M/mm3 Hgb (13.7-17.5) gm/dl Hct (40.1-51.0) % MCV (79.0-92.2) fl MCH (25.7-32.2) pg MCHC (32.2-35.5) g/dl RDW Std Deviation (35.1-43.9) fL Plt Count (163-337) K/mm3 MPV (9.4-12.3) fl Neut % (Auto) (34.0-67.9) % Lymph % (Auto) (21.8-53.1) % [place] % (Auto) (5.3-12.2) % Eos % (Auto) (0.8-7.0) Baso % (Auto) (0.1-1.2) % Neut # (Auto) (1.78-5.38) K/mm3 Lymph # (Auto) (1.32-3.57) K/mm3 [place] # (Auto) (0.30-0.82) K/mm3 Eos # (Auto) (0.04-0.54) K/mm3 Baso # (Auto) (0.01-0.08) K/mm3 ESR (0-15) mm/hr PT (9.7-12.0) SECONDS INR APTT (21.7-31.4) SECONDS D-Dimer, Quantitative (0.19-0.50) mg/L Sodium 143 (136-145) mEq/L Potassium 4.0 (3.5-5.1) mEq/L Chloride 107 (98-107) mEq/L Carbon Dioxide 30 (21-32) mEq/L Anion Gap 10.0 (5-15) BUN 7 (7-18) mg/dL Creatinine 0.7 (0.7-1.3) mg/dL Est Cr Clr Drug Dosing 176.14 mL/min Estimated GFR (MDRD) > 60 (>60) mL/min BUN/Creatinine Ratio 10.0 L (14-18) Glucose 101 H (70-99) mg/dL Calcium 8.7 (8.5-10.1) mg/dL Magnesium 1.8 (1.8-2.4) mg/dL Total Bilirubin 0.6 (0.2-1.0) mg/dL AST 14 L (15-37) U/L ALT 28 (16-63) U/L Alkaline Phosphatase 67 (46-116) U/L CK-MB (CK-2) 1.1 (0-3.6) ng/ml Troponin I < 0.017 (0.00-0.056) ng/mL C-Reactive Protein <0.2 (<1.0) mg/dL NT-Pro-B Natriuret Pep 43 (0-125) pg/mL Total Protein 7.5 (6.4-8.2) g/dl Albumin 4.3 (3.4-5.0) g/dl Globulin 3.2 gm/dL Albumin/Globulin Ratio 1.3 (1-2) Urine Color Yellow (Yellow) Urine Appearance Clear (Clear) Urine pH 7.0 (5.0-8.0) Ur Specific [place] 1.010 (1.005-1.030) Urine Protein Negative (Negative) Urine Glucose (UA) Negative (Negative) Urine Ketones Negative (Negative) Urine Occult Blood Trace-intact H (Negative) Urine Nitrite Negative (Negative) Urine Bilirubin Negative (Negative) Urine Urobilinogen 0.2 (0.2-1.0) Ur Leukocyte Esterase Negative (Negative) Urine RBC 0-5 (0-5) /hpf Urine WBC 0-5 (0-5) /hpf Ur Epithelial Cells 0-5 (0-5) /hpf Urine Bacteria Not seen (FEW) /hpf Urine Mucus Not seen (FEW) /hpf SARS-CoV-2 RNA (NAHUN) (NEGATIVE) 06/09/21 06/09/21 Range/Units 08:20 08:56 WBC (4.23-9.07) K/mm3 RBC (4.63-6.08) M/mm3 Hgb (13.7-17.5) gm/dl Hct (40.1-51.0) % MCV (79.0-92.2) fl MCH (25.7-32.2) pg MCHC (32.2-35.5) g/dl RDW Std Deviation (35.1-43.9) fL Plt Count (163-337) K/mm3 MPV (9.4-12.3) fl Neut % (Auto) (34.0-67.9) % Lymph % (Auto) (21.8-53.1) % [place] % (Auto) (5.3-12.2) % Eos % (Auto) (0.8-7.0) Baso % (Auto) (0.1-1.2) % Neut # (Auto) (1.78-5.38) K/mm3 Lymph # (Auto) (1.32-3.57) K/mm3 [place] # (Auto) (0.30-0.82) K/mm3 Eos # (Auto) (0.04-0.54) K/mm3 Baso # (Auto) (0.01-0.08) K/mm3 ESR (0-15) mm/hr PT (9.7-12.0) SECONDS INR APTT (21.7-31.4) SECONDS D-Dimer, Quantitative < 0.19 L (0.19-0.50) mg/L Sodium (136-145) mEq/L Potassium (3.5-5.1) mEq/L Chloride (98-107) mEq/L Carbon Dioxide (21-32) mEq/L Anion Gap (5-15) BUN (7-18) mg/dL Creatinine (0.7-1.3) mg/dL Est Cr Clr Drug Dosing mL/min Estimated GFR (MDRD) (>60) mL/min BUN/Creatinine Ratio (14-18) Glucose (70-99) mg/dL Calcium (8.5-10.1) mg/dL Magnesium (1.8-2.4) mg/dL Total Bilirubin (0.2-1.0) mg/dL AST (15-37) U/L ALT (16-63) U/L Alkaline Phosphatase (46-116) U/L CK-MB (CK-2) (0-3.6) ng/ml Troponin I (0.00-0.056) ng/mL C-Reactive Protein (<1.0) mg/dL NT-Pro-B Natriuret Pep (0-125) pg/mL Total Protein (6.4-8.2) g/dl Albumin (3.4-5.0) g/dl Globulin gm/dL Albumin/Globulin Ratio (1-2) Urine Color (Yellow) Urine Appearance (Clear) Urine pH (5.0-8.0) Ur Specific [place] (1.005-1.030) Urine Protein (Negative) Urine Glucose (UA) (Negative) Urine Ketones (Negative) Urine Occult Blood (Negative) Urine Nitrite (Negative) Urine Bilirubin (Negative) Urine Urobilinogen (0.2-1.0) Ur Leukocyte Esterase (Negative) Urine RBC (0-5) /hpf Urine WBC (0-5) /hpf Ur Epithelial Cells (0-5) /hpf Urine Bacteria (FEW) /hpf Urine Mucus (FEW) /hpf SARS-CoV-2 RNA (NAHUN) Negative (NEGATIVE) Meds: Medications Discontinued Medications Generic Name Dose Route Start Last Admin Trade Name Freq PRN Reason Stop Dose Admin Al Hydroxide/Mg Hydroxide 30 0 ml 06/09/21 08:01 06/09/21 08:20 ml/ Lidocaine HCl 15 ml PO 06/09/21 08:02 45 ml ONETIME ONE Administration Hydromorphone HCl 1 mg 06/09/21 09:36 06/09/21 09:50 Hydromorphone 1 Mg/Ml Syringe IVPUSH 06/09/21 09:37 1 mg ONETIME ONE Administration Hyoscyamine 0.125 mg 06/09/21 08:00 06/09/21 08:21 Hyoscyamine 0.125 Mg Tab.Sl SL 06/09/21 08:01 0.125 mg ONETIME ONE Administration Dextrose/Sodium Chloride 1,000 mls @ 125 mls/hr 06/09/21 08:00 06/09/21 08:21 Dextrose 5%-Normal Saline IV 125 mls/hr ASDIRECTED MARTHA Administration Ketorolac Tromethamine 30 mg 06/09/21 09:45 06/09/21 09:50 Ketorolac 30 Mg/Ml Sdv IVPUSH 30 mg ONETIME MARTHA Administration Methylprednisolone Sodium Succinate 125 mg 06/09/21 12:32 06/09/21 13:41 Methylprednisolone Sodium Succinate 125 Mg/2 Ml Sdv IVPUSH 06/09/21 12:33 125 mg ONETIME ONE Administration Metoclopramide HCl 10 mg 06/09/21 09:37 06/09/21 09:50 Metoclopramide 10 Mg/2 Ml Sdv IVPUSH 06/09/21 09:38 10 mg ONETIME ONE Administration - Radiology Interpretation Free Text/Narrative:: 31-year-old male presents to the ED for evaluation of central chest pressure discomfort that awoke him from sleep around 0200 hrs. this morning. This radiates up into his neck anteriorly both sides. Pain seems to originate in the epigastrium and radiates upward. No radiation to his back. He denies any burping or belching. Patient underwent a Sam fundoplication due to severe reflux disease in June 2020. No known heart disease although he has been told he had pericarditis in the past. Pain is worse with sitting up as well as shortness of breath. He has good air entry to both lung [place] on exam. Normal cardiac sounds. Plan chest x-ray. ECG. Routine labs to include cardiac markers. I suspect is coming from his GI tract due to its pain radiate up into his throat. We will give Levsin 0.125 mg sublingual and a GI cocktail to see if this gives him any relief of the discomfort. - Re-Assessments/Exams Free Text/Narrative Re-Assessment/Exam: 06/09/21 08:33 chest x-ray done portably reveals normal cardiac silhouette and mediastinum. Prominence of the pulmonary arteries appreciated. Diffuse vascular congestion pattern evident. 06/09/21 09:16 Hematology is back ,showing a normal white count at 8.90. Hemoglobin is 15.1 with hematocrit of 43.4 MCV is 84.3 platelet count 241,000 auto differential shows 72.6% neutrophils. 06/09/21 09:37 patient states he did not get any relief from the GI cocktail or Levsin sublingual. We will give him Dilaudid 1 mg IV with Toradol 30 mg IV and Reglan 10 mg IV for pain relief. Describes it as a heavy pressure squeezing pain central chest. 06/09/21 10:08 PT is 10.4 with an INR of 0.93 PTT is 26.0 sodium is 143 with a potassium of 4.0 chloride 107 with a bicarb of 30. Anion gap is 10.0 BUN is 7 with a creatinine of 0.7 and a GFR greater than 60. Glucose is 101. Calcium is 8.7. Magnesium is 1.8. Liver function normal. CK-MB is 1.1 with a troponin I of less than 0.017. C-reactive protein less than 0.2 BNP is 43. Total protein 7.5 with an albumin fraction of 4.3. Urinalysis shows trace of occult blood but 0-5 RBCs on the smear. COVID-19 screen is negative 06/09/21 11:10 D-dimer came back at less than 0.19 06/09/21 12:05: Patient states that his chest pain is much improved after Dilaudid 0.5 mg IV. He still having some central chest pain which is strongly pleuritic with deep breathing and when he bends forward suggestive of pericarditis. His last bout of pericarditis was in July 2019. Plan we'll give him Solu-Medrol 125 mg IV. Plan will then be to start him on prednisone 20 mg twice daily for 6 days and then once daily in the morning for another 6 days. He will also be given Voltaren 75 mg twice daily with breakfast and supper for 8 days to relieve pain and inflammation. He will be given a note to excuse him from the workplace for the rest of this week. Departure - Departure Time of Disposition: 12:33 Disposition: Home, Self-Care 01 Reason for Transfer *Q: Other Condition: Fair Clinical Impression: Chest pain in adult Pericarditis Qualifiers: Pericarditis type: idiopathic Chronicity: acute Qualified Code(s): I30.0 - Acute nonspecific idiopathic pericarditis Prescriptions: Famotidine [Pepcid AC] 20 mg PO DAILY #14 tablet oxyCODONE HCl/Acetaminophen [Percocet 5-325 mg Tablet] 1 - 2 each PO Q4H PRN #12 tablet PRN Reason: pain relief. predniSONE [Prednisone] 20 mg PO ASDIRECTED #18 tablet Diclofenac Sodium [Voltaren] 75 mg PO BIDMEALS #16 tab.cr Instructions: Pericarditis Referrals: Dimitri Stanford NP [Primary Care Provider] - Forms: ED Department Discharge, ED Return to Work/School Form Additional Instructions: Evaluation in the emergency room today in regards to development of significant chest pressure discomfort rating up into your throat with a strong pleuritic or sharp stabbing component to the pain with bending forwards and deep breathing or coughing. As you indicated you have had a previous bout of pericarditis in July 2019 and the findings today are very similar. Chest x-ray revealed a normal-sized heart and mediastinum . Lung showed no sign of pneumonia. Lab test revealed a normal white count with no signs of an infective process. Cardiac markers looking for heart attack proved to be negative. D-dimer was negative which rules out blood clot in the lung. COVID-19 screen was also negative. Therefore it appears that you have a recurrence of pericarditis. You were given Solu-Medrol 125 mg intravenously. You feel better after intravenous pain medication Dilaudid and Toradol. You will need to take prednisone 20 mg twice daily for the next 6 days and then once daily in the morning only for another 6 days to review reduce the inflammation in the lining of your heart. You also need to take anti-inflammatory Voltaren 75 mg twice daily with breakfast and supper for the next 8 days to reduce pain and inflammation in the chest wall as well. 1st dose of prednisone could be taken after supper tonight. May use pain medication Percocet tabs 5 to 25 mg strength ideally 1 tablet every 4-6 hours necessary for pain relief until the anti-inflammatories become effective which is usually a day and a half. Off work for the rest of this we ek. Note given to this effect. Suggest follow-up with your primary care provider on Wednesday this week to make sure you are fit to return to work by Wednesday next week. Sepsis Event Note (ED) - Focused Exam Vital Signs: Vital Signs Temp Pulse Resp BP Pulse Ox 06/09/21 13:36 36.7 C 77 20 122/77 96
[2021-06-09] MEDS ORDERED: Hyoscyamine 0.125 MG Tab.SL SL ONE (08:00)
[2021-06-09] MEDS ORDERED: Dextrose 5%-0.9% NaCl 1,000 ML IV SCH (08:00)
[2021-06-09] MEDS ORDERED: Alum Hydrox/Mag Hydrox/Simeth 30 ML, Lidocaine 2% 15 ML PO ONE ×2 (08:01)
--- NOTE | 2021-06-09 08:34 | CR ---
Chest: Portable view of the chest was obtained. Comparison: Prior chest x-ray of 12/09/20. Heart size and mediastinum are within normal limits for portable technique. Lungs are felt to be clear with no acute parenchymal change. No acute osseous abnormality is appreciated. Impression: 1. Nothing acute is appreciated on portable chest x-ray. Diagnostic code #1
[2021-06-09] MEDS ORDERED: HYDROmorphone 1 MG/ML Syringe IVPUSH ONE (09:36)
[2021-06-09] MEDS ORDERED: Metoclopramide 10 MG/2 ML SDV IVPUSH ONE (09:37)
[2021-06-09] MEDS ORDERED: Ketorolac 30 MG/ML SDV IVPUSH SCH (09:45)
[2021-06-09] MEDS ORDERED: methylPREDNISolone Sodium Succinate 125 MG/2 ML SDV IVPUSH ONE (12:32)
== END 2021-06-09 13:33 | disposition home or self-care (01) ==
LOC: JD.ED 07:23
DX: I30.0 Acute nonspecific idiopathic pericarditis (principal); Z20.822 Contact with and (suspected) exposure to COVID-19; K21.9 Gastro-esophageal reflux disease without esophagitis; E66.9 Obesity, unspecified; Z79.899 Other long term (current) drug therapy; Z68.32 Body mass index [BMI] 32.0-32.9, adult
CPT/HCPCS: 36415; 71045; 80053; 81001; 82553; 83735; 83880; 84484; 85025; 85379; 85610; 85652; 85730; 86140; 87635; 93005; 96374; 96375; 99285; A9270; J1170; J1885; J2765; J2930; J7042; 93010; U0002

== ENCOUNTER 2021-07-24 08:04 | Emergency (ER) | payer BC ==
[2021-07-24] MEDS ORDERED: Sodium Chloride 0.9% 10 ML Syringe FLUSH PRN (08:27)
[2021-07-24] MEDS ORDERED: Sodium Chloride 0.9% 1,000 ML IV ONE (08:27)
[2021-07-24] MEDS ORDERED: HYDROmorphone 1 MG/ML Syringe IVPUSH ONE (08:27)
[2021-07-24] MEDS ORDERED: Tamsulosin 0.4 MG Cap.ER PO ONE (08:27)
[2021-07-24] MEDS ORDERED: Ondansetron 4 MG/2 ML SDV IVPUSH ONE (08:37)
--- NOTE | 2021-07-24 08:39 | EDM.PDOC ---
ED HPI GENERAL MEDICAL PROBLEM - General Chief Complaint: Flank Pain Stated Complaint: KIDNEY STONE Time Seen by Provider: 07/24/21 08:12 Source of Information: Reports: Patient, Old Records (CT and Labs from clinic visit 07/23/21), RN Notes Reviewed History Limitations: Reports: No Limitations - History of Present Illness INITIAL COMMENTS - FREE TEXT/NARRATIVE: Patient is a 31-year-old male who presents to the ER for his flank pain. States that he was diagnosed with a kidney stone yesterday in clinic, review of those images demonstrate a calculus within the left kidney that has moved distally, and now lies at the UPJ. Calculus measures about 8 mm in size; it is felt to cause probable intermittent obstruction at that level. There is also a nonobstructing calculus seen within the right lower kidney also measuring 8 mm. There is mild increase stool without the colon as well but no free fluid inflammatory change/seen. Patient states he was sent home with pain meds, and he took 1 tablet last night, and another 1 prior to going to bed, and one this morning, and states he is not getting any sort of pain relief at all. States that he has not urinated since last night, and when he did he noticed it was "straight blood". Patient appears to be very uncomfortable but is not complaining of any fevers or chills, cough or shortness of breath or any worsening sick-like symptoms. States he believes he has a follow-up appointment with the provider on Thursday, July 29, 2021 but he cannot remember the name of the specialist. He thought it was nephrology. Labs show no acute renal insufficiency, white count was not elevated, and the patient's urinalysis showed red cells and 30-50 white blood cells in the urine but no leukocyte esterase or nitrite. Left Flank Pain Score (Numeric/FACES): 8 - Related Data Allergies Allergy/AdvReac Type Severity Reaction Status Date / Time No Known Allergies Allergy Verified 02/20/21 20:46 Home Meds: Home Meds Diclofenac Sodium [Voltaren] 75 mg PO BIDMEALS #16 tab.cr 06/09/21 [Rx] Famotidine [Pepcid AC] 20 mg PO DAILY #14 tablet 06/09/21 [Rx] oxyCODONE HCl/Acetaminophen [Percocet 5-325 mg Tablet] 1 - 2 each PO Q4H PRN #12 tablet 06/09/21 [Rx] predniSONE [Prednisone] 20 mg PO ASDIRECTED #18 tablet 06/09/21 [Rx] traMADol [Ultram] 50 mg PO TID 06/09/21 [History] Past Medical History HEENT History: Reports: Impaired Vision (wears glasses) Cardiovascular History: Reports: Other (See Below) Other Cardiovascular History: chest pain, palpitations, pericarditis Respiratory History: Reports: SOB Gastrointestinal History: Reports: GERD, Other (See Below) Other Gastrointestinal History: anal fistula, pilonidal cyst Genitourinary History: Reports: Renal Calculus (with ureteral stent placement/removal 01/2021), Other (See Below) Other Genitourinary History: hematuria Musculoskeletal History: Reports: Fracture Other Musculoskeletal History: bilateral ankle fracture in highschool Endocrine/Metabolic History: Reports: Obesity/BMI 30+ - Infectious Disease History Infectious Disease History: Reports: Chicken Pox - Past Surgical History GI Surgical History: Reports: Colonoscopy, EGD, Hernia Repair/Other, Other (See Below) Other GI Surgeries/Procedures: pilonidal cystectomy and anal fistulotomy Male Surgical History: Reports: Lithotripsy ([facility]), Renal Calculus (stent placement for L kidney stone with removal 01/2021) Social & Family History - Family History Family Medical History: No Pertinent Family History - Tobacco Use Tobacco Use Status *Q: Never Tobacco User Second Hand Smoke Exposure: No - Caffeine Use Caffeine Use: Reports: None - Recreational Drug Use Recreational Drug Use: No - Living Situation & Occupation Living situation: Reports: Occupation: Employed ED ROS GENERAL - Review of Systems Review Of Systems: Comprehensive ROS is negative, except as noted in HPI. ED EXAM, RENAL/ - Physical Exam Exam: See Below Exam Limited By: No Limitations General Appearance: Alert, WD/WN, No Apparent Distress Respiratory/Chest: No Respiratory Distress, Lungs Clear, Normal Breath Sounds, No Accessory Muscle Use, Chest Non-Tender Cardiovascular: Normal Peripheral Pulses, Regular Rate, Rhythm, No Edema GI/Abdominal: Normal Bowel Sounds, Soft, Non-Tender, No Distention, No Mass Back Exam: No: CVA Tenderness (L), CVA Tenderness (R) Extremities: Normal Inspection, Normal Capillary Refill Neurological: Alert, Oriented, Normal Cognition, No Motor/Sensory Deficits Psychiatric: Normal Affect, Normal Mood Skin Exam: Warm, Dry, Intact, Normal Color, No Rash Course - Vital Signs Last Recorded V/S: Last Vital Signs Temp 97 F 07/24/21 08:15 Pulse 88 07/24/21 11:04 Resp 16 07/24/21 08:15 BP 142/115 H 07/24/21 08:15 Pulse Ox 97 07/24/21 08:15 - Orders/Labs/Meds Orders: Active Orders 24 hr Category Date Time Status Bladder Scan [RC] ASDIRECTED Care 07/24/21 11:09 Ordered Peripheral IV Care [RC] . DIRECTED Care 07/24/21 08:27 Active Strain Urine [RC] ASDIRECTED Care 07/24/21 08:28 Active CULTURE URINE [MREF] Urgent Lab 07/24/21 13:11 Ordered Sodium Chloride 0.9% [Saline Flush] Med 07/24/21 08:27 Active 10 ml FLUSH ASDIRECTED PRN cefTRIAXone [Rocephin] 2 gm Med 07/24/21 13:11 Ordered Sodium Chloride 0.9% [Normal Saline AdvBag] 100 ml IV ONETIME Peripheral IV Insertion Adult [OM.PC] Routine Oth 07/24/21 08:27 Ordered Medication Orders Sodium Chloride (Sodium Chloride 0.9% 10 Ml Syringe) 10 ml FLUSH ASDIRECTED PRN PRN Reason: Keep Vein Open Last Admin: 07/24/21 08:38 Dose: 10 ml Documented by: CARRILLO Labs: Laboratory Tests 07/24/21 07/24/21 07/24/21 Range/Units 08:45 08:45 11:50 WBC 8.66 (4.23-9.07) K/mm3 RBC 4.69 (4.63-6.08) M/mm3 Hgb 13.9 (13.7-17.5) gm/dl Hct 39.8 L (40.1-51.0) % MCV 84.9 (79.0-92.2) fl MCH 29.6 (25.7-32.2) pg MCHC 34.9 (32.2-35.5) g/dl RDW Std Deviation 41.7 (35.1-43.9) fL Plt Count 270 (163-337) K/mm3 MPV 9.5 (9.4-12.3) fl Neut % (Auto) 75.4 H (34.0-67.9) % Lymph % (Auto) 15.1 L (21.8-53.1) % [facility] % (Auto) 8.4 (5.3-12.2) % Eos % (Auto) 0.7 L (0.8-7.0) Baso % (Auto) 0.3 (0.1-1.2) % Neut # (Auto) 6.52 H (1.78-5.38) K/mm3 Lymph # (Auto) 1.31 L (1.32-3.57) K/mm3 [facility] # (Auto) 0.73 (0.30-0.82) K/mm3 Eos # (Auto) 0.06 (0.04-0.54) K/mm3 Baso # (Auto) 0.03 (0.01-0.08) K/mm3 Sodium 142 (136-145) mEq/L Potassium 3.9 (3.5-5.1) mEq/L Chloride 106 (98-107) mEq/L Carbon Dioxide 23 (21-32) mEq/L Anion Gap 16.9 H (5-15) BUN 11 (7-18) mg/dL Creatinine 0.8 (0.7-1.3) mg/dL Est Cr Clr Drug Dosing 154.13 mL/min Estimated GFR (MDRD) > 60 (>60) mL/min BUN/Creatinine Ratio 13.8 L (14-18) Glucose 102 H (70-99) mg/dL Calcium 8.6 (8.5-10.1) mg/dL Total Bilirubin 1.2 H (0.2-1.0) mg/dL AST 21 (15-37) U/L ALT 25 (16-63) U/L Alkaline Phosphatase 71 (46-116) U/L Total Protein 7.1 (6.4-8.2) g/dl Albumin 4.3 (3.4-5.0) g/dl Globulin 2.8 gm/dL Albumin/Globulin Ratio 1.5 (1-2) Urine Color Yellow (Yellow) Urine Appearance Clear (Clear) Urine pH 6.0 (5.0-8.0) Ur Specific [place] > or = 1.030 (1.005-1.030) Urine Protein 1+ H (Negative) Urine Glucose (UA) Negative (Negative) Urine Ketones 2+ H (Negative) Urine Occult Blood 3+ H (Negative) Urine Nitrite Negative (Negative) Urine Bilirubin Negative (Negative) Urine Urobilinogen 1.0 (0.2-1.0) Ur Leukocyte Esterase 1+ H (Negative) Urine RBC 0-5 (0-5) /hpf Urine WBC 5-10 H (0-5) /hpf Ur Epithelial Cells 0-5 (0-5) /hpf Urine Bacteria Few (FEW) /hpf Urine Mucus Few (FEW) /hpf Meds: Medications Generic Name Dose Route Start Last Admin Trade Name Freq PRN Reason Stop Dose Admin Sodium Chloride 10 ml 07/24/21 08:27 07/24/21 08:38 Sodium Chloride 0.9% 10 Ml Syringe FLUSH 10 ml ASDIRECTED PRN Administration Keep Vein Open Discontinued Medications Generic Name Dose Route Start Last Admin Trade Name Freq PRN Reason Stop Dose Admin Hydromorphone HCl 1 mg 07/24/21 08:27 07/24/21 08:37 Hydromorphone 1 Mg/Ml Syringe IVPUSH 07/24/21 08:28 1 mg ONETIME ONE Administration Hydromorphone HCl 0.5 mg 07/24/21 10:43 07/24/21 12:30 Hydromorphone 0.5 Mg/0.5 Ml Syringe IVPUSH 07/24/21 10:44 0.5 mg ONETIME ONE Administration Sodium Chloride 1,000 mls @ 999 mls/hr 07/24/21 08:27 07/24/21 08:37 Normal Saline IV 07/24/21 09:27 999 mls/hr ONETIME ONE Administration Ketorolac Tromethamine 30 mg 07/24/21 10:08 07/24/21 10:24 Ketorolac 30 Mg/Ml Sdv IVPUSH 07/24/21 10:09 30 mg ONETIME ONE Administration Metoclopramide HCl 10 mg 07/24/21 09:58 07/24/21 10:25 Metoclopramide 10 Mg/2 Ml Sdv IVPUSH 07/24/21 09:59 10 mg ONETIME ONE Administration Ondansetron HCl 4 mg 07/24/21 08:37 07/24/21 08:39 Ondansetron 4 Mg/2 Ml Sdv IVPUSH 07/24/21 08:38 4 mg ONETIME ONE Administration Tamsulosin HCl 0.4 mg 07/24/21 08:27 07/24/21 08:37 Tamsulosin 0.4 Mg Cap.Er PO 07/24/21 08:28 0.4 mg ONETIME ONE Administration - Re-Assessments/Exams Free Text/Narrative Re-Assessment/Exam: 07/24/21 08:39 Patient presents to the ER for evaluation of his ongoing pain due to recent kidney stone diagnosis. States that he has seen specialty provider in the past, and "had a stent placed in the wrong ureter". Has had issues with kidney stones since about January 2021. States he is also had the stent removed in January 2021. Today's purposes; I will go ahead and repeat some labs, urinalysis, given some IV fluids, pain meds and get a KUB x-ray to see if we can identify the stone to see if it has moved any. 07/24/21 10:01 KUB has been performed, there is a stable calcification within the lower right kidney, calculus within the left upper ureter on prior CT cannot be visualized due to bowel gas. I did go assess the patient again, he is still nauseous so we will try 10 mg Reglan for ongoing management. He has still not been able to void. 07/24/21 10:36 Patient was having some ongoing pain, so we did order 30 mg Toradol for management. Metabolic panel shows no acute renal insufficiency however the patient has still not been able to void at this time. We will have to try to get him to urinate before we can send him home. 07/24/21 11:26 I was able to speak with Dr. Ho and he recommends 2 options for the patient, that the patient be transferred there for observation overnight, with possible instrumentation in the morning versus going home, managing pain staying n.p.o. after midnight and showing up to the [place] ER for instrumentation in the morning. Either way Dr. Ho does recommend instrumentation in the morning. Bladder scan only demonstrated 217 mils of urine in the patient's bladder. And he was going to try to urinate for us. Patient would prefer to go to [facility] to be hospitalized and is requesting to be transferred by his private vehicle, and I think this is fine notes that his would be able to take him. States he did have COVID-19 3 weeks ago. I did call [facility] in [place], and they do have some beds available however they were in a call me back for placement. 07/24/21 11:44 I was able to speak with the hospitalist, Dr. Ovalle, and he did accept the patient for observation. 07/24/21 13:12 We did get a call back from [facility] in [place], the patient will have bed ready at about 3 PM are time. I did get a chance to look at his urine, there is 1+ leukocyte esterase with 5-10 white cells, does not appear to have any sort of skin cells to be concerning for contamination, urine culture will be sent and he will be given 2 g IV Rocephin while he waits for his to come get him to take him to [place]. Departure - Departure Time of Disposition: 11:45 Disposition: Refer to Observation Condition: Good Clinical Impression: Kidney stone on left side - Discharge Information *PRESCRIPTION DRUG MONITORING PROGRAM REVIEWED*: No *COPY OF PRESCRIPTION DRUG MONITORING REPORT IN PATIENT CAESAR: No Referrals: Bety Segal, DEQUAN [Primary Care Provider] - Forms: ED Department Discharge Sepsis Event Note (ED) - Evaluation Sepsis Screening Result: No Definite Risk - Focused Exam Vital Signs: Vital Signs Temp Pulse Resp BP Pulse Ox 07/24/21 11:04 88 07/24/21 08:15 97 F 70 16 142/115 H 97 - My Orders Last 24 Hours: My Active Orders 07/24/21 08:27 Peripheral IV Care [RC] . DIRECTED Sodium Chloride 0.9% [Saline Flush] 10 ml FLUSH ASDIRECTED PRN Peripheral IV Insertion Adult [OM.PC] Routine 07/24/21 08:28 Strain Urine [RC] ASDIRECTED 07/24/21 11:09 Bladder Scan [RC] ASDIRECTED 07/24/21 13:11 CULTURE URINE [MREF] Urgent cefTRIAXone [Rocephin] 2 gm Sodium Chloride 0.9% [Normal Saline AdvBag] 100 ml IV ONETIME - Assessment/Plan Last 24 Hours: My Active Orders 07/24/21 08:27 Peripheral IV Care [RC] . DIRECTED Sodium Chloride 0.9% [Saline Flush] 10 ml FLUSH ASDIRECTED PRN Peripheral IV Insertion Adult [OM.PC] Routine 07/24/21 08:28 Strain Urine [RC] ASDIRECTED 07/24/21 11:09 Bladder Scan [RC] ASDIRECTED 07/24/21 13:11 CULTURE URINE [MREF] Urgent cefTRIAXone [Rocephin] 2 gm Sodium Chloride 0.9% [Normal Saline AdvBag] 100 ml IV ONETIME
--- NOTE | 2021-07-24 09:46 | CR ---
Abdomen: Supine view of the abdomen is obtained. Comparison: Prior CT urogram study of 07/23/21. Findings: Calcification is seen within the lower right kidney compatible with nonobstructing stone seen on prior CT study. There was an obstructing stone being seen within the proximal left ureter on prior CT study which cannot be visualized on this exam and may be hidden due to bowel gas. Phleboliths are seen within the pelvis. No other acute abnormality is seen. Impression: 1. Stable calcification within the lower right kidney similar to prior CT study. 2. Calculus within the upper left ureter on prior CT study cannot be visualized on this exam and this may be hidden because of bowel gas. Diagnostic code #2
[2021-07-24] MEDS ORDERED: Metoclopramide 10 MG/2 ML SDV IVPUSH ONE (09:58)
[2021-07-24] MEDS ORDERED: Ketorolac 30 MG/ML SDV IVPUSH ONE (10:08)
[2021-07-24] MEDS ORDERED: HYDROmorphone 0.5 MG/0.5 ML Syringe IVPUSH ONE (10:43)
[2021-07-24] MEDS ORDERED: cefTRIAXone 2 GM in Sodium Chloride 0.9% 100 ML IV ONE (13:11)
== END 2021-07-24 14:45 | disposition other institution (70) ==
LOC: JD.ED 08:04
DX: N20.2 Calculus of kidney with calculus of ureter (principal); K21.9 Gastro-esophageal reflux disease without esophagitis; E66.9 Obesity, unspecified; Z68.34 Body mass index [BMI] 34.0-34.9, adult; Z79.899 Other long term (current) drug therapy
CPT/HCPCS: 36415; 74018; 80053; 81001; 85025; 87086; 96365; 96375; 96376; 99285; A9270; J0696; J1170; J1885; J2405; J2765; J7030

== ENCOUNTER 2021-10-22 08:41 | Emergency (ER) | payer BC ==
[2021-10-22] MEDS ORDERED: Sodium Chloride 0.9% 10 ML Syringe FLUSH PRN (09:13)
== END 2021-10-22 10:15 | disposition home or self-care (01) ==
LOC: JD.ED 08:41
DX: R07.89 Other chest pain (principal); R00.2 Palpitations; R42 Dizziness and giddiness; E66.9 Obesity, unspecified; Z68.32 Body mass index [BMI] 32.0-32.9, adult
CPT/HCPCS: 36415; 71045; 71045-26; 80053; 82947; 84484; 85027; 93005; 93010; 93225; 93226; 99285; 99285-25

== ENCOUNTER 2021-12-01 10:48 | Emergency (ER) | payer BC ==
[2021-12-01] MEDS ORDERED: Ondansetron 4 MG/2 ML SDV IVPUSH ONE (11:14)
[2021-12-01] MEDS ORDERED: Sodium Chloride 0.9% 10 ML Syringe FLUSH PRN (11:14)
[2021-12-01] MEDS ORDERED: Sodium Chloride 0.9% 1,000 ML IV SCH (11:15)
[2021-12-01] MEDS ORDERED: HYDROmorphone 1 MG/ML Syringe IVPUSH ONE (11:26)
== END 2021-12-01 14:22 | disposition home or self-care (01) ==
LOC: JD.ED 10:48
DX: N20.0 Calculus of kidney (principal); K80.20 Calculus of gallbladder without cholecystitis without obstruction; R31.9 Hematuria, unspecified; E66.9 Obesity, unspecified; Z68.34 Body mass index [BMI] 34.0-34.9, adult
CPT/HCPCS: 36415; 74176; 80053; 81001; 85025; 96374; 96375; 99284; J1170; J2405; J7030; 99285

== ENCOUNTER 2022-08-29 16:46 | Emergency (ER) | payer BC ==
[2022-08-29] MEDS ORDERED: Sodium Chloride 0.9% 10 ML Syringe FLUSH PRN (17:03)
[2022-08-29] MEDS ORDERED: Ketorolac 30 MG/ML SDV IVPUSH ONE (17:36)
[2022-08-29] MEDS ORDERED: Aspirin 81 MG Tab.Chew PO ONE (17:36)
[2022-08-29] MEDS ORDERED: HYDROmorphone 0.5 MG/0.5 ML Syringe IVPUSH ONE (17:36)
[2022-08-29] MEDS ORDERED: Ondansetron 4 MG/2 ML SDV IVPUSH ONE (17:36)
[2022-08-29 18:12] LABS: ESTIMATED GFR 116 mL/min (>60)
[2022-08-29] MEDS ORDERED: methylPREDNISolone Sodium Succinate 125 MG/2 ML SDV IVPUSH ONE (19:01)
== END 2022-08-29 19:17 | disposition home or self-care (01) ==
LOC: JD.ED 16:46
DX: R07.2 Precordial pain (principal); J45.909 Unspecified asthma, uncomplicated; E66.9 Obesity, unspecified; Z68.31 Body mass index [BMI] 31.0-31.9, adult; Z79.899 Other long term (current) drug therapy
CPT/HCPCS: 36415; 71046; 80053; 84484; 85025; 85379; 86140; 93005; 96374; 96375; 99285; A9270; J1170; J1885; J2405; J2930; J3490

== ENCOUNTER 2022-11-03 14:21 | Emergency (ER) | payer BC | END 2022-11-03 15:40 | disposition left against medical advice (07) | LOC: JD.ED 14:21 | DX: Z53.21 Procedure and treatment not carried out due to patient leaving prior to being seen by health care provider (principal) ==

== ENCOUNTER 2023-09-11 10:51 | Emergency (ER) | payer BC ==
[2023-09-11 12:08] LABS: BASOPHILS ABSOLUTE AUTO 0.1 K/mm3 (0.0-0.2); BASOPHILS PERCENT AUTO 0.7 % (0.0-1.0); EOSINOPHILS ABSOLUTE AUTO 0.1 K/mm3 (0.0-0.4); EOSINOPHILS PERCENT AUTO 1.3 % (0.0-6.0); HEMATOCRIT 42.3 % (42.0-52.0); HEMOGLOBIN 15.1 gm/dl (14.0-18.0); IMMATURE GRAN ABSOLUTE AUTO 0.02 K/mm3 (0.00-0.05); IMMATURE GRAN PERCENT AUTO 0.3 % (0.0-0.4); LYMPHOCYTES ABSOLUTE AUTO 2.3 K/mm3 (1.0-4.8); LYMPHOCYTES PERCENT AUTO 32.2 % (24.0-44.0); MEAN CORPUSCULAR HEMOGLOBIN 29.4 pg (28.0-32.0); MEAN CORPUSCULAR HGB CONC 35.7 g/dl (32.0-36.0); MEAN CORPUSCULAR VOLUME 82.5 fl (83.0-99.0); MEAN PLATELET VOLUME 9.8 fl (9.4-12.4); MONOCYTES ABSOLUTE AUTO 0.4 K/mm3 (0.0-0.8); MONOCYTES PERCENT AUTO 6.2 % (0.0-8.0); NEUTROPHILS ABSOLUTE AUTO 4.2 K/mm3 (1.8-7.7); NEUTROPHILS PERCENT AUTO 59.3 % (41.0-71.0); PLATELET COUNT,PLT 262 K/mm3 (150-400); RED BLOOD CELL COUNT 5.13 M/mm3 (4.52-5.90); WHITE BLOOD CELL COUNT,WBC 7.11 K/mm3 (3.9-11.3)
[2023-09-11 12:25] LABS: A/G RATIO 1.1 (1-2); ALANINE AMINOTRANSFERASE,ALT 17 U/L (16-63); ALBUMIN 3.9 g/dl (3.4-5.0); ALKALINE PHOSPHATASE 82 U/L (46-116); ANION GAP 13.1 (5-15); ASPARTATE AMNIOTRANSFERASE,AST 18 U/L (15-37); BILIRUBIN TOTAL 0.6 mg/dL (0.2-1.0); BLOOD UREA NITROGEN,BUN 9 mg/dL (7-18); CALCIUM 9.1 mg/dL (8.5-10.1); CARBON DIOXIDE,CO2 28 mEq/L (21-32); CHLORIDE,CL 104 mEq/L (98-107); EST CRCL DRUG DOSING (CG) 121.02 mL/min; ESTIMATED GFR 101 mL/min (>60); GLUCOSE RANDOM 98 mg/dL (70-99); MAGNESIUM 1.8 mg/dL (1.8-2.4); POTASSIUM,K 4.1 mEq/L (3.5-5.1); PROTEIN TOTAL,TP 7.6 g/dl (6.4-8.2); SODIUM,NA 141 mEq/L (136-145)
[2023-09-11 12:38] LABS: C-REACTIVE PROTEIN < 0.2 mg/dL (<1.0)
== END 2023-09-11 14:09 | disposition home or self-care (01) ==
LOC: JD.ED 10:51
DX: R10.12 Left upper quadrant pain (principal); R00.2 Palpitations; E66.9 Obesity, unspecified; Z86.16 Personal history of COVID-19; Z68.32 Body mass index [BMI] 32.0-32.9, adult
CPT/HCPCS: 36415; 71046; 71046-26; 80053; 83735; 84484; 85025; 86140; 86308; 93005; 99285

== ENCOUNTER 2023-12-20 17:08 | Emergency (ER) | payer BC ==
[2023-12-20] MEDS: Sodium Chloride 0.9% 10 ML Syringe FLUSH PRN (17:49)
[2023-12-20] MEDS: HYDROmorphone 0.5 MG/0.5 ML Syringe IVPUSH ONE (17:49)
[2023-12-20] MEDS: Sodium Chloride 0.9% 1,000 ML IV SCH (17:49)
[2023-12-20 17:59] LABS: BASOPHILS ABSOLUTE AUTO 0.1 K/mm3 (0.0-0.2); BASOPHILS PERCENT AUTO 0.9 % (0.0-1.0); EOSINOPHILS ABSOLUTE AUTO 0.1 K/mm3 (0.0-0.4); EOSINOPHILS PERCENT AUTO 1.7 % (0.0-6.0); HEMATOCRIT 45.4 % (42.0-52.0); IMMATURE GRAN ABSOLUTE AUTO 0.01 K/mm3 (0.00-0.05); IMMATURE GRAN PERCENT AUTO 0.1 % (0.0-0.4); LYMPHOCYTES ABSOLUTE AUTO 2.2 K/mm3 (1.0-4.8); LYMPHOCYTES PERCENT AUTO 31.6 % (24.0-44.0); MEAN CORPUSCULAR HEMOGLOBIN 29.5 pg (28.0-32.0); MEAN CORPUSCULAR HGB CONC 35.2 g/dl (32.0-36.0); MEAN CORPUSCULAR VOLUME 83.6 fl (83.0-99.0); MEAN PLATELET VOLUME 10.2 fl (9.4-12.4); MONOCYTES ABSOLUTE AUTO 0.5 K/mm3 (0.0-0.8); MONOCYTES PERCENT AUTO 7.8 % (0.0-8.0); NEUTROPHILS PERCENT AUTO 57.9 % (41.0-71.0); PLATELET COUNT,PLT 273 K/mm3 (150-400); RED BLOOD CELL COUNT 5.43 M/mm3 (4.52-5.90); WHITE BLOOD CELL COUNT,WBC 6.94 K/mm3 (3.9-11.3)
[2023-12-20 18:30] LABS: A/G RATIO 1.2 (1-2); ALBUMIN 4.3 g/dl (3.4-5.0); ANION GAP 14.4 (5-15); BILIRUBIN TOTAL 0.4 mg/dL (0.2-1.0); BUN/CREATININE RATIO 11.3 (14-18); CALCIUM 8.8 mg/dL (8.5-10.1); CREATININE 0.8 mg/dL (0.7-1.3); EST CRCL DRUG DOSING (CG) 151.27 mL/min; MAGNESIUM 1.9 mg/dL (1.8-2.4); POTASSIUM,K 4.4 mEq/L (3.5-5.1); PROTEIN TOTAL,TP 7.8 g/dl (6.4-8.2)
[2023-12-20] MEDS: Ketorolac 30 MG/ML SDV IVPUSH ONE (18:46)
[2023-12-20] MEDS: fentaNYL 100 MCG/2 ML SDV IVPUSH ONE (19:27)
== END 2023-12-20 19:34 | disposition home or self-care (01) ==
LOC: JD.ED 17:08
DX: R07.89 Other chest pain (principal); E66.9 Obesity, unspecified; Z79.899 Other long term (current) drug therapy; Z86.19 Personal history of other infectious and parasitic diseases; Z86.16 Personal history of COVID-19; Z68.35 Body mass index [BMI] 35.0-35.9, adult
CPT/HCPCS: 36415; 70450; 71045; 80053; 83735; 84484; 85025; 85379; 93005; 96361; 96374; 96375; 99285; J1170; J1885; J3010; J3490; J7030

== ENCOUNTER 2025-07-25 10:28 | Emergency (ER) | payer BC ==
[2025-07-25] MEDS ORDERED: Sodium Chloride 0.9% 10 ML Syringe FLUSH PRN (10:49)
[2025-07-25 11:00] LABS: BASOPHILS ABSOLUTE AUTO 0.1 K/mm3 (0.0-0.2); BASOPHILS PERCENT AUTO 1.2 % (0.0-1.0); EOSINOPHILS ABSOLUTE AUTO 0.1 K/mm3 (0.0-0.4); EOSINOPHILS PERCENT AUTO 1.5 % (0.0-6.0); IMMATURE GRAN ABSOLUTE AUTO 0.01 K/mm3 (0.00-0.05); IMMATURE GRAN PERCENT AUTO 0.2 % (0.0-0.4); LYMPHOCYTES ABSOLUTE AUTO 2.0 K/mm3 (1.0-4.8); LYMPHOCYTES PERCENT AUTO 33.7 % (24.0-44.0); MEAN PLATELET VOLUME 10.2 fl (9.4-12.4); MONOCYTES ABSOLUTE AUTO 0.4 K/mm3 (0.0-0.8); MONOCYTES PERCENT AUTO 6.6 % (0.0-8.0); NEUTROPHILS ABSOLUTE AUTO 3.4 K/mm3 (1.8-7.7); NEUTROPHILS PERCENT AUTO 56.8 % (41.0-71.0); NRBC ABSOLUTE 0.00 (0.00-0.02); NRBC PERCENT 0.0 % (0.0-0.2); PLATELET COUNT,PLT 263 K/mm3 (150-400); RED BLOOD CELL COUNT 5.18 M/mm3 (4.52-5.90); WHITE BLOOD CELL COUNT,WBC 5.90 K/mm3 (3.9-11.3)
[2025-07-25 11:14] LABS: A/G RATIO 1.4 (1-2); ALANINE AMINOTRANSFERASE,ALT 29 U/L (16-63); ASPARTATE AMNIOTRANSFERASE,AST 20 U/L (15-37); BILIRUBIN TOTAL 0.8 mg/dL (0.2-1.0); BLOOD UREA NITROGEN,BUN 9 mg/dL (7-18); CARBON DIOXIDE,CO2 28 mEq/L (21-32); CHLORIDE,CL 110 mEq/L (98-107); CREATININE 0.7 mg/dL (0.7-1.3); ESTIMATED GFR 122 mL/min (>60); GLUCOSE RANDOM 99 mg/dL (70-99); POTASSIUM,K 4.1 mEq/L (3.5-5.1); PROTEIN TOTAL,TP 7.3 g/dl (6.4-8.2); SODIUM,NA 144 mEq/L (136-145)
[2025-07-25 11:16] LABS: TROPONIN I HIGH SENSITIVITY < 4 pg/mL (<=76)
== END 2025-07-25 12:18 | disposition home or self-care (01) ==
LOC: JD.ED 10:28
DX: R07.89 Other chest pain (principal); J45.909 Unspecified asthma, uncomplicated; Z86.16 Personal history of COVID-19; Z79.899 Other long term (current) drug therapy
CPT/HCPCS: 36415; 71046; 71046-26; 80053; 83690; 84484; 85025; 93005; 93010; 99284; 99285